=== PATIENT | female | born 1940 | race Caucasian/White ===

== ENCOUNTER → 2016-06-03 | Outpatient (CLI) | payer MEDICARE, OTHER | LOC: MW.CHIM 08:00 | PROVIDERS: ATTEND Internal Medicine | DX: I47.1 Supraventricular tachycardia (principal) | CPT/HCPCS: 99204 ==

== ENCOUNTER 2016-06-10 23:52 | Emergency (ER) | payer MEDICARE, OTHER ==
--- NOTE | 2016-06-11 00:11 | EDM.PDOC ---
ED HPI GENERAL MEDICAL PROBLEM - General Chief Complaint: Back Pain or Injury Stated Complaint: PT FELL AT HOME HURT BACK AND HIP Time Seen by Provider: 06/10/16 23:59 - History of Present Illness INITIAL COMMENTS - FREE TEXT/NARRATIVE: HISTORY AND PHYSICAL: History of present illness: The patient is a 75-year-old female who lives at home alone and spends most of her day in a special recliner that elevates to bring her to a standing position and she presents tonight via EMS after she did elevate the chair and she went to stand up and she slid down the chair landing onto her butt and could not get up. According to the patient she did not hit her head pass out or black out and has no head neck or upper back pain but has some lower back pain. She denies any specific pain to me and has no lower upper extremity complaints. Patient has a long-standing history of generalized weakness and says that that is not new and she's been eating and drinking normally without fever chills chest pain shortness of breath nausea vomiting or abdominal complaints. Review of systems: As per history of present illness and below otherwise all systems reviewed and negative. Past medical history: As per history of present illness and as reviewed below otherwise noncontributory. Surgical history: As per history of present illness and as reviewed below otherwise noncontributory. Social history: No reported history of drug or alcohol abuse. Family history: As per history of present illness and as reviewed below otherwise noncontributory. Physical exam: General: Well-developed well-nourished female who is overweight nontoxic speaking clearly and easily in the ER HEENT: Atraumatic, normocephalic, pupils reactive, negative for conjunctival pallor or scleral icterus, mucous membranes moist, throat clear, neck supple, nontender, trachea midline. Lungs: Clear to auscultation, breath sounds equal bilaterally, chest nontender. Heart: S1S2, regular, negative for clicks, rubs, or JVD. Abdomen: Soft, nondistended, nontender. Negative for masses or hepatosplenomegaly. Negative for costovertebral tenderness. Pelvis: Stable nontender. There is no lateral hip tenderness on palpation Genitourinary: Deferred. Rectal: Deferred. Extremities: Atraumatic, negative for cords or calf pain. Neurovascular unremarkable. There is some soft tissue edema of her feet bilaterally but there is no bony tenderness or ecchymosis appreciated Neuro: Awake, alert, oriented. Cranial nerves II through XII unremarkable.sensory unremarkable throughout. Motor of lower extremities is 4/5 in upper extremity is 5/5 in the bed Exam nonfocal. Back: There are no midline step-offs his defects the thoracic lumbar spine no posterior rib posterior pelvis pain there is some soft tissue tenderness on palpation around the lumbar region without abrasion ecchymosis or deformities Diagnostics: X-ray of pelvis and lumbar spine CBC CMP Therapeutics: Patient refused pain medications Please note the patient states uses a walker at home at all times Impression: Minor fall with lower back pain/contusion stable Definitive disposition and diagnosis as appropriate pending reevaluation and review of above. lower back Pain Score (Numeric/FACES): 3 right hip Pain Score (Numeric/FACES): 3 - Related Data Allergies Allergy/AdvReac Type Severity Reaction Status Date / Time codeine Allergy Dizziness Verified 06/11/16 00:05 Home Meds: Home Meds traZODone 200 mg PO BEDTIME 04/11/15 [History] Aspirin 1 tab PO DAILY 05/06/16 [History] Meclizine HCl [Travel Sickness] 25 mg PO ASDIRECTED 05/06/16 [History] Metoprolol Succinate [Toprol XL] 25 mg PO DAILY #30 tab.er 05/07/16 [Rx] Past Medical History HEENT History: Reports: Hard of hearing Cardiovascular History: Reports: None Respiratory History: Reports: COPD Gastrointestinal History: Reports: Cholelithiasis Genitourinary History: Reports: None 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: Reports: None Musculoskeletal History: Reports: Fibromyalgia Neurological History: Reports: None Psychiatric History: Reports: Anxiety Endocrine/Metabolic History: Reports: None Hematologic History: Reports: None Immunologic History: Reports: None Oncologic (Cancer) History: Reports: None Dermatologic History: Reports: None - Infectious Disease History Infectious Disease History: Reports: Chicken pox, Measles Other Infectious Disease History: childhood - Past Surgical History Head Surgeries/Procedures: Reports: None HEENT Surgical History: Reports: None Respiratory Surgical History: Reports: None GI Surgical History: Reports: Cholecystectomy Other GI Surgeries/Procedures: Stomach staple Social & Family History - Family History Family Medical History: Noncontributory HEENT: Reports: None Cardiac: Reports: [place] Respiratory: Reports: None GI: Reports: None : Reports: None OBGYN: Reports: None Musculoskeletal: Reports: None Neurological: Reports: None Psychiatric: Reports: None Endocrine/Metabolic: Reports: None Hematologic: Reports: None Immunologic: Reports: None Dermatologic: Reports: None Oncologic: Reports: None - Tobacco Use Smoking Status *Q: Never Smoker Second Hand Smoke Exposure: No - Caffeine Use Caffeine Use: Reports: Coffee Other Caffeine Use: 2 cups/day Caffeine Use Comment: 2 drinks/day - Recreational Drug Use Recreational Drug Use: No - Living Situation & Occupation Living situation: Reports: Occupation: retired ED ROS GENERAL - Review of Systems Review Of Systems: ROS reveals no pertinent complaints other than HPI. ED EXAM, GENERAL - Physical Exam Exam: See Below (see dictation) Course - Vital Signs Last Recorded V/S: Last Vital Signs Temp 36.5 C 06/11/16 00:06 Pulse 71 06/11/16 00:06 Resp 16 06/11/16 00:06 BP 137/72 06/11/16 00:06 Pulse Ox 96 06/11/16 00:06 - Orders/Labs/Meds Orders: Active Orders 24 hr Category Date Time Status Lumbar Spine 2 or 3V [CR] Stat Exams 06/11/16 00:08 Taken Pelvis 1V or 2V [CR] Stat Exams 06/11/16 00:08 Taken Labs: Laboratory Tests 06/11/16 06/11/16 Range/Units 00:08 00:55 WBC 6.36 (4.0-11.0) K/uL RBC 4.74 (4.30-5.90) M/uL Hgb 12.8 (12.0-16.0) g/dL Hct 39.6 (36.0-46.0) % MCV 83.5 (80.0-98.0) fL MCH 27.0 (27.0-32.0) pg MCHC 32.3 (31.0-37.0) g/dL RDW Std Deviation 51.4 (28.0-62.0) fl RDW Coeff of Britni 17 H (11.0-15.0) % Plt Count 234 (150-400) K/uL MPV 9.80 (7.40-12.00) fL Neut % (Auto) 73.2 (48.0-80.0) % Lymph % (Auto) 14.2 L (16.0-40.0) % [place] % (Auto) 11.6 (0.0-15.0) % Eos % (Auto) 0.8 (0.0-7.0) % Baso % (Auto) 0.2 (0.0-1.5) % Neut # 4.7 (1.4-5.7) K/uL Lymph # 0.9 (0.6-2.4) K/uL [place] # 0.7 (0.0-0.8) K/uL Eos # 0.1 (0.0-0.7) K/uL Baso # 0.0 (0.0-0.1) K/uL Nucleated RBC % 0.0 /100WBC Nucleated RBCs # 0 K/uL Sodium 139 (136-146) mmol/L Potassium 4.1 (3.5-5.1) mmol/L Chloride 102 (98-110) mmol/L Carbon Dioxide 28 (21-31) mmol/L BUN 15 (6.0-23.0) mg/dL Creatinine 1.0 (0.6-1.5) mg/dL Est Cr Clr Drug Dosing 51.40 mL/min Estimated GFR (MDRD) 54.2 ml/min Glucose 127 H (60-110) mg/dL Calcium 9.3 (8.8-10.8) mg/dL Total Bilirubin 0.8 (0.1-1.5) mg/dL AST 11 (5-40) IU/L ALT 8 (8-54) IU/L Alkaline Phosphatase 132 (40-150) Total Protein 7.3 (6.0-8.0) g/dL Albumin 3.6 (3.4-4.8) g/dL Globulin 3.7 H (2.0-3.5) g/dL Albumin/Globulin Ratio 1.0 L (1.3-2.8) Departure - Departure Time of Disposition: 02:00 Disposition: Home, Self-Care 01 Condition: good Clinical Impression: Fall Qualifiers: Encounter type: initial encounter Qualified Code(s): W19.XXXA - Unspecified fall, initial encounter Contusion, back Qualifiers: Encounter type: initial encounter Laterality: unspecified laterality Qualified Code(s): S20.229A - Contusion of unspecified back wall of thorax, initial encounter Forms: ED Department Discharge Additional Instructions: The following information is given to patients seen in the emergency department who are being discharged to home. This information is to outline your options for follow-up care. We provide all patients seen in our emergency department with a follow-up referral. The need for follow-up, as well as the timing and circumstances, are variable depending upon the specifics of your emergency department visit. If you don't have a primary care physician on staff, we will provide you with a referral. We always advise you to contact your personal physician following an emergency department visit to inform them of the circumstance of the visit and for follow-up with them and/or the need for any referrals to a consulting specialist. The emergency department will also refer you to a specialist when appropriate. This referral assures that you have the opportunity for followup care with a specialist. All of these measure are taken in an effort to provide you with optimal care, which includes your followup. Under all circumstances we always encourage you to contact your private physician who remains a resource for coordinating your care. When calling for followup care, please make the office aware that this follow-up is from your recent emergency room visit. If for any reason you are refused follow-up, please contact the [facility] emergency department at and ask to speak to the emergency department charge nurse. [facility] Primary care- Internal Medicine and Family [address] [address] Please take care to use her walker at all times and to be careful to position changing going very slowly was to avoid falls. Please call and followup with your primary care physician and return to ER as needed and as discussed. - My Orders Last 24 Hours: My Active Orders 06/11/16 00:08 Lumbar Spine 2 or 3V [CR] Stat Pelvis 1V or 2V [CR] Stat - Assessment/Plan Last 24 Hours: My Active Orders 06/11/16 00:08 Lumbar Spine 2 or 3V [CR] Stat Pelvis 1V or 2V [CR] Stat
[2016-06-11 02:22] VITALS: BP 153/78
--- NOTE | 2016-06-13 15:51 | CR ---
EXAM DATE: 06/10/16 PATIENT'S AGE: 75 Patient: KATIE DICKENS Facility: [place], [place] Site . Site : 1940 Study: XRay Spine Lumbar [id number]/18/2017 12:53:47 AM Ordering Physician: Doctor Silveira Final Report: INDICATION: Fall TECHNIQUE: Lumbar spine 3 view. COMPARISON: July 01, 2015 FINDINGS: Bones: Unchanged mild lateral listhesis of L4 on L5. No fractures or significant bone lesions. Joints: Mild multilevel degenerative disc and facet disease. Soft tissues: A round calcification in the pelvis may represent a calcified uterine fibroid. IMPRESSION: No acute fracture or subluxation. Dictated by Yessi Doan MD @ Jun 11 2016 12:55AM (Electronic Signature) Report Signed by Proxy and Original Signed Document filed in the Medical Record. [facility]
--- NOTE | 2016-06-13 16:11 | CR ---
EXAM DATE: 06/10/16 PATIENT'S AGE: 75 Patient: KATIE DICKENS Facility: [place], [place] Site . Site : 1940 Study: XRay Pelvis [id number]/18/2017 12:54:09 AM Ordering Physician: Doctor Silveira Final Report: Indication: Fall Technique: Two views pelvis Comparison: July 01, 2015. Findings: Bones: Alignment is normal. No fractures or bone lesions. Joint spaces: Mild to moderate degenerative changes within the hip joints and lower lumbar spine. Soft tissues: Round calcification overlying the pelvis may represent a uterine fibroid. Impression: No acute fracture or subluxation. Dictated by Yessi Doan MD @ Jun 11 2016 1:00AM (Electronic Signature) Report Signed by Proxy and Original Signed Document filed in the Medical Record. [facility]
== END 2016-06-11 02:21 | disposition home or self-care (01) ==
LOC: MW.ED 23:52
DX: S20.229A Contusion of unspecified back wall of thorax, initial encounter (principal); Z90.49 Acquired absence of other specified parts of digestive tract; Z79.899 Other long term (current) drug therapy; Z88.5 Allergy status to narcotic agent; W19.XXXA Unspecified fall, initial encounter; Y92.009 Unspecified place in unspecified non-institutional (private) residence as the place of occurrence of the external cause
CPT/HCPCS: 36415; 72100; 72100-26; 72170; 72170-26; 80053; 85025; 99282; 99284

== ENCOUNTER → 2016-06-22 | Outpatient (CLI) | payer MEDICARE, OTHER | LOC: MW.CHFP 08:00 | PROVIDERS: ATTEND Student in an Organized Health Care Education/Training Program | DX: Z00.8 Encounter for other general examination (principal) | CPT/HCPCS: 99214 ==

== ENCOUNTER 2016-07-22 19:29 | Emergency (ER) | payer MEDICARE, OTHER ==
[2016-07-22] MEDS ORDERED: Sodium Chloride 0.9% 10 ML Syringe FLUSH PRN (19:37)
[2016-07-22] MEDS ORDERED: Sodium Chloride 0.9% 2.5 ML Syringe FLUSH PRN (19:37)
--- NOTE | 2016-07-22 19:40 | EDM.PDOC ---
ED HPI NEURO - General Chief Complaint: Neurological Problem Stated Complaint: DIZZINESS Time Seen by Provider: 07/22/16 19:33 Source of Information: Reports: Patient, EMS History Limitations: Reports: No limitations - History of Present Illness Timing/Duration: Reports: Hour(s): Location (Neuro Complaint): Reports: generalized Quality (Neuro Complaint): Reports: weakness Severity: mild Improves with: Reports: Rest Worsens with: Reports: Movement Associated Symptoms: Reports: other (left hip pain X 3 days) - Related Data Allergies/ADRs: Allergies Allergy/AdvReac Type Severity Reaction Status Date / Time codeine Allergy Dizziness Verified 06/11/16 00:05 Home Meds: Home Meds traZODone 200 mg PO BEDTIME 04/11/15 [History] Aspirin 325 mg PO DAILY 05/06/16 [History] Meclizine HCl [Travel Sickness] 25 mg PO ASDIRECTED 05/06/16 [History] Metoprolol Succinate [Toprol XL] 25 mg PO DAILY #30 tab.er 05/07/16 [Rx] Past Medical History HEENT History: Reports: Hard of hearing Cardiovascular History: Reports: None Respiratory History: Reports: COPD Gastrointestinal History: Reports: Cholelithiasis Genitourinary History: Reports: None RN SANE History: Reports: None Musculoskeletal History: Reports: Fibromyalgia Neurological History: Reports: None Psychiatric History: Reports: Anxiety Endocrine/Metabolic History: Reports: None Hematologic History: Reports: None Immunologic History: Reports: None Oncologic (Cancer) History: Reports: None Dermatologic History: Reports: None - Infectious Disease History Infectious Disease History: Reports: Chicken pox, Measles Other Infectious Disease History: childhood - Past Surgical History Head Surgeries/Procedures: Reports: None HEENT Surgical History: Reports: None Respiratory Surgical History: Reports: None GI Surgical History: Reports: Cholecystectomy Other GI Surgeries/Procedures: Stomach staple Social & Family History - Family History Family Medical History: Noncontributory HEENT: Reports: None Cardiac: Reports: [place] Respiratory: Reports: None GI: Reports: None : Reports: None OBGYN: Reports: None Musculoskeletal: Reports: None Neurological: Reports: None Psychiatric: Reports: None Endocrine/Metabolic: Reports: None Hematologic: Reports: None Immunologic: Reports: None Dermatologic: Reports: None Oncologic: Reports: None - Tobacco Use Smoking Status *Q: Never Smoker Second Hand Smoke Exposure: No - Caffeine Use Caffeine Use: Reports: Coffee Other Caffeine Use: 2 cups/day Caffeine Use Comment: 2 drinks/day - Recreational Drug Use Recreational Drug Use: No - Living Situation & Occupation Living situation: Reports: Occupation: retired ED ROS GENERAL - Review of Systems Review Of Systems: ROS reveals no pertinent complaints other than HPI. ED EXAM, NEURO - Physical Exam Exam: See Below General Appearance: alert, WD/WN, no apparent distress Eye Exam: bilateral eye: EOMI, normal fundi, normal inspection, PERRL Ears: normal external exam, normal canal, normal TMs Nose: normal inspection, normal mucosa, no blood Throat/Mouth: Normal inspection, Normal lips, Normal teeth, Normal oropharynx, Normal voice Head Exam: atraumatic, normocephalic Neck: normal inspection, supple, non-tender, full range of motion Respiratory/Chest: no respiratory distress, lungs clear, normal breath sounds, no accessory muscle use, chest non-tender Cardiovascular: normal peripheral pulses, regular rate, rhythm, no edema, no gallop, no JVD, no murmur, no rub GI/Abdominal: normal bowel sounds, soft, non tender, no distention, no abnormal bruit Neurological: alert, normal mood/affect, normal dorsiflexion, CN II-XII intact, normal plantar flexion, normal gait, normal reflexes, oriented x 3 Extremities: normal inspection Psychiatric: flat affect Skin Exam: Warm, Dry, Intact, Normal color, No rash Course - Vital Signs Last Recorded V/S: Last Vital Signs Temp 36.6 C 07/22/16 19:36 Pulse 78 07/22/16 19:36 Resp 18 07/22/16 19:36 BP 140/59 L 07/22/16 19:36 Pulse Ox 96 07/22/16 19:36 - Orders/Labs/Meds Orders: Active Orders 24 hr Category Date Time Status Blood Glucose Check, Bedside [RC] ONETIME Care 07/22/16 19:36 Active EKG Documentation Completion [RC] STAT Care 07/22/16 19:36 Active Oxygen Therapy, ED [RC] ASDIRECTED Care 07/22/16 19:36 Active Chest 1V Frontal [CR] Stat Exams 07/22/16 19:37 Taken Head wo Cont [CT] Stat Exams 07/22/16 19:40 Taken Hip Min 2V or 3V w Pelvis Lt [CR] Stat Exams 07/22/16 19:37 Taken Sodium Chloride 0.9% [Saline Flush] Med 07/22/16 19:37 Active 10 ml FLUSH ASDIRECTED PRN Sodium Chloride 0.9% [Saline Flush] Med 07/22/16 19:37 Active 2.5 ml FLUSH ASDIRECTED PRN Saline Lock Insert [OM.PC] Stat Oth 07/22/16 19:36 Ordered Medication Orders Sodium Chloride (Saline Flush) 10 ml FLUSH ASDIRECTED PRN PRN Reason: Keep Vein Open Sodium Chloride (Saline Flush) 2.5 ml FLUSH ASDIRECTED PRN PRN Reason: Keep Vein Open Labs: Laboratory Tests 07/22/16 07/22/16 07/22/16 Range/Units 19:45 19:47 19:47 WBC 6.56 (4.0-11.0) K/uL RBC 4.68 (4.30-5.90) M/uL Hgb 12.8 (12.0-16.0) g/dL Hct 39.1 (36.0-46.0) % MCV 83.5 (80.0-98.0) fL MCH 27.4 (27.0-32.0) pg MCHC 32.7 (31.0-37.0) g/dL RDW Std Deviation 53.3 (28.0-62.0) fl RDW Coeff of Britni 17 H (11.0-15.0) % Plt Count 247 (150-400) K/uL MPV 10.40 (7.40-12.00) fL Add Manual Diff YES Neutrophils % (Manual) 38 L (48.0-80.0) % Band Neutrophils % 4 % Lymphocytes % (Manual) 46 H (16.0-40.0) % Monocytes % (Manual) 12 (0.0-15.0) % Nucleated RBC % 0.0 /100WBC Absolute Seg Neuts 2.5 Band Neutrophils # 0.3 Lymphocytes # (Manual) 3.0 Monocytes # (Manual) 0.8 Nucleated RBCs # 0 K/uL INR (0.86-1.11) Sodium 139 (136-146) mmol/L Potassium 3.6 (3.5-5.1) mmol/L Chloride 107 (98-110) mmol/L Carbon Dioxide 25 (21-31) mmol/L BUN 18 (6.0-23.0) mg/dL Creatinine 0.8 (0.6-1.5) mg/dL Est Cr Clr Drug Dosing 63.27 mL/min Estimated GFR (MDRD) > 60.0 ml/min Glucose 84 (60-110) mg/dL Calcium 8.7 L (8.8-10.8) mg/dL Total Bilirubin 0.4 (0.1-1.5) mg/dL AST 9 (5-40) IU/L ALT 6 L (8-54) IU/L Alkaline Phosphatase 100 (40-150) Troponin I (0.0-0.29) NG/ML Total Protein 6.2 (6.0-8.0) g/dL Albumin 3.1 L (3.4-4.8) g/dL Globulin 3.1 (2.0-3.5) g/dL Albumin/Globulin Ratio 1.0 L (1.3-2.8) Urine Color YELLOW Urine Appearance SLT CLOUDY Urine pH 5.0 (5.0-8.0) Ur Specific [place] 1.025 (1.001-1.035) Urine Protein NEGATIVE (NEGATIVE) mg/dL Urine Glucose (UA) NEGATIVE (NEGATIVE) mg/dL Urine Ketones NEGATIVE (NEGATIVE) mg/dL Urine Occult Blood TRACE-INTACT (NEGATIVE) Urine Nitrite NEGATIVE (NEGATIVE) Urine Bilirubin NEGATIVE (NEGATIVE) Urine Urobilinogen 2.0 H (<2.0) EU/dL Ur Leukocyte Esterase NEGATIVE (NEGATIVE) Urine RBC 1-6 (0-2/HPF) Urine WBC 0-2 (0-5/HPF) Ur Epithelial Cells FEW (NONE-FEW) Urine Bacteria RARE (NEGATIVE) Urine Mucus MODERATE (NONE-MOD) 07/22/16 07/22/16 Range/Units 19:47 20:02 WBC (4.0-11.0) K/uL RBC (4.30-5.90) M/uL Hgb (12.0-16.0) g/dL Hct (36.0-46.0) % MCV (80.0-98.0) fL MCH (27.0-32.0) pg MCHC (31.0-37.0) g/dL RDW Std Deviation (28.0-62.0) fl RDW Coeff of Britni (11.0-15.0) % Plt Count (150-400) K/uL MPV (7.40-12.00) fL Add Manual Diff Neutrophils % (Manual) (48.0-80.0) % Band Neutrophils % % Lymphocytes % (Manual) (16.0-40.0) % Monocytes % (Manual) (0.0-15.0) % Nucleated RBC % /100WBC Absolute Seg Neuts Band Neutrophils # Lymphocytes # (Manual) Monocytes # (Manual) Nucleated RBCs # K/uL INR 1.03 (0.86-1.11) Sodium (136-146) mmol/L Potassium (3.5-5.1) mmol/L Chloride (98-110) mmol/L Carbon Dioxide (21-31) mmol/L BUN (6.0-23.0) mg/dL Creatinine (0.6-1.5) mg/dL Est Cr Clr Drug Dosing mL/min Estimated GFR (MDRD) ml/min Glucose (60-110) mg/dL Calcium (8.8-10.8) mg/dL Total Bilirubin (0.1-1.5) mg/dL AST (5-40) IU/L ALT (8-54) IU/L Alkaline Phosphatase (40-150) Troponin I < 0.10 (0.0-0.29) NG/ML Total Protein (6.0-8.0) g/dL Albumin (3.4-4.8) g/dL Globulin (2.0-3.5) g/dL Albumin/Globulin Ratio (1.3-2.8) Urine Color Urine Appearance Urine pH (5.0-8.0) Ur Specific [place] (1.001-1.035) Urine Protein (NEGATIVE) mg/dL Urine Glucose (UA) (NEGATIVE) mg/dL Urine Ketones (NEGATIVE) mg/dL Urine Occult Blood (NEGATIVE) Urine Nitrite (NEGATIVE) Urine Bilirubin (NEGATIVE) Urine Urobilinogen (<2.0) EU/dL Ur Leukocyte Esterase (NEGATIVE) Urine RBC (0-2/HPF) Urine WBC (0-5/HPF) Ur Epithelial Cells (NONE-FEW) Urine Bacteria (NEGATIVE) Urine Mucus (NONE-MOD) Meds: Medications Generic Name Dose Route Start Last Admin Trade Name Freq PRN Reason Stop Dose Admin Sodium Chloride 10 ml 07/22/16 19:37 Saline Flush FLUSH ASDIRECTED PRN Keep Vein Open Sodium Chloride 2.5 ml 07/22/16 19:37 Saline Flush FLUSH ASDIRECTED PRN Keep Vein Open Departure - Departure Time of Disposition: 21:17 Disposition: Home, Self-Care 01 Condition: good Clinical Impression: Dizziness Forms: ED Department Discharge Additional Instructions: The following information is given to patients seen in the emergency department who are being discharged to home. This information is to outline your options for follow-up care. We provide all patients seen in our emergency department with a follow-up referral. The need for follow-up, as well as the timing and circumstances, are variable depending upon the specifics of your emergency department visit. If you don't have a primary care physician on staff, we will provide you with a referral. We always advise you to contact your personal physician following an emergency department visit to inform them of the circumstance of the visit and for follow-up with them and/or the need for any referrals to a consulting specialist. The emergency department will also refer you to a specialist when appropriate. This referral assures that you have the opportunity for followup care with a specialist. All of these measure are taken in an effort to provide you with optimal care, which includes your followup. Under all circumstances we always encourage you to contact your private physician who remains a resource for coordinating your care. When calling for followup care, please make the office aware that this follow-up is from your recent emergency room visit. If for any reason you are refused follow-up, please contact the [facility] emergency department at and asked to speak to the emergency department charge nurse. No abnormalities were noted on your exam in the emergency room tonight his followup next week by primary care provider - My Orders Last 24 Hours: My Active Orders 07/22/16 19:36 Blood Glucose Check, Bedside [] ONETIME EKG Documentation Completion [RC] STAT Oxygen Therapy, ED [RC] ASDIRECTED Saline Lock Insert [OM.PC] Stat 07/22/16 19:37 Chest 1V Frontal [CR] Stat Hip Min 2V or 3V w Pelvis Lt [CR] Stat Sodium Chloride 0.9% [Saline Flush] 10 ml FLUSH ASDIRECTED PRN Sodium Chloride 0.9% [Saline Flush] 2.5 ml FLUSH ASDIRECTED PRN 07/22/16 19:40 Head wo Cont [CT] Stat - Assessment/Plan Last 24 Hours: My Active Orders 07/22/16 19:36 Blood Glucose Check, Bedside [RC] ONETIME EKG Documentation Completion [RC] STAT Oxygen Therapy, ED [RC] ASDIRECTED Saline Lock Insert [OM.PC] Stat 07/22/16 19:37 Chest 1V Frontal [CR] Stat Hip Min 2V or 3V w Pelvis Lt [CR] Stat Sodium Chloride 0.9% [Saline Flush] 10 ml FLUSH ASDIRECTED PRN Sodium Chloride 0.9% [Saline Flush] 2.5 ml FLUSH ASDIRECTED PRN 07/22/16 19:40 Head wo Cont [CT] Stat
[2016-07-22 20:31] LABS: CHLORIDE,CL 107 mmol/L (98-110); SODIUM,NA 139 mmol/L (136-146)
[2016-07-22] MEDS ORDERED: Ondansetron 4 MG Tab.DIS PO ONE (21:20)
[2016-07-22 21:25] VITALS: BP 175/81
--- NOTE | 2016-07-24 17:46 | CT ---
EXAM DATE: 07/22/16 PATIENT'S AGE: 76 Patient: KATIE DICKENS Facility: [place], [place] Site . Site : 1940 Study: CT Head [id number]/28/2017 8:31:46 PM Ordering Physician: Doctor Silveira Final Report: INDICATION: Dizziness and confusion since this afternoon. Denies fall. CT HEAD WITHOUT CONTRAST TECHNIQUE: Multiple axial CT images were performed through the head without intravenous contrast administration. COMPARISON: 04/24/[address] FINDINGS: No acute intracranial hemorrhage is identified. No extra-axial collections are evident and there is no mass effect or midline shift. There is mild diffuse age-related brain atrophy, similar to the previous exam. 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 Batres-white differentiation is within normal limits. There is unchanged patchy hypodensity in the periventricular white matter, a nonspecific finding which most likely reflects chronic small vessel ischemic change. Mild intracranial atherosclerotic vascular calcifications are noted. Osseous structures are within normal limits and no fractures are seen. There has been interval right- sided cataract surgery. Included portions of the paranasal sinuses and mastoid air cells are normally aerated aside from unchanged very small mucous retention cysts or polyps along the floors of the maxillary sinuses bilaterally. IMPRESSION: 1. No acute intracranial abnormality identified. 2. 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 JONELLE INIGUEZ MD [employer] Dictated by Manuel Iniguez MD @ 07/22/2016 8:42:42 PM Dictated by: Manuel Iniguez MD @ 07/22/2016 20:44:41 (Electronic Signature) Report Signed by Proxy. [facility]ENTER[facility]
--- NOTE | 2016-07-24 17:47 | CR ---
EXAM DATE: 07/22/16 PATIENT'S AGE: 76 Patient: KATIE DIKCENS Facility: [place], [place] Site . Site : 1940 Study: XRay Chest [id number]/28/2017 8:42:14 PM Ordering Physician: Doctor Silveira Final Report: INDICATION: Shortness of breath. COMPARISON: 05/06/2016. FINDINGS/IMPRESSION: No acute infiltrates or other acute intrathoracic abnormalities are demonstrated. Unchanged minimal basilar lung scarring or atelectasis. Normal heart size and pulmonary vasculature. No pleural effusions. Diffuse osseous demineralization, unchanged. Dictated by Manuel Avalos MD @ 07/22/2016 8:51:16 PM Dictated by: Manuel Avalos MD @ 07/22/2016 20:51:53 (Electronic Signature) Report Signed by Proxy. [facility]ITALSt[facility]
--- NOTE | 2016-07-24 17:48 | CR ---
EXAM DATE: 07/22/16 PATIENT'S AGE: 76 Patient: KATIE DICKENS Facility: [place], [place] Site . Site : 1940 Study: XRay Extremity [id number]/28/2017 8:42:40 PM Ordering Physician: Doctor Silveira Final Report: INDICATION: Chronic left hip pain. COMPARISON: 06/11/2016. FINDINGS/IMPRESSION: Unchanged minimal bilateral hip DJD changes. No acute fracture identified. Diffuse osteopenia, as before. Degenerative changes in the lower lumbar spine. Intact sacroiliac joints. Unchanged small calcification in the right pelvis possibly representing a small calcified uterine fibroid. Dictated by Manuel Avalos MD @ 07/22/2016 8:48:04 PM Dictated by: Manuel Avalos MD @ 07/22/2016 20:48:21 (Electronic Signature) Report Signed by Proxy. [facility]ITALSt[facility]
== END 2016-07-22 21:30 | disposition home or self-care (01) ==
LOC: MW.ED 19:29
DX: R42 Dizziness and giddiness (principal); J44.9 Chronic obstructive pulmonary disease, unspecified; Z79.899 Other long term (current) drug therapy; Z88.5 Allergy status to narcotic agent
CPT/HCPCS: 36415; 70450; 71010; 73502; 80053; 81001; 84484; 85025; 85610; 93005; 99284; A9270; 99283

== ENCOUNTER → 2016-08-05 | Outpatient (CLI) | payer MEDICARE, OTHER ==
--- NOTE | 2016-08-09 11:29 | ECHO ---
EXAM DATE: 08/05/16 PATIENT'S AGE: 76 The echocardiogram report can be seen in this patient's EMR (Electronic Medical Record) in the Reports section. ANDREW
== END ==
LOC: MW.US 10:44
PROVIDERS: ATTEND Internal Medicine
DX: I47.1 Supraventricular tachycardia (principal)
CPT/HCPCS: 93306

== ENCOUNTER 2016-10-13 16:20 | Emergency (ER) | payer MEDICARE, OTHER ==
--- NOTE | 2016-10-13 17:29 | EDM.PDOC ---
ED HPI GENERAL MEDICAL PROBLEM - General Chief Complaint: General Stated Complaint: DIZZY Time Seen by Provider: 10/13/16 16:37 Source of Information: Reports: Patient History Limitations: Reports: No Limitations - History of Present Illness INITIAL COMMENTS - FREE TEXT/NARRATIVE: HISTORY AND PHYSICAL: History of present illness: [Patient comes to the emergency room by EMS complaining of feeling lightheaded this afternoon. Symptoms came on gradually over the afternoon but she describes them as mild. She states that she wants to move to the care home and requests that this be initiated through the ER. She complains of a rash under both breasts that started in the past day. She states that she eats 1 meal per day that is brought to her by [employer], but later states that she does eat a pizza and chicken wings every evening that she has delivered to her home. She is able to get around her home and usually uses a wheelchair and has friends come to her home and help her every day with daily tasks and bathing. She denies recent illness and infection, headache, fainting and recent falls. No chest pain shortness of breath and difficulty breathing. Appetite has been normal. No abdominal pain. No nausea vomiting constipation or diarrhea. No burning with urination or blood in her urine. No new muscle or joint aches or pains. No new swelling. Mood has been normal. Brother who is DPOA presents to the emergency room and since the patient. Patient sees Dr. Marcus Menchaca, can't remember when she last saw him.] Review of systems: As per history of present illness and below otherwise all systems reviewed and negative. Past medical history: As per history of present illness and as reviewed below otherwise noncontributory. Surgical history: As per history of present illness and as reviewed below otherwise noncontributory. Social history: No reported history of drug or alcohol abuse. Family history: As per history of present illness and as reviewed below otherwise noncontributory. Physical exam: HEENT: Atraumatic, normocephalic. Oral mucous membranes are pink and moist. Breasts: Normal in appearance. Brightly erythematous confluent red beefy rash underneath both breasts with satellite lesions present. Lungs: Clear to auscultation, breath sounds equal bilaterally. Heart: S1S2, regular rate and rhythm. Abdomen: Obese, Soft, nondistended, nontender. No guarding, masses or rebound. Extremities: Atraumatic in appearance. Mild edema to right lower leg, none on left. Neurovascular unremarkable. Neuro: Awake, alert, oriented. Motor and sensory unremarkable throughout. Exam nonfocal. Psych: Is agitated at times while in the ER, particularly while visiting with her brother. Diagnostics: [CBC, CMP, UA, chest x-ray, EKG] Therapeutics: [250 ML's normal saline bolus] Impression: [Candidiasis, inframammary folds Lightheadedness] Plan: [Patient refused head CT. Upon reexamination she states that she feels improved and wants to go home. Reviewed with her that her labs, chest x-ray and EKG are normal and do not give any reason for her lightheadedness. She states again that she wants to go home as she is feeling better. Reviewed with patient and her brother that she should contact her PCP for care home admission if she so desires. Patient and brother verbalize understanding of this plan and agree to do so. She is given an Rx for nystatin cream 100,000 units #1 large tube sig apply to affected area 3 times daily 0 refills, keep this area clean and dry, may need to put some cloth between her breast and abdomen.] Definitive disposition and diagnosis as appropriate pending reevaluation and review of above. - Related Data Allergies Allergy/AdvReac Type Severity Reaction Status Date / Time codeine Allergy Dizziness Verified 06/11/16 00:05 Home Meds: Home Meds traZODone 200 mg PO BEDTIME 04/11/15 [History] Aspirin 325 mg PO DAILY 05/06/16 [History] Meclizine HCl [Travel Sickness] 25 mg PO ASDIRECTED 05/06/16 [History] Metoprolol Succinate [Toprol XL] 25 mg PO DAILY #30 tab.er 05/07/16 [Rx] Past Medical History HEENT History: Reports: Hard of Hearing Cardiovascular History: Reports: None, Hypertension, SOB on Exertion Respiratory History: Reports: COPD Gastrointestinal History: Reports: Cholelithiasis Genitourinary History: Reports: None [employer] History: Reports: None Musculoskeletal History: Reports: Fibromyalgia Neurological History: Reports: None Psychiatric History: Reports: Anxiety Endocrine/Metabolic History: Reports: None Hematologic History: Reports: None Immunologic History: Reports: None Oncologic (Cancer) History: Reports: None Dermatologic History: Reports: None - Infectious Disease History Infectious Disease History: Reports: Chicken Pox, Measles Other Infectious Disease History: childhood - Past Surgical History Head Surgeries/Procedures: Reports: None Respiratory Surgical History: Reports: None GI Surgical History: Reports: Cholecystectomy Other GI Surgeries/Procedures: Stomach staple Social & Family History - Family History Family Medical History: Noncontributory HEENT: Reports: None Cardiac: Reports: [place] Respiratory: Reports: None GI: Reports: None : Reports: None OBGYN: Reports: None Musculoskeletal: Reports: None Neurological: Reports: None Psychiatric: Reports: None Endocrine/Metabolic: Reports: None Hematologic: Reports: None Immunologic: Reports: None Dermatologic: Reports: None Oncologic: Reports: None - Tobacco Use Smoking Status *Q: Never Smoker Second Hand Smoke Exposure: No - Caffeine Use Caffeine Use: Reports: Coffee, Soda Other Caffeine Use: 2 cups/day Caffeine Use Comment: 2 drinks/day - Recreational Drug Use Recreational Drug Use: No - Living Situation & Occupation Living situation: Reports: Occupation: Retired ED ROS GENERAL - Review of Systems Review Of Systems: ROS reveals no pertinent complaints other than HPI. ED EXAM, GENERAL - Physical Exam Exam: See Below Course - Vital Signs Last Recorded V/S: Last Vital Signs Temp 97.3 F 10/13/16 16:25 Pulse 67 10/13/16 17:45 Resp 18 10/13/16 17:45 BP 146/76 H 10/13/16 17:45 Pulse Ox 97 10/13/16 17:45 - Orders/Labs/Meds Orders: Active Orders 24 hr Category Date Time Status EKG Documentation Completion [RC] STAT Care 10/13/16 16:38 Active Chest 2V [CR] Stat Exams 10/13/16 16:38 Taken Labs: Laboratory Tests 10/13/16 10/13/16 10/13/16 Range/Units 16:50 16:50 17:30 WBC 6.40 (4.0-11.0) K/uL RBC 4.48 (4.30-5.90) M/uL Hgb 12.7 (12.0-16.0) g/dL Hct 37.8 (36.0-46.0) % MCV 84.4 (80.0-98.0) fL MCH 28.3 (27.0-32.0) pg MCHC 33.6 (31.0-37.0) g/dL RDW Std Deviation 53.5 (28.0-62.0) fl RDW Coeff of Britni 17 H (11.0-15.0) % Plt Count 246 (150-400) K/uL MPV 9.80 (7.40-12.00) fL Neut % (Auto) 48.5 (48.0-80.0) % Lymph % (Auto) 34.1 (16.0-40.0) % [place] % (Auto) 15.5 H (0.0-15.0) % Eos % (Auto) 1.7 (0.0-7.0) % Baso % (Auto) 0.2 (0.0-1.5) % Neut # (Auto) 3.1 (1.4-5.7) K/uL Lymph # (Auto) 2.2 (0.6-2.4) K/uL [place] # (Auto) 1.0 H (0.0-0.8) K/uL Eos # (Auto) 0.1 (0.0-0.7) K/uL Baso # (Auto) 0.0 (0.0-0.1) K/uL Nucleated RBC % 0.0 /100WBC Nucleated RBCs # 0 K/uL Sodium 140 (136-146) mmol/L Potassium 3.9 (3.5-5.1) mmol/L Chloride 108 (98-110) mmol/L Carbon Dioxide 26 (21-31) mmol/L BUN 25 H (6.0-23.0) mg/dL Creatinine 0.9 (0.6-1.5) mg/dL Est Cr Clr Drug Dosing 56.24 mL/min Estimated GFR (MDRD) > 60.0 ml/min Glucose 105 (60-110) mg/dL Calcium 8.6 L (8.8-10.8) mg/dL Total Bilirubin 0.5 (0.1-1.5) mg/dL AST 12 (5-40) IU/L ALT 9 (8-54) IU/L Alkaline Phosphatase 123 (40-150) Total Protein 6.6 (6.0-8.0) g/dL Albumin 3.2 L (3.4-4.8) g/dL Globulin 3.4 (2.0-3.5) g/dL Albumin/Globulin Ratio 0.9 L (1.3-2.8) Urine Color YELLOW Urine Appearance CLEAR Urine pH 6.0 (5.0-8.0) Ur Specific [place] >= 1.030 (1.001-1.035) Urine Protein NEGATIVE (NEGATIVE) mg/dL Urine Glucose (UA) NEGATIVE (NEGATIVE) mg/dL Urine Ketones NEGATIVE (NEGATIVE) mg/dL Urine Occult Blood NEGATIVE (NEGATIVE) Urine Nitrite NEGATIVE (NEGATIVE) Urine Bilirubin NEGATIVE (NEGATIVE) Urine Urobilinogen 1.0 (<2.0) EU/dL Ur Leukocyte Esterase TRACE (NEGATIVE) Urine RBC 2-4 (0-2/HPF) Urine WBC 20-25 (0-5/HPF) Ur Epithelial Cells FEW (NONE-FEW) Urine Bacteria FEW (NEGATIVE) Meds: Medications Discontinued Medications Generic Name Dose Route Start Last Admin Trade Name Freq PRN Reason Stop Dose Admin Sodium Chloride 1,000 mls @ 999 mls/hr 10/13/16 17:40 10/13/16 17:40 Normal Saline IV 10/13/16 18:40 999 mls/hr NOW STA Administration Departure - Departure Time of Disposition: 18:15 Disposition: Home, Self-Care 01 Clinical Impression: Candidiasis of breast - Discharge Information Instructions: Skin Yeast Infection Referrals: PCP,None [Primary Care Provider] - Forms: ED Department Discharge Additional Instructions: The following information is given to patients seen in the emergency department who are being discharged to home. This information is to outline your options for follow-up care. We provide all patients seen in our emergency department with a follow-up referral. The need for follow-up, as well as the timing and circumstances, are variable depending upon the specifics of your emergency department visit. If you don't have a primary care physician on staff, we will provide you with a referral. We always advise you to contact your personal physician following an emergency department visit to inform them of the circumstance of the visit and for follow-up with them and/or the need for any referrals to a consulting specialist. The emergency department will also refer you to a specialist when appropriate. This referral assures that you have the opportunity for follow-up care with a specialist. All of these measure are taken in an effort to provide you with optimal care, which includes your follow-up. Under all circumstances we always encourage you to contact your private physician who remains a resource for coordinating your care. When calling for follow-up care, please make the office aware that this follow-up is from your recent emergency room visit. If for any reason you are refused follow-up, please contact the [facility] emergency department at and asked to speak to the emergency department charge nurse. [facility] [address] [place] [id number] Follow-up with your primary care provider in 48-72 hours. Return to ER as needed as discussed. - My Orders Last 24 Hours: My Active Orders 10/13/16 16:38 EKG Documentation Completion [RC] STAT Chest 2V [CR] Stat - Assessment/Plan Last 24 Hours: My Active Orders 10/13/16 16:38 EKG Documentation Completion [RC] STAT Chest 2V [CR] Stat
[2016-10-13] MEDS ORDERED: Sodium Chloride 0.9% 1,000 ML IV STA (17:40)
[2016-10-13 17:45] VITALS: BP 146/76
[2016-10-13 17:49] LABS: CHLORIDE,CL 108 mmol/L (98-110); SODIUM,NA 140 mmol/L (136-146)
--- NOTE | 2016-10-14 09:15 | CR ---
EXAM DATE: 10/13/16 PATIENT'S AGE: 76 Patient: KATIE DICKENS Facility: [place], [place] Site . Site : 1940 Study: XRay Chest [id number]/20/2017 5:18:47 PM Ordering Physician: Doctor Silveira Final Report: HISTORY: Dizziness. FINDINGS: PA and lateral chest radiographs are compared to 22 July 2016. The cardiac silhouette is normal. Pulmonary vasculature is free of cephalization. There is linear density seen at the lung bases. No consolidations or pleural effusions identified. The spine is osteopenic mild anterior wedging in the region of T9 and T10. IMPRESSION: 1. Bibasilar scarring. 2. No acute cardiopulmonary disease. Dictated by Sintia Morin MD @ 10/13/2016 5:34:59 PM Dictated by: Sintia Morin MD @ 10/13/2016 17:35:11 (Electronic Signature) Report Signed by Proxy. [facility]
== END 2016-10-13 18:21 | disposition home or self-care (01) ==
LOC: MW.ED 16:20
DX: B37.9 Candidiasis, unspecified (principal); R42 Dizziness and giddiness; I10 Essential (primary) hypertension; J44.9 Chronic obstructive pulmonary disease, unspecified; F41.9 Anxiety disorder, unspecified; Z90.49 Acquired absence of other specified parts of digestive tract; Z79.82 Long term (current) use of aspirin; Z79.899 Other long term (current) drug therapy
CPT/HCPCS: 71020; 80053; 81001; 85025; 93005; 99284; J7040; 99283

== ENCOUNTER 2016-11-19 18:19 | Emergency (ER) | payer MEDICARE, OTHER ==
[2016-11-19] MEDS ORDERED: Sodium Chloride 0.9% 10 ML Syringe FLUSH PRN (18:23)
[2016-11-19] MEDS ORDERED: Sodium Chloride 0.9% 2.5 ML Syringe FLUSH PRN (18:23)
--- NOTE | 2016-11-19 18:26 | EDM.PDOC ---
ED HPI GENERAL MEDICAL PROBLEM - General Chief Complaint: General Stated Complaint: WEAKNESS Time Seen by Provider: 11/19/16 18:21 - History of Present Illness INITIAL COMMENTS - FREE TEXT/NARRATIVE: HISTORY AND PHYSICAL: History of present illness: Patient 76-year-old female presents with shortness of breath this seems of improved dramatically since arrival she denies chest pain palpitations diaphoresis nausea vomiting. She denies chronic lung disease she denies coronary artery disease. Review of systems: As per history of present illness and below otherwise all systems reviewed and negative. Past medical history: As per history of present illness and as reviewed below otherwise noncontributory. Surgical history: As per history of present illness and as reviewed below otherwise noncontributory. Social history: No reported history of drug or alcohol abuse. Family history: As per history of present illness and as reviewed below otherwise noncontributory. Physical exam: HEENT: Atraumatic, normocephalic, pupils reactive, negative for conjunctival pallor or scleral icterus, mucous membranes moist, throat clear, neck supple, nontender, trachea midline. Lungs: Clear to auscultation, breath sounds equal bilaterally, chest nontender. Heart: S1S2, regular, negative for clicks, rubs, or JVD. Abdomen: Soft, nondistended, nontender. Negative for masses or hepatosplenomegaly. Negative for costovertebral tenderness. Pelvis: Stable nontender. Genitourinary: Deferred. Rectal: Deferred. Extremities: Atraumatic, negative for cords or calf pain. Neurovascular unremarkable. Neuro: Awake, alert, oriented. Cranial nerves II through XII unremarkable. Cerebellum unremarkable. Motor and sensory unremarkable throughout. Exam nonfocal. Diagnostics: CBC CMP PT/INR troponin and BNP chest x-ray EKG Therapeutics: IV O2 monitor Impression: #1 dyspnea resolved Definitive disposition and diagnosis as appropriate pending reevaluation and review of above. - Related Data Allergies Allergy/AdvReac Type Severity Reaction Status Date / Time codeine Allergy Dizziness Verified 06/11/16 00:05 Home Meds: Home Meds traZODone 200 mg PO BEDTIME 04/11/15 [History] Aspirin 325 mg PO DAILY 05/06/16 [History] Meclizine HCl [Travel Sickness] 25 mg PO ASDIRECTED 05/06/16 [History] Metoprolol Succinate [Toprol XL] 25 mg PO DAILY #30 tab.er 05/07/16 [Rx] Past Medical History HEENT History: Reports: Hard of Hearing Cardiovascular History: Reports: None, Hypertension, SOB on Exertion Respiratory History: Reports: COPD Gastrointestinal History: Reports: Cholelithiasis Genitourinary History: Reports: None PROCESS ASSISTANT History: Reports: None Musculoskeletal History: Reports: Fibromyalgia Neurological History: Reports: None Psychiatric History: Reports: Anxiety Endocrine/Metabolic History: Reports: None Hematologic History: Reports: None Immunologic History: Reports: None Oncologic (Cancer) History: Reports: None Dermatologic History: Reports: None - Infectious Disease History Infectious Disease History: Reports: Chicken Pox, Measles Other Infectious Disease History: childhood - Past Surgical History Head Surgeries/Procedures: Reports: None Respiratory Surgical History: Reports: None GI Surgical History: Reports: Cholecystectomy Other GI Surgeries/Procedures: Stomach staple Social & Family History - Family History Family Medical History: Noncontributory HEENT: Reports: None Cardiac: Reports: [place] Respiratory: Reports: None GI: Reports: None : Reports: None OBGYN: Reports: None Musculoskeletal: Reports: None Neurological: Reports: None Psychiatric: Reports: None Endocrine/Metabolic: Reports: None Hematologic: Reports: None Immunologic: Reports: None Dermatologic: Reports: None Oncologic: Reports: None - Tobacco Use Smoking Status *Q: Never Smoker Second Hand Smoke Exposure: No - Caffeine Use Caffeine Use: Reports: Coffee, Soda Other Caffeine Use: 2 cups/day Caffeine Use Comment: 2 drinks/day - Recreational Drug Use Recreational Drug Use: No - Living Situation & Occupation Living situation: Reports: Occupation: Retired ED ROS GENERAL - Review of Systems Review Of Systems: ROS reveals no pertinent complaints other than HPI. ED EXAM, GENERAL - Physical Exam Exam: See Below (See dictation) Course - Vital Signs Text/Narrative:: Patient with marked improvement denies dyspnea eager for discharge discussed admission for observation patient declines Last Recorded V/S: Last Vital Signs Temp 36.3 C 11/19/16 18:20 Pulse 76 11/19/16 18:20 Resp 20 11/19/16 18:20 BP 147/73 H 11/19/16 18:20 Pulse Ox 95 11/19/16 18:20 - Orders/Labs/Meds Orders: Active Orders 24 hr Category Date Time Status Cardiac Monitoring [RC] . DIRECTED Care 11/19/16 18:23 Active EKG Documentation Completion [RC] STAT Care 11/19/16 18:23 Active Oxygen Therapy, ED [RC] ASDIRECTED Care 11/19/16 18:23 Active Chest 1V Frontal [CR] Stat Exams 11/19/16 18:24 Taken Sodium Chloride 0.9% [Saline Flush] Med 11/19/16 18:23 Active 10 ml FLUSH ASDIRECTED PRN Sodium Chloride 0.9% [Saline Flush] Med 11/19/16 18:23 Active 2.5 ml FLUSH ASDIRECTED PRN Saline Lock Insert [OM.PC] Stat Oth 11/19/16 18:23 Ordered Medication Orders Sodium Chloride (Saline Flush) 10 ml FLUSH ASDIRECTED PRN PRN Reason: Keep Vein Open Sodium Chloride (Saline Flush) 2.5 ml FLUSH ASDIRECTED PRN PRN Reason: Keep Vein Open Labs: Laboratory Tests 11/19/16 11/19/16 11/19/16 Range/Units 18:32 18:32 18:32 WBC 6.04 (4.0-11.0) K/uL RBC 4.55 (4.30-5.90) M/uL Hgb 12.9 (12.0-16.0) g/dL Hct 39.1 (36.0-46.0) % MCV 85.9 (80.0-98.0) fL MCH 28.4 (27.0-32.0) pg MCHC 33.0 (31.0-37.0) g/dL RDW Std Deviation 54.1 (28.0-62.0) fl RDW Coeff of Britni 17 H (11.0-15.0) % Plt Count 258 (150-400) K/uL MPV 9.80 (7.40-12.00) fL Neut % (Auto) 52.8 (48.0-80.0) % Lymph % (Auto) 30.6 (16.0-40.0) % [place] % (Auto) 14.4 (0.0-15.0) % Eos % (Auto) 2.0 (0.0-7.0) % Baso % (Auto) 0.2 (0.0-1.5) % Neut # (Auto) 3.2 (1.4-5.7) K/uL Lymph # (Auto) 1.9 (0.6-2.4) K/uL [place] # (Auto) 0.9 H (0.0-0.8) K/uL Eos # (Auto) 0.1 (0.0-0.7) K/uL Baso # (Auto) 0.0 (0.0-0.1) K/uL Nucleated RBC % 0.0 /100WBC Nucleated RBCs # 0 K/uL INR 1.02 (0.86-1.11) Sodium 141 (136-146) mmol/L Potassium 4.0 (3.5-5.1) mmol/L Chloride 108 (98-110) mmol/L Carbon Dioxide 27 (21-31) mmol/L BUN 22 (6.0-23.0) mg/dL Creatinine 1.1 (0.6-1.5) mg/dL Est Cr Clr Drug Dosing 44.58 mL/min Estimated GFR (MDRD) 48.4 ml/min Glucose 105 (60-110) mg/dL Calcium 9.1 (8.8-10.8) mg/dL Total Bilirubin 0.6 (0.1-1.5) mg/dL AST 11 (5-40) IU/L ALT 10 (8-54) IU/L Alkaline Phosphatase 135 (40-150) Troponin I (0.0-0.29) NG/ML B-Natriuretic Peptide (<100) PG/ML Total Protein 6.7 (6.0-8.0) g/dL Albumin 3.4 (3.4-4.8) g/dL Globulin 3.3 (2.0-3.5) g/dL Albumin/Globulin Ratio 1.0 L (1.3-2.8) 11/19/16 11/19/16 Range/Units 18:32 18:32 WBC (4.0-11.0) K/uL RBC (4.30-5.90) M/uL Hgb (12.0-16.0) g/dL Hct (36.0-46.0) % MCV (80.0-98.0) fL MCH (27.0-32.0) pg MCHC (31.0-37.0) g/dL RDW Std Deviation (28.0-62.0) fl RDW Coeff of Britni (11.0-15.0) % Plt Count (150-400) K/uL MPV (7.40-12.00) fL Neut % (Auto) (48.0-80.0) % Lymph % (Auto) (16.0-40.0) % [place] % (Auto) (0.0-15.0) % Eos % (Auto) (0.0-7.0) % Baso % (Auto) (0.0-1.5) % Neut # (Auto) (1.4-5.7) K/uL Lymph # (Auto) (0.6-2.4) K/uL [place] # (Auto) (0.0-0.8) K/uL Eos # (Auto) (0.0-0.7) K/uL Baso # (Auto) (0.0-0.1) K/uL Nucleated RBC % /100WBC Nucleated RBCs # K/uL INR (0.86-1.11) Sodium (136-146) mmol/L Potassium (3.5-5.1) mmol/L Chloride (98-110) mmol/L Carbon Dioxide (21-31) mmol/L BUN (6.0-23.0) mg/dL Creatinine (0.6-1.5) mg/dL Est Cr Clr Drug Dosing mL/min Estimated GFR (MDRD) ml/min Glucose (60-110) mg/dL Calcium (8.8-10.8) mg/dL Total Bilirubin (0.1-1.5) mg/dL AST (5-40) IU/L ALT (8-54) IU/L Alkaline Phosphatase (40-150) Troponin I < 0.10 (0.0-0.29) NG/ML B-Natriuretic Peptide 61 (<100) PG/ML Total Protein (6.0-8.0) g/dL Albumin (3.4-4.8) g/dL Globulin (2.0-3.5) g/dL Albumin/Globulin Ratio (1.3-2.8) Meds: Medications Generic Name Dose Route Start Last Admin Trade Name Freq PRN Reason Stop Dose Admin Sodium Chloride 10 ml 11/19/16 18:23 Saline Flush FLUSH ASDIRECTED PRN Keep Vein Open Sodium Chloride 2.5 ml 11/19/16 18:23 Saline Flush FLUSH ASDIRECTED PRN Keep Vein Open Departure - Departure Time of Disposition: 19:28 Disposition: Home, Self-Care 01 Condition: Good Clinical Impression: Dyspnea - Discharge Information Forms: ED Department Discharge Additional Instructions: The following information is given to patients seen in the emergency department who are being discharged to home. This information is to outline your options for follow-up care. We provide all patients seen in our emergency department with a follow-up referral. The need for follow-up, as well as the timing and circumstances, are variable depending upon the specifics of your emergency department visit. If you don't have a primary care physician on staff, we will provide you with a referral. We always advise you to contact your personal physician following an emergency department visit to inform them of the circumstance of the visit and for follow-up with them and/or the need for any referrals to a consulting specialist. The emergency department will also refer you to a specialist when appropriate. This referral assures that you have the opportunity for followup care with a specialist. All of these measure are taken in an effort to provide you with optimal care, which includes your followup. Under all circumstances we always encourage you to contact your private physician who remains a resource for coordinating your care. When calling for followup care, please make the office aware that this follow-up is from your recent emergency room visit. If for any reason you are refused follow-up, please contact the [facility] emergency department at and asked to speak to the emergency department charge nurse. Follow-up primary medical doctor 1-2 days return as needed as discussed - My Orders Last 24 Hours: My Active Orders 11/19/16 18:23 Cardiac Monitoring [RC] . DIRECTED EKG Documentation Completion [RC] STAT Oxygen Therapy, ED [RC] ASDIRECTED Sodium Chloride 0.9% [Saline Flush] 10 ml FLUSH ASDIRECTED PRN Sodium Chloride 0.9% [Saline Flush] 2.5 ml FLUSH ASDIRECTED PRN Saline Lock Insert [OM.PC] Stat 11/19/16 18:24 Chest 1V Frontal [CR] Stat - Assessment/Plan Last 24 Hours: My Active Orders 11/19/16 18:23 Cardiac Monitoring [RC] . DIRECTED EKG Documentation Completion [RC] STAT Oxygen Therapy, ED [RC] ASDIRECTED Sodium Chloride 0.9% [Saline Flush] 10 ml FLUSH ASDIRECTED PRN Sodium Chloride 0.9% [Saline Flush] 2.5 ml FLUSH ASDIRECTED PRN Saline Lock Insert [OM.PC] Stat 11/19/16 18:24 Chest 1V Frontal [CR] Stat
[2016-11-19 19:55] VITALS: BP 167/62
--- NOTE | 2016-11-21 12:19 | CR ---
EXAM DATE: 11/19/16 PATIENT'S AGE: 76 Patient: KATIE DICKENS Facility: [place], [place] Site . Site : 1940 Study: XRay Chest [id number]/26/2017 7:10:51 PM Ordering Physician: Stefany Meeks Final Report: Indication: Pain, shortness of breath Technique: Chest 1 view Comparison: October 13, 2016. Findings/Impression: Cardiovascular and mediastinum: Heart size and vasculature are normal in caliber and appearance. Mediastinum is within normal limits. Lungs and pleural space: Minimal linear atelectasis or scarring at the left lung base. The lungs are otherwise clear. No sign of pleural effusion. No pneumothorax. Bones and soft tissues: No significant findings. Impression: : No acute abnormality. Dictated by Yessi Doan MD @ Nov 19 2016 7:13PM (Electronic Signature) Report Signed by Proxy. ANDREW
== END 2016-11-19 19:38 | disposition home or self-care (01) ==
LOC: MW.ED 18:19
DX: R06.00 Dyspnea, unspecified (principal); J44.9 Chronic obstructive pulmonary disease, unspecified; Z88.5 Allergy status to narcotic agent; Z79.82 Long term (current) use of aspirin; Z79.899 Other long term (current) drug therapy; Z90.49 Acquired absence of other specified parts of digestive tract
CPT/HCPCS: 36415; 71010; 71010-26; 80053; 83880; 84484; 85025; 85610; 93005; 99283; 99285-25

== ENCOUNTER 2016-11-30 00:45 | Emergency (ER) | payer MEDICARE, OTHER ==
--- NOTE | 2016-11-30 00:58 | EDM.PDOC ---
ED HPI GENERAL MEDICAL PROBLEM - General Chief Complaint: General Stated Complaint: WEAKNESS Time Seen by Provider: 11/30/16 00:52 - History of Present Illness INITIAL COMMENTS - FREE TEXT/NARRATIVE: HISTORY AND PHYSICAL: History of present illness: Patient 76-year-old white female sensory concern of weakness she is well-known to our emergency department is been here multiple times for right of conditions she denies chest pain source of breath nausea vomiting palpitations fever chills or other concern. Review of systems: As per history of present illness and below otherwise all systems reviewed and negative. Past medical history: As per history of present illness and as reviewed below otherwise noncontributory. Surgical history: As per history of present illness and as reviewed below otherwise noncontributory. Social history: No reported history of drug or alcohol abuse. Family history: As per history of present illness and as reviewed below otherwise noncontributory. Physical exam: HEENT: Atraumatic, normocephalic, pupils reactive, negative for conjunctival pallor or scleral icterus, mucous membranes moist, throat clear, neck supple, nontender, trachea midline. Lungs: Clear to auscultation, breath sounds equal bilaterally, chest nontender. Heart: S1S2, regular, negative for clicks, rubs, or JVD. Abdomen: Soft, nondistended, nontender. Negative for masses or hepatosplenomegaly. Negative for costovertebral tenderness. Pelvis: Stable nontender. Genitourinary: Deferred. Rectal: Deferred. Extremities: Atraumatic, negative for cords or calf pain. Neurovascular unremarkable. Neuro: Awake, alert, oriented. Cranial nerves II through XII unremarkable. Cerebellum unremarkable. Motor and sensory unremarkable throughout. Exam nonfocal. Diagnostics: CBC CMP PT/INR chest x-ray EKG troponin UA Therapeutics: None Impression: #1 medical screening exam Definitive disposition and diagnosis as appropriate pending reevaluation and review of above. - Related Data Allergies Allergy/AdvReac Type Severity Reaction Status Date / Time codeine Allergy Dizziness Verified 11/30/16 00:57 Home Meds: Home Meds traZODone 200 mg PO BEDTIME 04/11/15 [History] Aspirin 325 mg PO DAILY 05/06/16 [History] Meclizine HCl [Travel Sickness] 25 mg PO ASDIRECTED 05/06/16 [History] Metoprolol Succinate [Toprol XL] 25 mg PO DAILY #30 tab.er 05/07/16 [Rx] Past Medical History HEENT History: Reports: Hard of Hearing Cardiovascular History: Reports: None, Hypertension, SOB on Exertion Respiratory History: Reports: COPD Gastrointestinal History: Reports: Cholelithiasis Genitourinary History: Reports: None [employer] History: Reports: None Musculoskeletal History: Reports: Fibromyalgia Neurological History: Reports: None Psychiatric History: Reports: Anxiety Endocrine/Metabolic History: Reports: None Hematologic History: Reports: None Immunologic History: Reports: None Oncologic (Cancer) History: Reports: None Dermatologic History: Reports: None - Infectious Disease History Infectious Disease History: Reports: Chicken Pox, Measles Other Infectious Disease History: childhood - Past Surgical History Head Surgeries/Procedures: Reports: None Respiratory Surgical History: Reports: None GI Surgical History: Reports: Cholecystectomy Other GI Surgeries/Procedures: Stomach staple Social & Family History - Family History Family Medical History: Noncontributory HEENT: Reports: None Cardiac: Reports: [place] Respiratory: Reports: None GI: Reports: None : Reports: None OBGYN: Reports: None Musculoskeletal: Reports: None Neurological: Reports: None Psychiatric: Reports: None Endocrine/Metabolic: Reports: None Hematologic: Reports: None Immunologic: Reports: None Dermatologic: Reports: None Oncologic: Reports: None - Tobacco Use Smoking Status *Q: Never Smoker Second Hand Smoke Exposure: No - Caffeine Use Caffeine Use: Reports: Coffee, Soda Other Caffeine Use: 2 cups/day Caffeine Use Comment: 2 drinks/day - Recreational Drug Use Recreational Drug Use: No - Living Situation & Occupation Living situation: Reports: Occupation: Retired ED ROS GENERAL - Review of Systems Review Of Systems: ROS reveals no pertinent complaints other than HPI. ED EXAM, GENERAL - Physical Exam Exam: See Below (See dictation) Departure - Departure Time of Disposition: 00:58 Disposition: Home, Self-Care 01 Condition: Good Clinical Impression: Encounter for medical screening examination - Discharge Information Additional Instructions: The following information is given to patients seen in the emergency department who are being discharged to home. This information is to outline your options for follow-up care. We provide all patients seen in our emergency department with a follow-up referral. The need for follow-up, as well as the timing and circumstances, are variable depending upon the specifics of your emergency department visit. If you don't have a primary care physician on staff, we will provide you with a referral. We always advise you to contact your personal physician following an emergency department visit to inform them of the circumstance of the visit and for follow-up with them and/or the need for any referrals to a consulting specialist. The emergency department will also refer you to a specialist when appropriate. This referral assures that you have the opportunity for followup care with a specialist. All of these measure are taken in an effort to provide you with optimal care, which includes your followup. Under all circumstances we always encourage you to contact your private physician who remains a resource for coordinating your care. When calling for followup care, please make the office aware that this follow-up is from your recent emergency room visit. If for any reason you are refused follow-up, please contact the [facility] emergency department at and asked to speak to the emergency department charge nurse. Follow-up primary medical doctor 1-2 days return as needed as discussed
[2016-11-30 01:29] LABS: CHLORIDE,CL 109 mmol/L (98-110); SODIUM,NA 142 mmol/L (136-146)
[2016-11-30 01:43] VITALS: BP 152/60
--- NOTE | 2016-11-30 16:08 | CR ---
EXAM DATE: 11/30/16 PATIENT'S AGE: 76 Patient: KATIE DICKENS Facility: [place], [place] Site . Site : 1940 Study: XRay Chest [id number]/6/2017 1:37:51 AM Ordering Physician: Stefany Meeks Final Report: INDICATION: CARDIAC WORKUP TECHNIQUE: Chest 1 view. Evaluation degraded by motion artifact COMPARISON: November 19, 2016 FINDINGS: Cardiovascular and mediastinum: Heart size and vasculature are normal in caliber and appearance. Mediastinum is within normal limits. Lungs and pleural space: No gross evidence for focal consolidation. No sign of pleural effusion. No pneumothorax. Bones and soft tissues: No significant findings. IMPRESSION: No gross evidence for acute cardiopulmonary disease. Dictated by Brando Virk MD @ 11/30/2016 1:47:00 AM Dictated by: Brando Virk MD @ 11/30/2016 01:47:13 (Electronic Signature) Report Signed by Proxy. ST[facility] UNIVERSITY HOSPITALStalin
== END 2016-11-30 01:57 | disposition home or self-care (01) ==
LOC: MW.ED 00:45
DX: Z00.00 Encounter for general adult medical examination without abnormal findings (principal); I10 Essential (primary) hypertension; J44.9 Chronic obstructive pulmonary disease, unspecified; F41.9 Anxiety disorder, unspecified; Z90.49 Acquired absence of other specified parts of digestive tract; Z79.82 Long term (current) use of aspirin; Z79.899 Other long term (current) drug therapy; Z88.5 Allergy status to narcotic agent
CPT/HCPCS: 36415; 71010; 71010-26; 80053; 84484; 85025; 85610; 93005; 99282; 99285-25

== ENCOUNTER 2017-01-08 10:38 | Emergency (ER) | payer MEDICARE, OTHER ==
[2017-01-08] MEDS ORDERED: Ondansetron 4 MG/2 ML SDV IVPUSH ONE (10:45)
[2017-01-08] MEDS ORDERED: Sodium Chloride 0.9% 1,000 ML IV ONE (10:45)
--- NOTE | 2017-01-08 10:50 | EDM.PDOC ---
ED HPI GENERAL MEDICAL PROBLEM - General Stated Complaint: AMBULANCE Time Seen by Provider: 01/08/17 10:41 Source of Information: Reports: Patient History Limitations: Reports: No Limitations - History of Present Illness INITIAL COMMENTS - FREE TEXT/NARRATIVE: HISTORY AND PHYSICAL: History of present illness: Patient is a 76-year-old female who presents to the emergency room via EMS with complaints of a potential overdose. There is concerned that she over took her usual dose of trazodone. Usually she'll take 200 mg of trazodone every night. Her brother believes that she may have taken 600 mg last night, by counting the number of tablets left in her bottle. Patient reports that she went to bed around 9 PM and took her usual dose of 200 mg of trazodone, denying that she over took any of her pills. This morning her brother came to the house and found her still in bed and states she was difficult to arouse. He had to assist her to the recliner. He then proceeded to call EMS. Upon arrival patient is alert and oriented but drowsy. Patient's only complaint at this time is that she is slightly nauseated. She denies any abdominal pain, vomiting, diarrhea. Patient denies using any drugs, alcohol, or taking any other prescription medications this morning. Patient denies any chest pain, shortness of breath, visual changes, fever or chills. Denies any recent injury, falls or trauma. Patient is able to follow commands. Review of systems: As per history of present illness and below otherwise all systems reviewed and negative. Past medical history: As per history of present illness and as reviewed below otherwise noncontributory. Surgical history: As per history of present illness and as reviewed below otherwise noncontributory. Social history: No reported history of drug or alcohol abuse. Family history: As per history of present illness and as reviewed below otherwise noncontributory. Physical exam: Gen.: Well-developed and well-nourished 76-year-old female. Able to speak in full sentences without shortness of breath. Alert and oriented. HEENT: Atraumatic, normocephalic, pupils reactive, negative for conjunctival pallor or scleral icterus, mucous membranes moist, throat clear, neck supple, nontender, trachea midline. Lungs: Clear to auscultation, breath sounds equal bilaterally, chest nontender. Heart: S1S2, regular rate and rhythm without any overt murmurs Abdomen: Soft, obese, nondistended, nontender. Negative for masses or hepatosplenomegaly. Negative for costovertebral tenderness. Pelvis: Stable nontender. Genitourinary: Deferred. Rectal: Deferred. Extremities: Atraumatic, moves all per self, negative for cords or calf pain. Neurovascular unremarkable. Neuro: Awake, alert, oriented. Cranial nerves II through XII unremarkable. Cerebellum unremarkable. Motor and sensory unremarkable throughout. Exam nonfocal. Poison control was contacted. They state that the pain things to watch out for his hypotension and bradycardia but believe that since this medication was taken around 9 PM last night that she is past the peak of efficacy. Vital signs continued to be stable. Patient is alert and oriented and states she is ready to go home. Still waiting on the head CT and urinalysis results. Head CT shows no intracranial bleed, masses or acute findings. Chest x-ray does not demonstrate any form of pneumonia. These results along with labs were discussed with the patient and her brother. Patient still reports that she did not take any additional trazodone. Brother voices concern that he will not be able to get her up to walk at home. Nursing staff was able to get patient up out of bed with minimal assistance. She was ambulatory to the restroom. Brother also states that he is looking into getting her placed in a jail. Dr. Menchaca and family are arranging this. Diagnostics: CBC, CMP, troponin, EKG, urinalysis, drug screen, salicylate, acetaminophen, head CT Therapeutics: IV fluid and Zofran Impression: Suspected unintentional overdose Plan: 1. Please take your medications as they are prescribed. Do not take any additional medication or double up on your medications. If you need any adjustments to your medications please follow-up with your primary care provider Dr. Menchaca 2. Follow-up with your primary care provider in the next 1-2 days. Return to the ED as needed as discussed. Definitive disposition and diagnosis as appropriate pending reevaluation and review of above. Onset: Today - Related Data Allergies Allergy/AdvReac Type Severity Reaction Status Date / Time codeine Allergy Dizziness Verified 01/08/17 10:47 Home Meds: Home Meds traZODone 200 mg PO BEDTIME 04/11/15 [History] Metoprolol Succinate [Toprol XL] 25 mg PO DAILY #30 tab.er 05/07/16 [Rx] Past Medical History HEENT History: Reports: Hard of Hearing Cardiovascular History: Reports: None, Hypertension, SOB on Exertion Respiratory History: Reports: COPD Gastrointestinal History: Reports: Cholelithiasis Genitourinary History: Reports: None GRAVE CLEANER History: Reports: None Musculoskeletal History: Reports: Fibromyalgia Neurological History: Reports: None Psychiatric History: Reports: Anxiety Endocrine/Metabolic History: Reports: None Hematologic History: Reports: None Immunologic History: Reports: None Oncologic (Cancer) History: Reports: None Dermatologic History: Reports: None - Infectious Disease History Infectious Disease History: Reports: Chicken Pox, Measles Other Infectious Disease History: childhood - Past Surgical History Head Surgeries/Procedures: Reports: None Respiratory Surgical History: Reports: None GI Surgical History: Reports: Cholecystectomy Other GI Surgeries/Procedures: Stomach staple Social & Family History - Family History Family Medical History: Noncontributory HEENT: Reports: None Cardiac: Reports: [place] Respiratory: Reports: None GI: Reports: None : Reports: None OBGYN: Reports: None Musculoskeletal: Reports: None Neurological: Reports: None Psychiatric: Reports: None Endocrine/Metabolic: Reports: None Hematologic: Reports: None Immunologic: Reports: None Dermatologic: Reports: None Oncologic: Reports: None - Tobacco Use Smoking Status *Q: Never Smoker Second Hand Smoke Exposure: No - Caffeine Use Caffeine Use: Reports: Coffee, Soda Other Caffeine Use: 2 cups/day Caffeine Use Comment: 2 drinks/day - Recreational Drug Use Recreational Drug Use: No - Living Situation & Occupation Living situation: Reports: Occupation: Retired ED ROS GENERAL - Review of Systems Review Of Systems: ROS reveals no pertinent complaints other than HPI. ED EXAM, GENERAL - Physical Exam Exam: See Below (See dictation) EKG INTERPRETATION EKG Date: 01/08/17 Time: 10:47 Rhythm: NSR EKG Interpretation Comments: Was reviewed by me and Dr. Conn Course - Vital Signs Last Recorded V/S: Last Vital Signs Temp 36.4 C 01/08/17 10:41 Pulse 81 01/08/17 11:15 Resp 16 01/08/17 10:41 BP 146/80 H 01/08/17 11:15 Pulse Ox 93 L 01/08/17 10:41 - Orders/Labs/Meds Orders: Active Orders 24 hr Category Date Time Status EKG Documentation Completion [RC] STAT Care 01/08/17 10:44 Active Chest 2V [CR] Stat Exams 01/08/17 11:41 Taken Head wo Cont [CT] Stat Exams 01/08/17 10:44 Taken Labs: Laboratory Tests 01/08/17 01/08/17 01/08/17 Range/Units 10:56 10:56 10:56 WBC 13.29 H (4.0-11.0) K/uL RBC 4.57 (4.30-5.90) M/uL Hgb 13.0 (12.0-16.0) g/dL Hct 38.9 (36.0-46.0) % MCV 85.1 (80.0-98.0) fL MCH 28.4 (27.0-32.0) pg MCHC 33.4 (31.0-37.0) g/dL RDW Std Deviation 52.3 (28.0-62.0) fl RDW Coeff of Britni 17 H (11.0-15.0) % Plt Count 226 (150-400) K/uL MPV 10.10 (7.40-12.00) fL Neut % (Auto) 85.1 H (48.0-80.0) % Lymph % (Auto) 4.3 L (16.0-40.0) % [place] % (Auto) 10.6 (0.0-15.0) % Eos % (Auto) 0.0 (0.0-7.0) % Baso % (Auto) 0.0 (0.0-1.5) % Neut # (Auto) 11.3 H (1.4-5.7) K/uL Lymph # (Auto) 0.6 (0.6-2.4) K/uL [place] # (Auto) 1.4 H (0.0-0.8) K/uL Eos # (Auto) 0.0 (0.0-0.7) K/uL Baso # (Auto) 0.0 (0.0-0.1) K/uL Nucleated RBC % 0.0 /100WBC Nucleated RBCs # 0 K/uL Sodium 140 (136-146) mmol/L Potassium 3.8 (3.5-5.1) mmol/L Chloride 108 (98-110) mmol/L Carbon Dioxide 21 (21-31) mmol/L BUN 28 H (6.0-23.0) mg/dL Creatinine 0.9 (0.6-1.5) mg/dL Est Cr Clr Drug Dosing 54.48 mL/min Estimated GFR (MDRD) > 60.0 ml/min Glucose 116 H (60-110) mg/dL Calcium 9.0 (8.8-10.8) mg/dL Total Bilirubin 1.3 (0.1-1.5) mg/dL AST 12 (5-40) IU/L ALT 10 (8-54) IU/L Alkaline Phosphatase 135 (40-150) Troponin I < 0.10 (0.0-0.29) NG/ML Total Protein 6.9 (6.0-8.0) g/dL Albumin 3.4 (3.4-4.8) g/dL Globulin 3.5 (2.0-3.5) g/dL Albumin/Globulin Ratio 1.0 L (1.3-2.8) Urine Color Urine Appearance Urine pH (5.0-8.0) Ur Specific [place] (1.001-1.035) Urine Protein (NEGATIVE) mg/dL Urine Glucose (UA) (NEGATIVE) mg/dL Urine Ketones (NEGATIVE) mg/dL Urine Occult Blood (NEGATIVE) Urine Nitrite (NEGATIVE) Urine Bilirubin (NEGATIVE) Urine Urobilinogen (<2.0) EU/dL Ur Leukocyte Esterase (NEGATIVE) Urine RBC (0-2/HPF) Urine WBC (0-5/HPF) Ur Epithelial Cells (NONE-FEW) Amorphous Sediment (NEGATIVE) Urine Bacteria (NEGATIVE) Urine Mucus (NONE-MOD) Salicylates < 5.0 (0-20) mg/dL Urine Opiates Screen (NEGATIVE) Ur Oxycodone Screen (NEGATIVE) Urine Methadone Screen (NEGATIVE) Acetaminophen < 3.0 ug/mL Ur Barbiturates Screen (NEGATIVE) Ur Phencyclidine Scrn (NEGATIVE) Ur Amphetamine Screen (NEGATIVE) U Methamphetamines Scrn (NEGATIVE) U Benzodiazepines Scrn (NEGATIVE) U Cocaine Metab Screen (NEGATIVE) U Marijuana (THC) Screen (NEGATIVE) Ethyl Alcohol < 10.0 mg/dL 01/08/17 01/08/17 Range/Units 12:35 12:35 WBC (4.0-11.0) K/uL RBC (4.30-5.90) M/uL Hgb (12.0-16.0) g/dL Hct (36.0-46.0) % MCV (80.0-98.0) fL MCH (27.0-32.0) pg MCHC (31.0-37.0) g/dL RDW Std Deviation (28.0-62.0) fl RDW Coeff of Britni (11.0-15.0) % Plt Count (150-400) K/uL MPV (7.40-12.00) fL Neut % (Auto) (48.0-80.0) % Lymph % (Auto) (16.0-40.0) % [place] % (Auto) (0.0-15.0) % Eos % (Auto) (0.0-7.0) % Baso % (Auto) (0.0-1.5) % Neut # (Auto) (1.4-5.7) K/uL Lymph # (Auto) (0.6-2.4) K/uL [place] # (Auto) (0.0-0.8) K/uL Eos # (Auto) (0.0-0.7) K/uL Baso # (Auto) (0.0-0.1) K/uL Nucleated RBC % /100WBC Nucleated RBCs # K/uL Sodium (136-146) mmol/L Potassium (3.5-5.1) mmol/L Chloride (98-110) mmol/L Carbon Dioxide (21-31) mmol/L BUN (6.0-23.0) mg/dL Creatinine (0.6-1.5) mg/dL Est Cr Clr Drug Dosing mL/min Estimated GFR (MDRD) ml/min Glucose (60-110) mg/dL Calcium (8.8-10.8) mg/dL Total Bilirubin (0.1-1.5) mg/dL AST (5-40) IU/L ALT (8-54) IU/L Alkaline Phosphatase (40-150) Troponin I (0.0-0.29) NG/ML Total Protein (6.0-8.0) g/dL Albumin (3.4-4.8) g/dL Globulin (2.0-3.5) g/dL Albumin/Globulin Ratio (1.3-2.8) Urine Color YELLOW Urine Appearance CLEAR Urine pH 6.0 (5.0-8.0) Ur Specific [place] 1.025 (1.001-1.035) Urine Protein TRACE (NEGATIVE) mg/dL Urine Glucose (UA) NEGATIVE (NEGATIVE) mg/dL Urine Ketones 15 H (NEGATIVE) mg/dL Urine Occult Blood MODERATE (NEGATIVE) Urine Nitrite NEGATIVE (NEGATIVE) Urine Bilirubin NEGATIVE (NEGATIVE) Urine Urobilinogen 4.0 H (<2.0) EU/dL Ur Leukocyte Esterase NEGATIVE (NEGATIVE) Urine RBC 5-10 (0-2/HPF) Urine WBC 2-4 (0-5/HPF) Ur Epithelial Cells FEW (NONE-FEW) Amorphous Sediment LIGHT (NEGATIVE) Urine Bacteria NOT SEEN (NEGATIVE) Urine Mucus HEAVY (NONE-MOD) Salicylates (0-20) mg/dL Urine Opiates Screen NEGATIVE (NEGATIVE) Ur Oxycodone Screen NEGATIVE (NEGATIVE) Urine Methadone Screen NEGATIVE (NEGATIVE) Acetaminophen ug/mL Ur Barbiturates Screen NEGATIVE (NEGATIVE) Ur Phencyclidine Scrn NEGATIVE (NEGATIVE) Ur Amphetamine Screen NEGATIVE (NEGATIVE) U Methamphetamines Scrn NEGATIVE (NEGATIVE) U Benzodiazepines Scrn NEGATIVE (NEGATIVE) U Cocaine Metab Screen NEGATIVE (NEGATIVE) U Marijuana (THC) Screen NEGATIVE (NEGATIVE) Ethyl Alcohol mg/dL Meds: Medications Discontinued Medications Generic Name Dose Route Start Last Admin Trade Name Freq PRN Reason Stop Dose Admin Sodium Chloride 1,000 mls @ 999 mls/hr 01/08/17 10:45 01/08/17 11:28 Normal Saline IV 01/08/17 11:45 999 mls/hr STAT ONE Administration Ondansetron HCl 4 mg 01/08/17 10:45 01/08/17 11:28 Zofran IVPUSH 01/08/17 10:46 4 mg ONETIME ONE Administration Departure - Departure Time of Disposition: 13:31 Disposition: Home, Self-Care 01 Clinical Impression: Worried well - Discharge Information Instructions: Medical Screening Exam Referrals: PCP,None [Primary Care Provider] - Forms: ED Department Discharge Additional Instructions: My general discharge The following information is given to patients seen in the emergency department who are being discharged to home. This information is to outline your options for follow-up care. We provide all patients seen in our emergency department with a follow-up referral. The need for follow-up, as well as the timing and circumstances, are variable depending upon the specifics of your emergency department visit. If you don't have a primary care physician on staff, we will provide you with a referral. We always advise you to contact your personal physician following an emergency department visit to inform them of the circumstance of the visit and for follow-up with them and/or the need for any referrals to a consulting specialist. The emergency department will also refer you to a specialist when appropriate. This referral assures that you have the opportunity for follow-up care with a specialist. All of these measure are taken in an effort to provide you with optimal care, which includes your follow-up. Under all circumstances we always encourage you to contact your private physician who remains a resource for coordinating your care. When calling for follow-up care, please make the office aware that this follow-up is from your recent emergency room visit. If for any reason you are refused follow-up, please contact the [facility] Emergency Department at and asked to speak to the emergency department charge nurse. [facility] Primary [facility] [address] [place] [address] 1. Please take your medications as they are prescribed. Do not take any additional medication or double up on your medications. If you need any adjustments to your medications please follow-up with your primary care provider Dr. Menchaca 2. Follow-up with your primary care provider in the next 1-2 days. Return to the ED as needed as discussed. - My Orders Last 24 Hours: My Active Orders 01/08/17 10:44 EKG Documentation Completion [RC] STAT Head wo Cont [CT] Stat 01/08/17 11:41 Chest 2V [CR] Stat - Assessment/Plan Last 24 Hours: My Active Orders 01/08/17 10:44 EKG Documentation Completion [RC] STAT Head wo Cont [CT] Stat 01/08/17 11:41 Chest 2V [CR] Stat
[2017-01-08 11:32] LABS: ACETAMINOPHEN < 3.0 ug/mL; CHLORIDE,CL 108 mmol/L (98-110); SODIUM,NA 140 mmol/L (136-146)
[2017-01-08 15:19] VITALS: BP 137/58
--- NOTE | 2017-01-09 13:32 | CT ---
EXAM DATE: 01/08/17 PATIENT'S AGE: 76 Patient: KATIE DICKENS Facility: [place], [place] Site . Site : 1940 Study: CT Head [id number]/15/2017 12:04:24 PM Ordering Physician: Doctor Silveira Final Report: INDICATION: Altered mental status. Drug overdose. Technique: CT head without IV contrast. Comparison: CT head 07/22/2016. Findings: Small polyp or retention cyst right maxillary sinus. Polyp or retention cyst with mucosal nodularity left maxillary sinus. Left maxillary sinus is somewhat small in size. Focal CSF density abnormality adjacent to the left frontal lobe with tiny calcifications associated with it is unchanged as described previously. Mild cerebral and cerebellar atrophy. Patchy small vessel ischemic disease stable. No intracranial hemorrhage, edema, or mass effect. Postsurgical changes right eye. Remainder negative. Impression: Stable head CT without acute intracranial disease. Findings as above. Mild inflammatory changes in the paranasal sinuses stable. Please note that all CT scans at this facility use dose modulation, iterative reconstruction, and/or weight-based dosing when appropriate to reduce radiation dose to as low as reasonably achievable. Dictated by Pasquale Pepper MD @ Jan 08 2017 12:45PM (Electronic Signature) Report Signed by Proxy. ANDREW
--- NOTE | 2017-01-09 13:33 | CR ---
EXAM DATE: 01/08/17 PATIENT'S AGE: 76 Patient: KATIE DICKENS Facility: [place], [place] Site . Site : 1940 Study: XRay Chest [id number]/15/2017 12:13:37 PM Ordering Physician: Doctor Silveira Final Report: INDICATION: Pain. Shortness of breath. Technique: PA and lateral chest x-ray. Comparison: Chest x-ray 11/30/2016. Findings: Age-indeterminate left-sided rib fractures stable. Heart size within normal limits. Minimal platelike atelectasis or scarring in the left lung base. Moderate anterior wedging or compression of a lower thoracic vertebral body. Osteopenia. Mild pulmonary venous congestion, slightly more prominent. Chest otherwise unremarkable. Dictated by Pasquale Pepper MD @ Jan 08 2017 1:10PM (Electronic Signature) Report Signed by Proxy. ANDREW
== END 2017-01-08 13:40 | disposition home or self-care (01) ==
LOC: MW.ED 10:38
DX: Z71.1 Person with feared health complaint in whom no diagnosis is made (principal); I10 Essential (primary) hypertension; J44.9 Chronic obstructive pulmonary disease, unspecified; F41.9 Anxiety disorder, unspecified; Z90.49 Acquired absence of other specified parts of digestive tract; Z79.899 Other long term (current) drug therapy; Z88.5 Allergy status to narcotic agent
CPT/HCPCS: 36415; 70450; 71020; 80053; 80305; 81001; 84484; 85025; 93005; 96361; 96374; 99285; G0480; J2405; J7040

== ENCOUNTER 2017-01-08 20:11 | Inpatient (IN) | payer MEDICARE, OTHER ==
--- NOTE | 2017-01-08 20:29 | EDM.PDOC ---
ED HPI GENERAL MEDICAL PROBLEM - General Chief Complaint: General Stated Complaint: UNK Time Seen by Provider: 01/08/17 20:16 Source of Information: Reports: Patient History Limitations: Reports: No Limitations - History of Present Illness INITIAL COMMENTS - FREE TEXT/NARRATIVE: HISTORY AND PHYSICAL: History of present illness: Patient is a 76-year-old female who presents to the emergency room with her brother with complaints of weakness. Patient was here earlier this morning with complaints of possible overdose on her trazodone. The brothers was concerned she may had taken 600 mg of trazodone last night and proceeded to bring her to the emergency room this morning, the brother states that he did not really feel that she overtook her trazodone but was hoping that we would keep her due to her weakness. A workup was done and there was no reason for admission at that time. The patient herself stated she wanted to go home and was ambulatory in the room with staff at bedside. She was discharged to home with her brother. The brother states he was able to get her in the house. States he has found her twice on the floor. "I just want to get her to [place]... I can't take care of her at home." The patient is unable to state whether or not she was on the floor or if she had any falls. Patient states she has some pain in the left upper trapezius muscle. Denies hitting her head or any loss of consciousness. I am not fully convinced on her accuracy with events of today. Review of systems: As per history of present illness and below otherwise all systems reviewed and negative. Past medical history: As per history of present illness and as reviewed below otherwise noncontributory. Surgical history: As per history of present illness and as reviewed below otherwise noncontributory. Social history: No reported history of drug or alcohol abuse. Family history: As per history of present illness and as reviewed below otherwise noncontributory. Physical exam: General: Well developed and well nourished 76 year old female. Breathes easy. Talks in full sentences without shortness of breath. Alert and orientated HEENT: Atraumatic, normocephalic, pupils reactive, negative for conjunctival pallor or scleral icterus, mucous membranes moist, throat clear, neck supple, nontender, trachea midline. Lungs: Clear to auscultation, breath sounds equal bilaterally, chest nontender. Heart: S1S2, regular rate and rhythm Abdomen: Soft, obese,nondistended, nontender. Negative for masses. Negative for costovertebral tenderness. Pelvis: Stable nontender. Genitourinary: Deferred. Rectal: Deferred. C-Spine/Back: Palpated without tenderness, crepitus, obvious deformity or step- offs. Denies any numbness or tingling to the lower or upper extremities. Extremities: Atraumatic, negative for cords or calf pain. Neurovascular unremarkable. Neuro: Awake, alert, oriented. Cranial nerves II through XII unremarkable. Cerebellum unremarkable. Motor and sensory unremarkable throughout. Exam nonfocal. No changes in labs or CT results. The results were discussed with the patient and brother. Dr. queen was consulted on this case and is agreeable to admit as observation. During her stay the perinatal social worker can discuss with family the next steps to take for jail placement. Patient voices understanding, agreeable to plan of care, and denies any further questions. Diagnostics: CBC, CMP, CT head and cervical spine Therapeutics: [] Impression: Self care deficit Weakness Plan: Admit to observation status on [facility] Definitive disposition and diagnosis as appropriate pending reevaluation and review of above. Headache Pain Score (Numeric/FACES): 3 - Related Data Allergies Allergy/AdvReac Type Severity Reaction Status Date / Time codeine Allergy Dizziness Verified 01/08/17 20:20 Home Meds: Home Meds traZODone 200 mg PO BEDTIME 04/11/15 [History] Metoprolol Succinate [Toprol XL] 25 mg PO DAILY #30 tab.er 05/07/16 [Rx] Past Medical History HEENT History: Reports: Hard of Hearing Cardiovascular History: Reports: None, Hypertension, SOB on Exertion Respiratory History: Reports: COPD Gastrointestinal History: Reports: Cholelithiasis Genitourinary History: Reports: None HOSPITAL ACCOUNT LIAISON History: Reports: None Musculoskeletal History: Reports: Fibromyalgia Neurological History: Reports: None Psychiatric History: Reports: Anxiety Endocrine/Metabolic History: Reports: None Hematologic History: Reports: None Immunologic History: Reports: None Oncologic (Cancer) History: Reports: None Dermatologic History: Reports: None - Infectious Disease History Infectious Disease History: Reports: Chicken Pox, Measles Other Infectious Disease History: childhood - Past Surgical History Head Surgeries/Procedures: Reports: None Respiratory Surgical History: Reports: None GI Surgical History: Reports: Cholecystectomy Other GI Surgeries/Procedures: Stomach staple Social & Family History - Family History Family Medical History: Noncontributory HEENT: Reports: None Cardiac: Reports: [place] Respiratory: Reports: None GI: Reports: None : Reports: None OBGYN: Reports: None Musculoskeletal: Reports: None Neurological: Reports: None Psychiatric: Reports: None Endocrine/Metabolic: Reports: None Hematologic: Reports: None Immunologic: Reports: None Dermatologic: Reports: None Oncologic: Reports: None - Tobacco Use Smoking Status *Q: Never Smoker Second Hand Smoke Exposure: No - Caffeine Use Caffeine Use: Reports: Coffee, Soda Other Caffeine Use: 2 cups/day Caffeine Use Comment: 2 drinks/day - Recreational Drug Use Recreational Drug Use: No - Living Situation & Occupation Living situation: Reports: Occupation: Retired ED ROS GENERAL - Review of Systems Review Of Systems: ROS reveals no pertinent complaints other than HPI. ED EXAM, GENERAL - Physical Exam Exam: See Below (See dictation) Course - Vital Signs Last Recorded V/S: Last Vital Signs Temp 36.4 C 01/08/17 20:18 Pulse 75 01/08/17 21:54 Resp 16 01/08/17 21:54 BP 172/52 H 01/08/17 21:54 Pulse Ox 96 01/08/17 21:54 - Orders/Labs/Meds Orders: Active Orders 24 hr Category Date Time Status Cervical Spine wo Cont [CT] Stat Exams 01/08/17 20:19 Taken Head wo Cont [CT] Stat Exams 01/08/17 20:19 Taken Labs: Laboratory Tests 01/08/17 01/08/17 Range/Units 20:58 20:58 WBC 18.01 H (4.0-11.0) K/uL RBC 4.33 (4.30-5.90) M/uL Hgb 12.3 (12.0-16.0) g/dL Hct 37.1 (36.0-46.0) % MCV 85.7 (80.0-98.0) fL MCH 28.4 (27.0-32.0) pg MCHC 33.2 (31.0-37.0) g/dL RDW Std Deviation 53.1 (28.0-62.0) fl RDW Coeff of Britni 17 H (11.0-15.0) % Plt Count 229 (150-400) K/uL MPV 10.10 (7.40-12.00) fL Neut % (Auto) 84.4 H (48.0-80.0) % Lymph % (Auto) 6.3 L (16.0-40.0) % [place] % (Auto) 9.1 (0.0-15.0) % Eos % (Auto) 0.1 (0.0-7.0) % Baso % (Auto) 0.1 (0.0-1.5) % Neut # (Auto) 15.2 H (1.4-5.7) K/uL Lymph # (Auto) 1.1 (0.6-2.4) K/uL [place] # (Auto) 1.6 H (0.0-0.8) K/uL Eos # (Auto) 0.0 (0.0-0.7) K/uL Baso # (Auto) 0.0 (0.0-0.1) K/uL Nucleated RBC % 0.0 /100WBC Nucleated RBCs # 0 K/uL Sodium 138 (136-146) mmol/L Potassium 4.0 (3.5-5.1) mmol/L Chloride 108 (98-110) mmol/L Carbon Dioxide 21 (21-31) mmol/L BUN 28 H (6.0-23.0) mg/dL Creatinine 0.9 (0.6-1.5) mg/dL Est Cr Clr Drug Dosing TNP Estimated GFR (MDRD) > 60.0 ml/min Glucose 121 H (60-110) mg/dL Calcium 8.8 (8.8-10.8) mg/dL Total Bilirubin 1.9 H (0.1-1.5) mg/dL AST 12 (5-40) IU/L ALT 10 (8-54) IU/L Alkaline Phosphatase 123 (40-150) Total Protein 6.8 (6.0-8.0) g/dL Albumin 3.3 L (3.4-4.8) g/dL Globulin 3.5 (2.0-3.5) g/dL Albumin/Globulin Ratio 0.9 L (1.3-2.8) Departure - Departure Time of Disposition: 22:03 Disposition: Refer to Observation Clinical Impression: Weakness - Discharge Information - My Orders Last 24 Hours: My Active Orders 01/08/17 20:19 Cervical Spine wo Cont [CT] Stat Head wo Cont [CT] Stat - Assessment/Plan Last 24 Hours: My Active Orders 01/08/17 20:19 Cervical Spine wo Cont [CT] Stat Head wo Cont [CT] Stat
[2017-01-08 21:38] LABS: CHLORIDE,CL 108 mmol/L (98-110); SODIUM,NA 138 mmol/L (136-146)
[2017-01-08] MEDS ORDERED: Sodium Chloride 0.9% 10 ML Syringe FLUSH PRN (22:34)
[2017-01-08] MEDS ORDERED: Sodium Chloride 0.9% 2.5 ML Syringe FLUSH PRN (22:34)
[2017-01-08] MEDS ORDERED: cefTRIAXone 1,000 MG in Sodium Chloride 0.9% 50 ML IV SCH (22:45)
--- NOTE | 2017-01-08 22:58 | PCM.HP ---
H&P History of Present Illness - General Date of Service: 01/08/17 Admit Problem/Dx: Admission Diagnosis/Problem Admission Diagnosis/Problem Pneumonia Source of Information: Patient, Old Records, Provider History Limitations: Reports: Other (failing memory) - History of Present Illness Initial Comments - Free Text/Narative: This 76-year-old female was brought to the emergency room this morning by her brother because of her having fallen on the floor. She was evaluated for weakness and no specific cause was found. The patient did not have a history of fever or cough or chest pain or abdominal pain or pain with urination. The brother was told that no specific medical condition was found and he took her home. Later this evening, the brother brought the patient back to the emergency room having stated that she is too weak to take care of herself at home and he refused to take her home. The patient was given another round of blood testing. He was not initially communicated to me she had an elevated white blood cell count this time and it was thought that the admission should just be an observation admission for weakness. However with the elevation of her white blood cell count and review of her chest x-ray, possible right lung pneumonia is appreciated. She is admitted for treatment of her right lung pneumonia, and for further evaluation of the weakness that she has. The patient is not dyspneic nor is she hypoxic. She does not complain of leg pain pelvis pain, pain chest pain shortness of breath wheezing or coughing. Onset of Symptoms: Reports: Today Location: Reports: Generalized Improves with: Reports: None Context: Denies: Sick Contact Associated Symptoms: Reports: Confusion, Loss of Appetite, Weakness. Denies: Cough, Diaphoresis, Fever/Chills, Nausea/Vomiting, Shortness of Breath, Syncope Headache Pain Score (Numeric/FACES): 3 - Related Data Allergies/Adverse Reactions: Allergies Allergy/AdvReac Type Severity Reaction Status Date / Time codeine Allergy Dizziness Verified 01/08/17 20:20 Home Medications: Home Meds traZODone 200 mg PO BEDTIME 04/11/15 [History] Metoprolol Succinate [Toprol XL] 25 mg PO DAILY #30 tab.er 05/07/16 [Rx] Past Medical History HEENT History: Reports: Hard of Hearing Cardiovascular History: Reports: None, Hypertension, SOB on Exertion Respiratory History: Reports: COPD Gastrointestinal History: Reports: Cholelithiasis Genitourinary History: Reports: None [place] History: Reports: None Musculoskeletal History: Reports: Fibromyalgia Neurological History: Reports: None Psychiatric History: Reports: Anxiety Endocrine/Metabolic History: Reports: None Hematologic History: Reports: None Immunologic History: Reports: None Oncologic (Cancer) History: Reports: None Dermatologic History: Reports: None - Infectious Disease History Infectious Disease History: Reports: Chicken Pox, Measles Other Infectious Disease History: childhood - Past Surgical History Head Surgeries/Procedures: Reports: None Respiratory Surgical History: Reports: None GI Surgical History: Reports: Cholecystectomy Other GI Surgeries/Procedures: Stomach staple Social & Family History - Family History Family Medical History: Noncontributory HEENT: Reports: None Cardiac: Reports: [place] Respiratory: Reports: None GI: Reports: None : Reports: None OBGYN: Reports: None Musculoskeletal: Reports: None Neurological: Reports: None Psychiatric: Reports: None Endocrine/Metabolic: Reports: None Hematologic: Reports: None Immunologic: Reports: None Dermatologic: Reports: None Oncologic: Reports: None - Tobacco Use Smoking Status *Q: Never Smoker Second Hand Smoke Exposure: No - Caffeine Use Caffeine Use: Reports: Coffee, Soda Other Caffeine Use: 2 cups/day Caffeine Use Comment: 2 drinks/day - Recreational Drug Use Recreational Drug Use: No - Living Situation & Occupation Living situation: Reports: Occupation: Retired H&P Review of Systems - Review of Systems: Review Of Systems: See Below General: Reports: No Symptoms HEENT: Reports: No Symptoms Pulmonary: Denies: Shortness of Breath, Wheezing, Pleuritic Chest Pain, Cough Cardiovascular: Reports: No Symptoms Gastrointestinal: Reports: Decreased Appetite. Denies: Abdominal Pain, Constipation, Diarrhea, Nausea, Vomiting Genitourinary: Reports: Other (Rash in groin folds). Denies: Dysuria, Frequency Musculoskeletal: Reports: Back Pain Skin: Reports: Rash Psychiatric: Reports: Confusion Neurological: Reports: Confusion, Difficulty Walking, Weakness. Denies: Numbness, Paresthesia, Tremors, Trouble Speaking Hematologic/Lymphatic: Denies: Anemia, Easy Bleeding, Easy Bruising Exam - Exam Exam: See Below - Vital Signs Vital Signs: Last Vital Signs Temp 36.4 C 01/08/17 20:18 Pulse 75 01/08/17 21:54 Resp 16 01/08/17 21:54 BP 172/52 H 01/08/17 21:54 Pulse Ox 96 01/08/17 21:54 - Exam General: Alert. No: Oriented HEENT: Conjunctiva Clear, EACs Clear, EOMI, Hearing Intact, Mucosa Moist & [place] , Normal Nasal Septum, Posterior Pharynx Clear, Pupils Equal, Pupils Reactive Neck: Supple, Trachea Midline Lungs: Clear to Auscultation, Normal Respiratory Effort Cardiovascular: Regular Rate, Regular Rhythm. No: Systolic Murmur GI/Abdominal Exam: Soft, Non-Tender, No Organomegaly, No Distention, No Mass (Female) Exam: Other (External genitals are red along with groin skin folds) Back Exam: Normal Inspection. No: CVA Tenderness (L), CVA Tenderness (R) Extremities: Normal Inspection, Normal Range of Motion, Non-Tender, Normal Capillary Refill. No: No Pedal Edema, Leg Pain Peripheral Pulses: 2+: Posterior Tibial (L), Posterior Tibial (R) Skin: Warm, Rash (Red skin-intertrigo of groin and external genitals) Neurological: Cranial Nerves Intact, Reflexes Equal Bilateral, Normal Speech, Sensation Intact Neuro Extensive - Mental Status: Alert, Normal Mood/Affect. No: Normal Cognition, Memory Intact Neuro Extensive - Motor, Sensory, Reflexes: CN II-XII Intact, Normal Gait Psychiatric: Alert, Normal Affect, Normal Mood - Patient Data Result Diagrams: 01/08/17 20:58 01/08/17 20:58 *Q Meaningful Use (ADM) - VTE *Q VTE Criteria *Q: - Stroke *Q Stroke Criteria *Q: - AMI *Q AMI Criteria *Q: - Problem List (1) Community acquired pneumonia SNOMED Code(s): 271865752 ICD Code: J18.9 - PNEUMONIA, UNSPECIFIED ORGANISM Status: Acute Current Visit: Yes (2) Fall SNOMED Code(s): 0611607 ICD Code: W19.XXXA - UNSPECIFIED FALL, INITIAL ENCOUNTER Status: Acute Current Visit: No Qualifiers: Encounter type: initial encounter Qualified Code(s): W19.XXXA - Unspecified fall, initial encounter (3) Weakness SNOMED Code(s): 09404291 ICD Code: R53.1 - WEAKNESS Status: Acute Current Visit: Yes (4) Candidiasis, intertrigo SNOMED Code(s): 618580346 ICD Code: B37.2 - CANDIDIASIS OF SKIN AND NAIL Status: Acute Current Visit: Yes Problem List Initiated/Reviewed/Updated: Yes Orders Last 24hrs: Active Orders 24 hr Category Date Time Status Patient Status [ADT] Routine ADT 01/08/17 22:45 Ordered Bedrest Bedside Commode [RC] ASDIRECTED Care 01/08/17 22:42 Ordered Vital Signs [RC] Q4H Care 01/08/17 21:50 Active Consult to Physical Therapy [PT Evaluation and Cons 01/08/17 22:44 Ordered Treatment] [CONS] Routine 2 Gram Sodium Diet [DIET] Diet 01/09/17 Breakfast Ordered BASIC METABOLIC PANEL,BMP [CHEM] Routine Lab 01/08/17 22:33 Ordered CBC WITH AUTO DIFF [HEME] AM Lab 01/09/17 05:11 Ordered TSH [CHEM] Routine Lab 01/09/17 05:10 Ordered VITAMIN B12 [CHEM] Routine Lab 01/09/17 05:10 Ordered Azithromycin [Zithromax] 500 mg Med 01/08/17 22:45 Ordered Sodium Chloride 0.9% [Normal Saline] 250 ml IV Q24H Nystatin [Nystatin Crm] Med 01/09/17 09:00 Ordered 4 gm TOP BID Sodium Chloride 0.9% [Saline Flush] Med 01/08/17 22:34 Ordered 10 ml FLUSH ASDIRECTED PRN Sodium Chloride 0.9% [Saline Flush] Med 01/08/17 22:34 Ordered 2.5 ml FLUSH ASDIRECTED PRN cefTRIAXone [Rocephin] 1,000 mg Med 01/08/17 22:45 Ordered Sodium Chloride 0.9% [Normal Saline] 50 ml IV Q24H Saline Lock Insert [OM.PC] Routine Oth 01/08/17 22:34 Ordered Code Status [Resuscitation Status] Routine Resus Stat 01/08/17 22:41 Ordered Medication Orders Azithromycin 500 mg/ Sodium (Chloride) 250 mls @ 250 mls/hr IV Q24H LISA Stop: 01/10/17 23:59 Ceftriaxone Sodium 1,000 mg/ (Sodium Chloride) 50 mls @ 200 mls/hr IV Q24H LISA Sodium Chloride (Saline Flush) 10 ml FLUSH ASDIRECTED PRN PRN Reason: Keep Vein Open Sodium Chloride (Saline Flush) 2.5 ml FLUSH ASDIRECTED PRN PRN Reason: Keep Vein Open Assessment/Plan Comment:: Blood cultures IV antibiotics Nystatin to skin folds Blood for B12 and thyroid Physical therapy
[2017-01-08] MEDS ORDERED: Azithromycin 500 MG in Sodium Chloride 0.9% 250 ML IV SCH (23:00)
[2017-01-08] MEDS: cefTRIAXone 1 GM in Premix Bag 1 BAG IV SCH (23:34)
[2017-01-08] MEDS: traMADol 50 MG Tab PO PRN (23:59)
[2017-01-09] MEDS ORDERED: FLU Vacc QS 2017-18 (36mos UP)/PF 60 MCG/0.5 ML Syringe IM ONE (00:15)
[2017-01-09] MEDS: Azithromycin 500 MG in Sodium Chloride 0.9% 250 ML IV SCH (00:18)
[2017-01-09 06:16] LABS: CHLORIDE,CL 108 mmol/L (98-110); SODIUM,NA 141 mmol/L (136-146)
[2017-01-09] MEDS: Acetaminophen 325 MG Tab PO PRN (09:23)
[2017-01-09] MEDS: Nystatin Crm 30 GM Tube TOP SCH ×2 (09:24→21:57)
--- NOTE | 2017-01-09 11:20 | PCM.PN ---
<Laura Amato M - Last Filed: 01/09/17 12:04> - General Info Date of Service: 01/09/17 Admission Dx/Problem (Free Text): Admission Diagnosis/Problem Admission Diagnosis/Problem Pneumonia Subjective Update: Sitting up in chair eating breakfast. Reports she still feels generally weak. Denies pain or SOB. Has congestion cough intermittently. Not completely oriented at times. Functional Status: Reports: Pain Controlled, Tolerating Diet, Ambulating, Urinating - Review of Systems General: Reports: No Symptoms. Denies: Fever Pulmonary: Reports: Cough. Denies: Shortness of Breath, Sputum Cardiovascular: Reports: Edema. Denies: Chest Pain, Palpitations Gastrointestinal: Reports: No Symptoms. Denies: Abdominal Pain, Nausea, Vomiting Genitourinary: Reports: No Symptoms. Denies: Dysuria, Frequency, Burning Neurological: Reports: No Symptoms Psychiatric: Reports: No Symptoms - Patient Data Vitals - Most Recent: Last Vital Signs Temp 98.1 F 01/09/17 08:00 Pulse 83 01/09/17 08:00 Resp 20 01/09/17 08:00 BP 122/55 L 01/09/17 08:00 Pulse Ox 94 L 01/09/17 08:00 Weight - Most Recent: 127.5 kg I&O - Last 24 Hours: Intake & Output 01/08/17 01/09/17 01/09/17 22:59 06:59 14:59 Intake Total 400 Balance 400 Lab Results Last 24 Hours: Laboratory Results - last 24 hr 01/09/17 01/09/17 01/09/17 Range/Units 05:15 05:15 05:15 WBC 16.20 H (4.0-11.0) K/uL RBC 4.13 L (4.30-5.90) M/uL Hgb 11.7 L (12.0-16.0) g/dL Hct 35.4 L (36.0-46.0) % MCV 85.7 (80.0-98.0) fL MCH 28.3 (27.0-32.0) pg MCHC 33.1 (31.0-37.0) g/dL RDW Std Deviation 50.8 (28.0-62.0) fl RDW Coeff of Britni 17 H (11.0-15.0) % Plt Count 210 (150-400) K/uL MPV 11.40 (7.40-12.00) fL Neut % (Auto) GUE[employer] EXPERIENCE CAPTAIN Lymph % (Auto) GUE[employer] EXPERIENCE CAPTAIN [place] % (Auto) GUEST EXPERIENCE CAPTAIN Eos % (Auto) GUEST EXPERIENCE CAPTAIN Baso % (Auto) GUEST EXPERIENCE CAPTAIN Neut # (Auto) GUEST EXPERIENCE CAPTAIN Lymph # (Auto) GUEST EXPERIENCE CAPTAIN [place] # (Auto) GUEST EXPERIENCE CAPTAIN Eos # (Auto) GUEST EXPERIENCE CAPTAIN Baso # (Auto) GUEST EXPERIENCE CAPTAIN Add Manual Diff YES Neutrophils % (Manual) 71 (48.0-80.0) % Band Neutrophils % 6 % Lymphocytes % (Manual) 15 L (16.0-40.0) % Monocytes % (Manual) 6 (0.0-15.0) % Eosinophils % (Manual) 2 (0.0-7.0) % Absolute Seg Neuts 11.5 H (1.4-5.7) Band Neutrophils # 1.0 Lymphocytes # (Manual) 2.4 (0.6-2.4) Monocytes # (Manual) 1.0 H (0.0-0.8) Eosinophils # (Manual) 0.3 (0.0-0.7) Sodium 141 (136-146) mmol/L Potassium 3.8 (3.5-5.1) mmol/L Chloride 108 (98-110) mmol/L Carbon Dioxide 23 (21-31) mmol/L BUN 24 H (6.0-23.0) mg/dL Creatinine 0.8 (0.6-1.5) mg/dL Est Cr Clr Drug Dosing 61.29 mL/min Estimated GFR (MDRD) > 60.0 ml/min Glucose 93 (60-110) mg/dL Calcium 8.6 L (8.8-10.8) mg/dL Vitamin B12 181 L (200-1100) PG/ML TSH 3rd Generation 0.81 (0.47-5.0) uIU/mL Med Orders - Current: Current Medications Acetaminophen (Tylenol) 650 mg PO Q6H PRN PRN Reason: Pain Last Admin: 01/09/17 09:23 Dose: 650 mg Azithromycin 500 mg/ Sodium (Chloride) 250 mls @ 250 mls/hr IV Q24H LISA Last Admin: 01/09/17 00:18 Dose: 250 mls/hr Ceftriaxone Sodium/Dextrose 1 (gm/ Premix) 50 mls @ 100 mls/hr IV Q24H LISA Last Admin: 01/08/17 23:34 Dose: 100 mls/hr Nystatin (Nystatin Crm) 0 gm TOP BID [facility] Last Admin: 01/09/17 09:24 Dose: 1 applic Sodium Chloride (Saline Flush) 10 ml FLUSH ASDIRECTED PRN PRN Reason: Keep Vein Open Sodium Chloride (Saline Flush) 2.5 ml FLUSH ASDIRECTED PRN PRN Reason: Keep Vein Open Tramadol HCl (Ultram) 50 mg PO Q6H PRN PRN Reason: Pain (moderate 4-6) Last Admin: 01/08/17 23:59 Dose: 50 mg Discontinued Medications Azithromycin 500 mg/ Sodium (Chloride) 250 mls @ 250 mls/hr IV Q24H [facility] Stop: 01/10/17 23:01 Last Admin: 01/09/17 00:38 Dose: Not Given Influenza Virus Vaccine (Fluarix Quad [id number]) 60 mcg IM .ONCE ONE Stop: 01/09/17 00:16 - Exam General: Alert, Cooperative, No Acute Distress. No: Oriented (to time or place) Neck: Supple Lungs: Normal Respiratory Effort, Decreased Breath Sounds (throughout) Cardiovascular: Regular Rate, Regular Rhythm, No Murmurs Back Exam: Normal Inspection, Full Range of Motion, Other (tenderness to low back, noted to have bruising and scrape to mid to low back from falling.) Extremities: Pedal Edema (+2 pitting edema to BLE) Neurological: No New Focal Deficit Psy/Mental Status: Alert, Normal Affect, Normal Mood - Problem List & Annotations (1) Community acquired pneumonia SNOMED Code(s): 553102588 Code(s): J18.9 - PNEUMONIA, UNSPECIFIED ORGANISM Status: Acute Current Visit: Yes QualifierTitle: Laterality: right Lung location: lower lobe of lung Qualified Code(s): J18.1 - Lobar pneumonia, unspecified organism (2) Candidiasis, intertrigo SNOMED Code(s): 982716790 Code(s): B37.2 - CANDIDIASIS OF SKIN AND NAIL Status: Acute Current Visit : Yes (3) Weakness SNOMED Code(s): 50604112 Code(s): R53.1 - WEAKNESS Status: Acute Current Visit: Yes (4) Contusion, back SNOMED Code(s): 78491270 Code(s): S20.229A - CONTUSION OF UNSPECIFIED BACK WALL OF THORAX, INIT ENCNTR Status: Acute Current Visit: No QualifierTitle: Encounter type: initial encounter Laterality: right Qualified Code(s): S20.221A - Contusion of right back wall of thorax, initial encounter (5) Fall SNOMED Code(s): 6927121 Code(s): W19.XXXA - UNSPECIFIED FALL, INITIAL ENCOUNTER Status: Acute Current Visit: No QualifierTitle: Encounter type: initial encounter Qualified Code(s): W19.XXXA - Unspecified fall, initial encounter - Problem List Review Problem List Initiated/Reviewed/Updated: Yes - Plan Plan:: This 76 year old female admitted with falls, generalized weakness and community acquired pneumonia 1. CAP: Continue with Azithromycin and Rocephin. Duonebs as needed. BC pending. Not requiring oxygen. 2. Falls/generalized weakness: Consult PT. Brother reports he is unable to care for her at home. [facility] placement is being set up. 3. HTN: Continue Metoprolol 4. Candidiasis: Nystatin to folds. VTE prophylaxis: Heparin q12hr Dispo: Pending placement and improvement. <Gus Elizalde - Last Filed: 01/09/17 21:28> - Patient Data Vitals - Most Recent: Last Vital Signs Temp 37.2 C 01/09/17 20:00 Pulse 94 01/09/17 20:00 Resp 17 01/09/17 20:00 BP 137/62 01/09/17 20:00 Pulse Ox 95 01/09/17 20:00 I&O - Last 24 Hours: Intake & Output 01/09/17 01/09/17 01/09/17 06:59 14:59 22:59 Intake Total 400 568 Output Total 425 Balance 400 143 Lab Results Last 24 Hours: Laboratory Results - last 24 hr 01/09/17 01/09/17 01/09/17 Range/Units 05:15 05:15 05:15 WBC 16.20 H (4.0-11.0) K/uL RBC 4.13 L (4.30-5.90) M/uL Hgb 11.7 L (12.0-16.0) g/dL Hct 35.4 L (36.0-46.0) % MCV 85.7 (80.0-98.0) fL MCH 28.3 (27.0-32.0) pg MCHC 33.1 (31.0-37.0) g/dL RDW Std Deviation 50.8 (28.0-62.0) fl RDW Coeff of Britni 17 H (11.0-15.0) % Plt Count 210 (150-400) K/uL MPV 11.40 (7.40-12.00) fL Neut % (Auto) [employer] EXPERIENCE CAPTAIN Lymph % (Auto) [employer]UE[employer] EXPERIENCE CAPTAIN [place] % (Auto) GUEST EXPERIENCE CAPTAIN Eos % (Auto) GUEST EXPERIENCE CAPTAIN Baso % (Auto) GUEST EXPERIENCE CAPTAIN Neut # (Auto) GUEST EXPERIENCE CAPTAIN Lymph # (Auto) GUEST EXPERIENCE CAPTAIN [place] # (Auto) GUEST EXPERIENCE CAPTAIN Eos # (Auto) GUEST EXPERIENCE CAPTAIN Baso # (Auto) GUEST EXPERIENCE CAPTAIN Add Manual Diff YES Neutrophils % (Manual) 71 (48.0-80.0) % Band Neutrophils % 6 % Lymphocytes % (Manual) 15 L (16.0-40.0) % Monocytes % (Manual) 6 (0.0-15.0) % Eosinophils % (Manual) 2 (0.0-7.0) % Absolute Seg Neuts 11.5 H (1.4-5.7) Band Neutrophils # 1.0 Lymphocytes # (Manual) 2.4 (0.6-2.4) Monocytes # (Manual) 1.0 H (0.0-0.8) Eosinophils # (Manual) 0.3 (0.0-0.7) Sodium 141 (136-146) mmol/L Potassium 3.8 (3.5-5.1) mmol/L Chloride 108 (98-110) mmol/L Carbon Dioxide 23 (21-31) mmol/L BUN 24 H (6.0-23.0) mg/dL Creatinine 0.8 (0.6-1.5) mg/dL Est Cr Clr Drug Dosing 61.29 mL/min Estimated GFR (MDRD) > 60.0 ml/min Glucose 93 (60-110) mg/dL Calcium 8.6 L (8.8-10.8) mg/dL Vitamin B12 181 L (200-1100) PG/ML TSH 3rd Generation 0.81 (0.47-5.0) uIU/mL Med Orders - Current: Current Medications Acetaminophen (Tylenol) 650 mg PO Q6H PRN PRN Reason: Pain Last Admin: 01/09/17 09:23 Dose: 650 mg Heparin Sodium (Porcine) (Heparin Sodium) 5,000 units SUBCUT Q12HR [facility] Last Admin: 01/09/17 13:00 Dose: 5,000 units Azithromycin 500 mg/ Sodium (Chloride) 250 mls @ 250 mls/hr IV Q24H [facility] Last Admin: 01/09/17 00:18 Dose: 250 mls/hr Ceftriaxone Sodium/Dextrose 1 (gm/ Premix) 50 mls @ 100 mls/hr IV Q24H [facility] Last Admin: 01/08/17 23:34 Dose: 100 mls/hr Metoprolol Succinate (Toprol Xl) 25 mg PO DAILY [facility] Last Admin: 01/09/17 13:00 Dose: 25 mg Nystatin (Nystatin Crm) 0 gm TOP BID [facility] Last Admin: 01/09/17 09:24 Dose: 1 applic Sodium Chloride (Saline Flush) 10 ml FLUSH ASDIRECTED PRN PRN Reason: Keep Vein Open Sodium Chloride (Saline Flush) 2.5 ml FLUSH ASDIRECTED PRN PRN Reason: Keep Vein Open Tramadol HCl (Ultram) 50 mg PO Q6H PRN PRN Reason: Pain (moderate 4-6) Last Admin: 01/08/17 23:59 Dose: 50 mg Trazodone HCl (Trazodone) 200 mg PO BEDTIME [facility] Discontinued Medications Azithromycin 500 mg/ Sodium (Chloride) 250 mls @ 250 mls/hr IV Q24H [facility] Stop: 01/10/17 23:01 Last Admin: 01/09/17 00:38 Dose: Not Given Influenza Virus Vaccine (Fluarix Quad [id number]) 60 mcg IM .ONCE ONE Stop: 01/09/17 00:16 - Problem List & Annotations (1) Community acquired pneumonia SNOMED Code(s): 149458648 Code(s): J18.9 - PNEUMONIA, UNSPECIFIED ORGANISM Status: Acute Current Visit: Yes Qualifiers: Laterality: right Lung location: lower lobe of lung Qualified Code(s): J18.1 - Lobar pneumonia, unspecified organism (2) Fall SNOMED Code(s): 6993756 Code(s): W19.XXXA - UNSPECIFIED FALL, INITIAL ENCOUNTER Status: Acute Current Visit: No Qualifiers: Encounter type: initial encounter Qualified Code(s): W19.XXXA - Unspecified fall, initial encounter (3) Weakness SNOMED Code(s): 06371062 Code(s): R53.1 - WEAKNESS Status: Acute Current Visit: Yes (4) Candidiasis, intertrigo SNOMED Code(s): 935450596 Code(s): B37.2 - CANDIDIASIS OF SKIN AND NAIL Status: Acute Current Visit : Yes - My Orders Last 24 Hours: My Active Orders 01/08/17 21:50 Vital Signs [RC] Q4H 01/08/17 22:34 Sodium Chloride 0.9% [Saline Flush] 10 ml FLUSH ASDIRECTED PRN Sodium Chloride 0.9% [Saline Flush] 2.5 ml FLUSH ASDIRECTED PRN Saline Lock Insert [OM.PC] Routine 01/08/17 22:41 Code Status [Resuscitation Status] Routine 01/08/17 22:42 Bedrest Bedside Commode [RC] ASDIRECTED 01/08/17 22:44 Consult to Physical Therapy [PT Evaluation and Treatment] [CONS] Routine 01/08/17 22:45 Patient Status [ADT] Routine 01/08/17 22:58 Blood Culture x2 Reflex Set [OM.PC] Stat 01/08/17 23:00 cefTRIAXone [Rocephin in Dextrose,Iso-Osm 1 GM/50 ML] 1 gm Premix Bag 1 bag IV Q24H 01/08/17 23:04 traMADol [Ultram] 50 mg PO Q6H PRN 01/08/17 23:06 Acetaminophen [Tylenol] 650 mg PO Q6H PRN 01/08/17 23:09 Antiembolic Devices [RC] Q12H Sequential Compression Device [OM.PC] Routine 01/08/17 23:12 CULTURE BLOOD [BC] Stat 01/08/17 23:19 CULTURE BLOOD [BC] Stat 01/09/17 00:00 Azithromycin [Zithromax] 500 mg Sodium Chloride 0.9% [Normal Saline] 250 ml IV Q24H 01/09/17 09:00 Nystatin [Nystatin Crm] 0 gm TOP BID 01/09/17 Breakfast 2 Gram Sodium Diet [DIET] - Free Text/Narrative Note: Dr. Elizalde writes: I have examined this patient and evaluated her data. I concur with Louias Amato LIFE TEACHER's note, assessments and plans. I have just discussed her eventual placement at [facility] with our community mental health social worker.
[2017-01-09] MEDS: Metoprolol Succinate 25 MG Tab.ER PO SCH (13:00)
[2017-01-09] MEDS: Heparin Sodium 5,000 Units/ML Vial SUBCUT SCH ×2 (13:00→21:56)
--- NOTE | 2017-01-09 14:07 | CT ---
EXAM DATE: 01/08/17 PATIENT'S AGE: 76 Patient: KATIE DICKENS Facility: [place], [place] : 1940 Study: CT Head [id number]/15/2017 8:55:19 PM Ordering Physician: ROSIE Final Report: Indication: Fall. Comparison: Same date at 11 a.m. and 22 July 2016. Technique: Noncontrast images foramen magnum to vertex. Findings: No change. No acute hemorrhage in the brain or extra-axial spaces. 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 Adjacent calcifications. Mild patchy low attenuation proper white matter. No new areas for acute infarct or ischemia. Calvarium is intact. Small mucous retention cysts in the maxillary sinuses with trace mucosal thickening on the left. Mastoids and middle ears are appropriately aerated. Impression: No acute intracranial finding. No findings no change for comparison. Please note that all CT scans at this facility use dose modulation, iterative reconstruction, and/or weight-based dosing when appropriate to reduce radiation dose to as low as reasonably achievable. Dictated by Mulugeta Quintanilla MD @ Jan 08 2017 8:56PM (Electronic Signature) Report Signed by Proxy. MTDD
--- NOTE | 2017-01-09 14:09 | CT ---
EXAM DATE: 01/08/17 PATIENT'S AGE: 76 Patient: KATIE DICKENS Facility: [place], [place] : 1940 Study: CT Spine Cervical [id number] 8:55:35 PM Ordering Physician: ROSIE Final Report: INDICATION: FALL TECHNIQUE: Helical non-contrast images of the cervical spine from skull base to thoracic inlet were obtained. Axial, coronal and sagittal thin section 2-D reformats are provided. FINDINGS: There is no acute fracture or malalignment. Prevertebral soft tissues are within normal limits. No significant degenerative change is present. 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 Visualized posterior fossa is unremarkable. Central canal is widely patent. IMPRESSION: No acute fracture or malalignment cervical spine. No acute findings. Dictated by: Mulugeta Quintanilla MD @ 01/08/2017 21:01:51 (Electronic Signature) Report Signed by Proxy. MTDStalin
[2017-01-09] MEDS: traZODone 50 MG Tab PO SCH (21:57)
[2017-01-09] MEDS: cefTRIAXone 1 GM in Premix Bag 1 BAG IV SCH (22:02)
[2017-01-10] MEDS: Azithromycin 500 MG in Sodium Chloride 0.9% 250 ML IV SCH (00:20)
[2017-01-10] MEDS: traMADol 50 MG Tab PO PRN ×2 (03:23→22:35)
[2017-01-10 06:07] LABS: CHLORIDE,CL 106 mmol/L (98-110); SODIUM,NA 138 mmol/L (136-146)
--- NOTE | 2017-01-10 07:54 | PCM.PN ---
<Laura Amato M - Last Filed: 01/10/17 14:05> - General Info Date of Service: 01/10/17 Admission Dx/Problem (Free Text): Admission Diagnosis/Problem Admission Diagnosis/Problem Pneumonia Subjective Update: Doing well this morning. No chest pain or SOB. She is feeling better and a little stronger. Sitting up in chair eating breakfast. Functional Status: Reports: Pain Controlled, Tolerating Diet, Ambulating, Urinating - Review of Systems General: Reports: No Symptoms. Denies: Fever, Weakness, Fatigue Pulmonary: Reports: No Symptoms. Denies: Shortness of Breath, Cough Cardiovascular: Reports: No Symptoms. Denies: Chest Pain, Dyspnea on Exertion Gastrointestinal: Reports: No Symptoms, Flatus. Denies: Abdominal Pain, Nausea , Vomiting Genitourinary: Reports: No Symptoms. Denies: Dysuria, Frequency, Burning Psychiatric: Reports: No Symptoms. Denies: Confusion - Patient Data Vitals - Most Recent: Last Vital Signs Temp 98.6 F 01/10/17 04:00 Pulse 99 01/10/17 04:00 Resp 16 01/10/17 04:00 BP 134/65 01/10/17 04:00 Pulse Ox 94 L 01/10/17 04:00 Weight - Most Recent: 127.5 kg I&O - Last 24 Hours: Intake & Output 01/09/17 01/10/17 01/10/17 22:59 06:59 14:59 Intake Total 618 580 Output Total 425 275 Balance 193 305 Lab Results Last 24 Hours: Laboratory Results - last 24 hr 01/10/17 01/10/17 Range/Units 05:17 05:17 WBC 10.74 (4.0-11.0) K/uL RBC 3.99 L (4.30-5.90) M/uL Hgb 11.2 L (12.0-16.0) g/dL Hct 34.3 L (36.0-46.0) % MCV 86.0 (80.0-98.0) fL MCH 28.1 (27.0-32.0) pg MCHC 32.7 (31.0-37.0) g/dL RDW Std Deviation 53.5 (28.0-62.0) fl RDW Coeff of Britni 17 H (11.0-15.0) % Plt Count 228 (150-400) K/uL MPV 10.60 (7.40-12.00) fL Neut % (Auto) 72.1 (48.0-80.0) % Lymph % (Auto) 14.6 L (16.0-40.0) % [place] % (Auto) 11.8 (0.0-15.0) % Eos % (Auto) 1.4 (0.0-7.0) % Baso % (Auto) 0.1 (0.0-1.5) % Neut # (Auto) 7.7 H (1.4-5.7) K/uL Lymph # (Auto) 1.6 (0.6-2.4) K/uL [place] # (Auto) 1.3 H (0.0-0.8) K/uL Eos # (Auto) 0.2 (0.0-0.7) K/uL Baso # (Auto) 0.0 (0.0-0.1) K/uL Nucleated RBC % 0.0 /100WBC Nucleated RBCs # 0 K/uL Sodium 138 (136-146) mmol/L Potassium 3.4 L (3.5-5.1) mmol/L Chloride 106 (98-110) mmol/L Carbon Dioxide 23 (21-31) mmol/L BUN 19 (6.0-23.0) mg/dL Creatinine 0.8 (0.6-1.5) mg/dL Est Cr Clr Drug Dosing 61.29 mL/min Estimated GFR (MDRD) > 60.0 ml/min Glucose 93 (60-110) mg/dL Calcium 8.3 L (8.8-10.8) mg/dL Total Bilirubin 0.9 (0.1-1.5) mg/dL AST 10 (5-40) IU/L ALT 9 (8-54) IU/L Alkaline Phosphatase 109 (40-150) Total Protein 6.0 (6.0-8.0) g/dL Albumin 3.2 L (3.4-4.8) g/dL Globulin 2.8 (2.0-3.5) g/dL Albumin/Globulin Ratio 1.1 L (1.3-2.8) Yovanny Results Last 24 Hours: Microbiology 01/08/17 23:19 Aerobic Blood Culture - Preliminary Blood - Venous - Lab Draw NO GROWTH AFTER 1 DAY Anaerobic Blood Culture - Preliminary NO GROWTH AFTER 1 DAY 01/08/17 23:12 Aerobic Blood Culture - Preliminary Blood - Venous NO GROWTH AFTER 1 DAY Anaerobic Blood Culture - Preliminary NO GROWTH AFTER 1 DAY Med Orders - Current: Current Medications Acetaminophen (Tylenol) 650 mg PO Q6H PRN PRN Reason: Pain Last Admin: 01/09/17 09:23 Dose: 650 mg Heparin Sodium (Porcine) (Heparin Sodium) 5,000 units SUBCUT Q12HR [facility] Last Admin: 01/09/17 21:56 Dose: 5,000 units Azithromycin 500 mg/ Sodium (Chloride) 250 mls @ 250 mls/hr IV Q24H [facility] Last Admin: 01/10/17 00:20 Dose: 250 mls/hr Ceftriaxone Sodium/Dextrose 1 (gm/ Premix) 50 mls @ 100 mls/hr IV Q24H [facility] Last Admin: 01/09/17 22:02 Dose: 100 mls/hr Metoprolol Succinate (Toprol Xl) 25 mg PO DAILY [facility] Last Admin: 01/09/17 13:00 Dose: 25 mg Nystatin (Nystatin Crm) 0 gm TOP BID [facility] Last Admin: 01/09/17 21:57 Dose: 1 applic Sodium Chloride (Saline Flush) 10 ml FLUSH ASDIRECTED PRN PRN Reason: Keep Vein Open Sodium Chloride (Saline Flush) 2.5 ml FLUSH ASDIRECTED PRN PRN Reason: Keep Vein Open Tramadol HCl (Ultram) 50 mg PO Q6H PRN PRN Reason: Pain (moderate 4-6) Last Admin: 01/10/17 03:23 Dose: 50 mg Trazodone HCl (Trazodone) 200 mg PO BEDTIME [facility] Last Admin: 01/09/17 21:57 Dose: 200 mg Discontinued Medications Azithromycin 500 mg/ Sodium (Chloride) 250 mls @ 250 mls/hr IV Q24H [facility] Stop: 01/10/17 23:01 Last Admin: 01/09/17 00:38 Dose: Not Given Influenza Virus Vaccine (Fluarix Quad [id number]) 60 mcg IM .ONCE ONE Stop: 01/09/17 00:16 - Exam Quality Assessment: DVT Prophylaxis. No: Supplemental Oxygen General: Alert, Oriented, Cooperative Lungs: Clear to Auscultation, Normal Respiratory Effort Cardiovascular: Regular Rate, Regular Rhythm GI/Abdominal Exam: Normal Bowel Sounds, Soft, Non-Tender, No Organomegaly, No Distention, No Abnormal Bruit, No Mass, Pelvis Stable Extremities: Pedal Edema (+2 pitting edema bilateral lower extremities) Neurological: No New Focal Deficit Psy/Mental Status: Alert, Normal Affect, Normal Mood - Problem List & Annotations (1) Community acquired pneumonia SNOMED Code(s): 056770061 Code(s): J18.9 - PNEUMONIA, UNSPECIFIED ORGANISM Status: Acute Current Visit: Yes QualifierTitle: Laterality: right Lung location: lower lobe of lung Qualified Code(s): J18.1 - Lobar pneumonia, unspecified organism (2) Candidiasis, intertrigo SNOMED Code(s): 377916556 Code(s): B37.2 - CANDIDIASIS OF SKIN AND NAIL Status: Acute Current Visit : Yes (3) Weakness SNOMED Code(s): 45095082 Code(s): R53.1 - WEAKNESS Status: Acute Current Visit: Yes (4) Contusion, back SNOMED Code(s): 50820216 Code(s): S20.229A - CONTUSION OF UNSPECIFIED BACK WALL OF THORAX, INIT ENCNTR Status: Acute Current Visit: No QualifierTitle: Encounter type: initial encounter Laterality: right Qualified Code(s): S20.221A - Contusion of right back wall of thorax, initial encounter (5) Fall SNOMED Code(s): 0129665 Code(s): W19.XXXA - UNSPECIFIED FALL, INITIAL ENCOUNTER Status: Acute Current Visit: No QualifierTitle: Encounter type: initial encounter Qualified Code(s): W19.XXXA - Unspecified fall, initial encounter - Problem List Review Problem List Initiated/Reviewed/Updated: Yes - My Orders Last 24 Hours: My Active Orders 01/09/17 12:15 Heparin Sodium 5,000 units SUBCUT Q12HR Metoprolol Succinate [Toprol XL] 25 mg PO DAILY 01/09/17 21:00 traZODone 200 mg PO BEDTIME 01/11/17 05:00 CBC WITH AUTO DIFF [HEME] DAILY COMPREHENSIVE METABOLIC PN,CMP [CHEM] DAILY - Plan Plan:: This 76 year old female admitted with falls, generalized weakness and community acquired pneumonia 1. CAP: Improvnig, leukocytosis resolved. Continue with Azithromycin and Rocephin. Duonebs as needed. BC negative x 1 day. Not requiring oxygen. 2. Falls/generalized weakness: Consult PT. Doing better, [facility] placement for short term rehabilitation. 3. HTN: Continue Metoprolol 4. Candidiasis: Nystatin to folds. VTE prophylaxis: Heparin q12hr Dispo: Pending placement and improvement, likely discharge in am. <TonioGus - Last Filed: 01/10/17 15:43> - Patient Data Vitals - Most Recent: Last Vital Signs Temp 36.6 C 01/10/17 12:00 Pulse 75 01/10/17 12:00 Resp 16 01/10/17 12:00 BP 138/63 01/10/17 12:00 Pulse Ox 93 L 01/10/17 12:00 I&O - Last 24 Hours: Intake & Output 01/10/17 01/10/17 01/10/17 06:59 14:59 22:59 Intake Total 580 Output Total 275 Balance 305 Lab Results Last 24 Hours: Laboratory Results - last 24 hr 01/10/17 01/10/17 Range/Units 05:17 05:17 WBC 10.74 (4.0-11.0) K/uL RBC 3.99 L (4.30-5.90) M/uL Hgb 11.2 L (12.0-16.0) g/dL Hct 34.3 L (36.0-46.0) % MCV 86.0 (80.0-98.0) fL MCH 28.1 (27.0-32.0) pg MCHC 32.7 (31.0-37.0) g/dL RDW Std Deviation 53.5 (28.0-62.0) fl RDW Coeff of Britni 17 H (11.0-15.0) % Plt Count 228 (150-400) K/uL MPV 10.60 (7.40-12.00) fL Neut % (Auto) 72.1 (48.0-80.0) % Lymph % (Auto) 14.6 L (16.0-40.0) % [place] % (Auto) 11.8 (0.0-15.0) % Eos % (Auto) 1.4 (0.0-7.0) % Baso % (Auto) 0.1 (0.0-1.5) % Neut # (Auto) 7.7 H (1.4-5.7) K/uL Lymph # (Auto) 1.6 (0.6-2.4) K/uL [place] # (Auto) 1.3 H (0.0-0.8) K/uL Eos # (Auto) 0.2 (0.0-0.7) K/uL Baso # (Auto) 0.0 (0.0-0.1) K/uL Nucleated RBC % 0.0 /100WBC Nucleated RBCs # 0 K/uL Sodium 138 (136-146) mmol/L Potassium 3.4 L (3.5-5.1) mmol/L Chloride 106 (98-110) mmol/L Carbon Dioxide 23 (21-31) mmol/L BUN 19 (6.0-23.0) mg/dL Creatinine 0.8 (0.6-1.5) mg/dL Est Cr Clr Drug Dosing 61.29 mL/min Estimated GFR (MDRD) > 60.0 ml/min Glucose 93 (60-110) mg/dL Calcium 8.3 L (8.8-10.8) mg/dL Total Bilirubin 0.9 (0.1-1.5) mg/dL AST 10 (5-40) IU/L ALT 9 (8-54) IU/L Alkaline Phosphatase 109 (40-150) Total Protein 6.0 (6.0-8.0) g/dL Albumin 3.2 L (3.4-4.8) g/dL Globulin 2.8 (2.0-3.5) g/dL Albumin/Globulin Ratio 1.1 L (1.3-2.8) Yovanny Results Last 24 Hours: Microbiology 01/08/17 23:19 Aerobic Blood Culture - Preliminary Blood - Venous - Lab Draw NO GROWTH AFTER 1 DAY Anaerobic Blood Culture - Preliminary NO GROWTH AFTER 1 DAY 01/08/17 23:12 Aerobic Blood Culture - Preliminary Blood - Venous NO GROWTH AFTER 1 DAY Anaerobic Blood Culture - Preliminary NO GROWTH AFTER 1 DAY Med Orders - Current: Current Medications Acetaminophen (Tylenol) 650 mg PO Q6H PRN PRN Reason: Pain Last Admin: 01/10/17 08:18 Dose: 650 mg Heparin Sodium (Porcine) (Heparin Sodium) 5,000 units SUBCUT Q12HR [facility] Last Admin: 10/17/17 08:20 Dose: 5,000 units Azithromycin 500 mg/ Sodium (Chloride) 250 mls @ 250 mls/hr IV Q24H [facility] Last Admin: 01/10/17 00:20 Dose: 250 mls/hr Ceftriaxone Sodium/Dextrose 1 (gm/ Premix) 50 mls @ 100 mls/hr IV Q24H [facility] Last Admin: 01/09/17 22:02 Dose: 100 mls/hr Metoprolol Succinate (Toprol Xl) 25 mg PO DAILY [facility] Last Admin: 01/10/17 08:19 Dose: 25 mg Nystatin (Nystatin Crm) 0 gm TOP BID [facility] Last Admin: 01/10/17 08:19 Dose: 1 applic Sodium Chloride (Saline Flush) 10 ml FLUSH ASDIRECTED PRN PRN Reason: Keep Vein Open Sodium Chloride (Saline Flush) 2.5 ml FLUSH ASDIRECTED PRN PRN Reason: Keep Vein Open Tramadol HCl (Ultram) 50 mg PO Q6H PRN PRN Reason: Pain (moderate 4-6) Last Admin: 01/10/17 03:23 Dose: 50 mg Trazodone HCl (Trazodone) 200 mg PO BEDTIME [facility] Last Admin: 01/09/17 21:57 Dose: 200 mg Discontinued Medications Azithromycin 500 mg/ Sodium (Chloride) 250 mls @ 250 mls/hr IV Q24H [facility] Stop: 01/10/17 23:01 Last Admin: 01/09/17 00:38 Dose: Not Given Influenza Virus Vaccine (Fluarix Quad [id number]) 60 mcg IM .ONCE ONE Stop: 01/09/17 00:16 Potassium Chloride (Klor-Con M20) 40 meq PO ONETIME ONE Stop: 01/10/17 07:56 Last Admin: 01/10/17 08:19 Dose: 40 meq - Problem List & Annotations (1) Community acquired pneumonia SNOMED Code(s): 569089409 Code(s): J18.9 - PNEUMONIA, UNSPECIFIED ORGANISM Status: Acute Current Visit: Yes Qualifiers: Laterality: right Lung location: lower lobe of lung Qualified Code(s): J18.1 - Lobar pneumonia, unspecified organism (2) Fall SNOMED Code(s): 9639474 Code(s): W19.XXXA - UNSPECIFIED FALL, INITIAL ENCOUNTER Status: Acute Current Visit: No Qualifiers: Encounter type: initial encounter Qualified Code(s): W19.XXXA - Unspecified fall, initial encounter (3) Weakness SNOMED Code(s): 88484669 Code(s): R53.1 - WEAKNESS Status: Acute Current Visit: Yes (4) Candidiasis, intertrigo SNOMED Code(s): 033723989 Code(s): B37.2 - CANDIDIASIS OF SKIN AND NAIL Status: Acute Current Visit : Yes - Free Text/Narrative Note: I have examined this patient today and have reviewed her data and care with Louisa Amato CAN TECHNICIAN. She is not keen on being admitted to [facility] but because of her frequent falls at home, she needs additional strengthening and getting PT done at [facility] still remains the best plan, give her uneven memory performance. I agree with Ms. Amato's note and plan.
[2017-01-10] MEDS ORDERED: Potassium Chloride 20 MEQ Tab.ER PO ONE (07:55)
[2017-01-10] MEDS: Acetaminophen 325 MG Tab PO PRN (08:18)
[2017-01-10] MEDS: Nystatin Crm 30 GM Tube TOP SCH ×2 (08:19→21:55)
[2017-01-10] MEDS: Metoprolol Succinate 25 MG Tab.ER PO SCH (08:19)
[2017-01-10] MEDS: Heparin Sodium 5,000 Units/ML Vial SUBCUT SCH ×2 (08:20→22:04)
[2017-01-10] MEDS: traZODone 50 MG Tab PO SCH (21:50)
[2017-01-10] MEDS: cefTRIAXone 1 GM in Premix Bag 1 BAG IV SCH (22:06)
[2017-01-11] MEDS: Azithromycin 500 MG in Sodium Chloride 0.9% 250 ML IV SCH ×2 (00:20→23:22)
[2017-01-11 06:09] LABS: CHLORIDE,CL 108 mmol/L (98-110); SODIUM,NA 142 mmol/L (136-146)
[2017-01-11] MEDS: Acetaminophen 325 MG Tab PO PRN (09:34)
[2017-01-11] MEDS: Nystatin Crm 30 GM Tube TOP SCH ×2 (09:35→20:16)
[2017-01-11] MEDS: Metoprolol Succinate 25 MG Tab.ER PO SCH (09:36)
[2017-01-11] MEDS: Heparin Sodium 5,000 Units/ML Vial SUBCUT SCH ×2 (09:38→20:14)
--- NOTE | 2017-01-11 09:47 | PCM.PN ---
- General Info Date of Service: 01/11/17 Admission Dx/Problem (Free Text): Admission Diagnosis/Problem Admission Diagnosis/Problem Pneumonia Subjective Update: Patient doing well this morning sitting up in the chair eating breakfast. Slightly SOB noted. Patient denies chest pain. Did reports some palpitations. Functional Status: Reports: Pain Controlled, Tolerating Diet, Ambulating - Review of Systems General: Reports: No Symptoms. Denies: Fever, Weakness, Fatigue HEENT: Reports: No Symptoms Pulmonary: Reports: Shortness of Breath. Denies: Cough, Sputum Cardiovascular: Reports: Palpitations. Denies: Chest Pain, Lightheadedness Gastrointestinal: Reports: No Symptoms. Denies: Abdominal Pain, Nausea, Vomiting Genitourinary: Reports: No Symptoms. Denies: Dysuria, Frequency, Burning Neurological: Reports: No Symptoms Psychiatric: Reports: No Symptoms - Patient Data Vitals - Most Recent: Last Vital Signs Temp 98.4 F 01/11/17 04:00 Pulse 85 01/11/17 04:00 Resp 14 01/11/17 04:00 BP 141/56 H 01/11/17 04:00 Pulse Ox 93 L 01/11/17 04:00 Weight - Most Recent: 127.5 kg I&O - Last 24 Hours: Intake & Output 01/10/17 01/11/17 01/11/17 22:59 06:59 14:59 Intake Total 470 600 Output Total 350 600 Balance 120 0 Lab Results Last 24 Hours: Laboratory Results - last 24 hr 01/11/17 01/11/17 Range/Units 04:45 04:45 WBC 5.61 (4.0-11.0) K/uL RBC 3.81 L (4.30-5.90) M/uL Hgb 10.6 L (12.0-16.0) g/dL Hct 33.2 L (36.0-46.0) % MCV 87.1 (80.0-98.0) fL MCH 27.8 (27.0-32.0) pg MCHC 31.9 (31.0-37.0) g/dL RDW Std Deviation 54.5 (28.0-62.0) fl RDW Coeff of Britni 17 H (11.0-15.0) % Plt Count 234 (150-400) K/uL MPV 10.60 (7.40-12.00) fL Neut % (Auto) 56.9 (48.0-80.0) % Lymph % (Auto) 28.3 (16.0-40.0) % [place] % (Auto) 11.9 (0.0-15.0) % Eos % (Auto) 2.7 (0.0-7.0) % Baso % (Auto) 0.2 (0.0-1.5) % Neut # (Auto) 3.2 (1.4-5.7) K/uL Lymph # (Auto) 1.6 (0.6-2.4) K/uL [place] # (Auto) 0.7 (0.0-0.8) K/uL Eos # (Auto) 0.2 (0.0-0.7) K/uL Baso # (Auto) 0.0 (0.0-0.1) K/uL Nucleated RBC % 0.0 /100WBC Nucleated RBCs # 0 K/uL Sodium 142 (136-146) mmol/L Potassium 3.9 (3.5-5.1) mmol/L Chloride 108 (98-110) mmol/L Carbon Dioxide 27 (21-31) mmol/L BUN 15 (6.0-23.0) mg/dL Creatinine 0.7 (0.6-1.5) mg/dL Est Cr Clr Drug Dosing 70.05 mL/min Estimated GFR (MDRD) > 60.0 ml/min Glucose 87 (60-110) mg/dL Calcium 8.4 L (8.8-10.8) mg/dL Total Bilirubin 0.7 (0.1-1.5) mg/dL AST 8 (5-40) IU/L ALT 7 L (8-54) IU/L Alkaline Phosphatase 101 (40-150) Total Protein 5.5 L (6.0-8.0) g/dL Albumin 2.9 L (3.4-4.8) g/dL Globulin 2.6 (2.0-3.5) g/dL Albumin/Globulin Ratio 1.1 L (1.3-2.8) Yovanny Results Last 24 Hours: Microbiology 01/08/17 23:19 Aerobic Blood Culture - Preliminary Blood - Venous - Lab Draw NO GROWTH AFTER 2 DAYS Anaerobic Blood Culture - Preliminary NO GROWTH AFTER 2 DAYS 01/08/17 23:12 Aerobic Blood Culture - Preliminary Blood - Venous NO GROWTH AFTER 2 DAYS Anaerobic Blood Culture - Preliminary NO GROWTH AFTER 2 DAYS Med Orders - Current: Current Medications Acetaminophen (Tylenol) 650 mg PO Q6H PRN PRN Reason: Pain Last Admin: 01/11/17 09:34 Dose: 650 mg Heparin Sodium (Porcine) (Heparin Sodium) 5,000 units SUBCUT Q12HR [facility] Last Admin: 01/10/17 22:04 Dose: 5,000 units Azithromycin 500 mg/ Sodium (Chloride) 250 mls @ 250 mls/hr IV Q24H [facility] Last Admin: 01/11/17 00:20 Dose: 250 mls/hr Ceftriaxone Sodium/Dextrose 1 (gm/ Premix) 50 mls @ 100 mls/hr IV Q24H [facility] Last Admin: 01/10/17 22:06 Dose: 100 mls/hr Metoprolol Succinate (Toprol Xl) 25 mg PO DAILY [facility] Last Admin: 01/11/17 09:36 Dose: 25 mg Nystatin (Nystatin Crm) 0 gm TOP BID [facility] Last Admin: 01/11/17 09:35 Dose: 1 applic Sodium Chloride (Saline Flush) 10 ml FLUSH ASDIRECTED PRN PRN Reason: Keep Vein Open Sodium Chloride (Saline Flush) 2.5 ml FLUSH ASDIRECTED PRN PRN Reason: Keep Vein Open Tramadol HCl (Ultram) 50 mg PO Q6H PRN PRN Reason: Pain (moderate 4-6) Last Admin: 01/10/17 22:35 Dose: 50 mg Trazodone HCl (Trazodone) 200 mg PO BEDTIME [facility] Last Admin: 01/10/17 21:50 Dose: 200 mg Discontinued Medications Azithromycin 500 mg/ Sodium (Chloride) 250 mls @ 250 mls/hr IV Q24H [facility] Stop: 01/10/17 23:01 Last Admin: 01/09/17 00:38 Dose: Not Given Influenza Virus Vaccine (Fluarix Quad [id number]) 60 mcg IM .ONCE ONE Stop: 01/09/17 00:16 Potassium Chloride (Klor-Con M20) 40 meq PO ONETIME ONE Stop: 01/10/17 07:56 Last Admin: 01/10/17 08:19 Dose: 40 meq - Exam General: Alert, Oriented, Cooperative, No Acute Distress Neck: Supple Lungs: Clear to Auscultation, Normal Respiratory Effort Cardiovascular: Regular Rhythm, No Murmurs, Tachycardia (via auscultation HR noted 160s, regular) GI/Abdominal Exam: Normal Bowel Sounds, Soft, Non-Tender, No Organomegaly, No Distention, No Abnormal Bruit, No Mass, Pelvis Stable Extremities: Normal Inspection, Normal Range of Motion, Non-Tender, No Pedal Edema, Normal Capillary Refill Neurological: No New Focal Deficit Psy/Mental Status: Alert, Normal Affect, Normal Mood - Problem List & Annotations (1) Community acquired pneumonia SNOMED Code(s): 376143709 Code(s): J18.9 - PNEUMONIA, UNSPECIFIED ORGANISM Status: Acute Current Visit: Yes Qualifiers: Laterality: right Lung location: lower lobe of lung Qualified Code(s): J18.1 - Lobar pneumonia, unspecified organism (2) Candidiasis, intertrigo SNOMED Code(s): 736225247 Code(s): B37.2 - CANDIDIASIS OF SKIN AND NAIL Status: Acute Current Visit : Yes (3) Weakness SNOMED Code(s): 84314375 Code(s): R53.1 - WEAKNESS Status: Acute Current Visit: Yes (4) Contusion, back SNOMED Code(s): 03055035 Code(s): S20.229A - CONTUSION OF UNSPECIFIED BACK WALL OF THORAX, INIT ENCNTR Status: Acute Current Visit: No Qualifiers: Encounter type: initial encounter Laterality: right Qualified Code(s): S20.221A - Contusion of right back wall of thorax, initial encounter (5) Fall SNOMED Code(s): 3507482 Code(s): W19.XXXA - UNSPECIFIED FALL, INITIAL ENCOUNTER Status: Acute Current Visit: No Qualifiers: Encounter type: initial encounter Qualified Code(s): W19.XXXA - Unspecified fall, initial encounter - Problem List Review Problem List Initiated/Reviewed/Updated: Yes - My Orders Last 24 Hours: My Active Orders 01/11/17 08:01 Ready for Discharge [RC] PER UNIT ROUTINE 01/11/17 08:29 EKG 12 Lead [EKG Documentation Completion] [RC] STAT 01/11/17 08:30 Telemetry Monitoring [Cardiac Monitoring] [RC] . DIRECTED - Plan Plan:: This 76 year old female admitted with falls, generalized weakness and community acquired pneumonia 1. CAP: Improving. Continue with Azithromycin and Rocephin. Duonebs as needed. BC negative x 2 day. Not requiring oxygen. 2. Falls/generalized weakness: Doing better with ambulation continues to need rehabilitation for strengthening. 3. HTN: Continue Metoprolol 4. Candidiasis: Nystatin to folds. 5. Tachycardia: Noted via auscultation, EKG done but by then HR SR at 99, Continue Metoprolol. Hold off discharge today and monitor on telemetry. Spoke with brother Manuel regarding this and he is ok. VTE prophylaxis: Heparin q12hr Dispo: Pending placement and improvement, likely discharge in am.
[2017-01-11] MEDS: traZODone 50 MG Tab PO SCH (20:13)
[2017-01-11] MEDS: cefTRIAXone 1 GM in Premix Bag 1 BAG IV SCH (22:35)
[2017-01-12] MEDS: Acetaminophen 325 MG Tab PO PRN (05:43)
--- NOTE | 2017-01-12 08:20 | PCM.DCSUM1 ---
Discharge Summary - Hospital Course Brief History: This 76-year-old female was brought to the emergency room 01/08 by her brother because of her having fallen on the floor. She was evaluated for weakness and no specific cause was found. The patient did not have a history of fever or cough or chest pain or abdominal pain or pain with urination. The brother was told that no specific medical condition was found and he took her home. Later this evening, the brother brought the patient back to the emergency room having stated that she is too weak to take care of herself at home and he refused to take her home. The patient was given another round of blood testing. He was not initially communicated to me she had an elevated white blood cell count this time and it was thought that the admission should just be an observation admission for weakness. However with the elevation of her white blood cell count and review of her chest x-ray, possible right lung pneumonia is appreciated. She is admitted for treatment of her right lung pneumonia, and for further evaluation of the weakness that she has. The patient is not dyspneic nor is she hypoxic. She does not complain of leg pain pelvis pain, pain chest pain shortness of breath wheezing or coughing. - Discharge Data Discharge Date: 01/12/17 Discharge Disposition: Home, Self-Care 01 Condition: Good - Discharge Diagnosis/Problem(s) (1) Community acquired pneumonia SNOMED Code(s): 873513079 ICD Code: J18.9 - PNEUMONIA, UNSPECIFIED ORGANISM Status: Acute Current Visit: Yes Qualifiers: Laterality: right Lung location: lower lobe of lung Qualified Code(s): J18.1 - Lobar pneumonia, unspecified organism (2) Candidiasis, intertrigo SNOMED Code(s): 134794291 ICD Code: B37.2 - CANDIDIASIS OF SKIN AND NAIL Status: Acute Current Visit: Yes (3) Weakness SNOMED Code(s): 51141448 ICD Code: R53.1 - WEAKNESS Status: Acute Current Visit: Yes (4) Contusion, back SNOMED Code(s): 42926287 ICD Code: S20.229A - CONTUSION OF UNSPECIFIED BACK WALL OF THORAX, INIT ENCNTR Status: Acute Current Visit: No Qualifiers: Encounter type: initial encounter Laterality: right Qualified Code(s): S20.221A - Contusion of right back wall of thorax, initial encounter (5) Fall SNOMED Code(s): 8709891 ICD Code: W19.XXXA - UNSPECIFIED FALL, INITIAL ENCOUNTER Status: Acute Current Visit: No Qualifiers: Encounter type: initial encounter Qualified Code(s): W19.XXXA - Unspecified fall, initial encounter - Patient Summary/Data Consults: Consultations 01/08/17 22:44 Consult to Physical Therapy [PT Evaluation and Treatment] [CONS] Routine - Patient Instructions Diet: Low Sodium Activity: As Tolerated Showering/Bathing: May Shower Notify Provider of: Fever, Increased Pain, Swelling and Redness, Drainage, Nausea and/or Vomiting Other/Special Instructions: PT/OT to evaluate and treat. - Discharge Plan Prescriptions/Med Rec: Acetaminophen [Tylenol] 650 mg PO Q6H PRN #30 tablet PRN Reason: Pain Azithromycin 500 mg PO DAILY #5 tablet Nystatin [Nystatin Crm] 1 gm TOP BID #1 tube traMADol [Ultram] 50 mg PO Q6H PRN #15 tablet PRN Reason: Pain Home Medications: Home Meds traZODone 200 mg PO BEDTIME 04/11/15 [History] Metoprolol Succinate [Toprol XL] 25 mg PO DAILY 01/09/17 [History] Acetaminophen [Tylenol] 650 mg PO Q6H PRN #30 tablet 01/10/17 [Rx] Azithromycin 500 mg PO DAILY #5 tablet 01/10/17 [Rx] Nystatin [Nystatin Crm] 1 gm TOP BID #1 tube 01/10/17 [Rx] traMADol [Ultram] 50 mg PO Q6H PRN #15 tablet 01/10/17 [Rx] Patient Handouts: Nystatin tablets, Tramadol tablets, Azithromycin tablets, Acetaminophen tablets or caplets, Community-Acquired Pneumonia, Adult, Easy-to- Read Referrals: Morales Willard MD [Physician] - 01/19/17 - Discharge Summary/Plan Comment DC Time >30 min.: No Discharge Summary/Plan Comment: Discharge Diagnoses: CAP Falls Generalized weakness Candidiasis to folds HTN Tonya was admitted and treated with Azithromycin and Rocephin for CAP. She never required oxygen, and improved well with treatment. She was seen by PT for generalized weakness and eventually was able to ambulate well with FWW and 2 assists. She is alert and very pleasant. She is motivated to get home to her cat. Her brother Manuel helps care for here, though she lives independently. He and his are unable to care for her at this time due to weakness and her falling. She will be transferred to [facility] for short term rehab to get stronger with hopes of returning home. She will be sent home with 5 more days. She will resume all home medications. Dr. Morales Willard was notified of admission and has accepted her upon discharge to [facility]. - General Info Date of Service: 01/12/17 Admission Dx/Problem (Free Text: Admission Diagnosis/Problem Admission Diagnosis/Problem Pneumonia Subjective Update: Doing well this morning, very pleasant and eager for discharge to [facility]. She denies any chest pain, palpitations, or SOB. She had a good night and has been up ambulating with assistance well. Functional Status: Reports: Pain Controlled, Tolerating Diet, Ambulating, Urinating - Review of Systems General: Reports: No Symptoms. Denies: Fever Pulmonary: Reports: No Symptoms. Denies: Shortness of Breath Cardiovascular: Reports: No Symptoms. Denies: Chest Pain Gastrointestinal: Reports: No Symptoms. Denies: Abdominal Pain, Nausea, Vomiting Neurological: Reports: No Symptoms. Denies: Confusion Psychiatric: Reports: No Symptoms - Patient Data Vitals - Most Recent: Last Vital Signs Temp 97.9 F 01/12/17 04:00 Pulse 76 01/12/17 04:00 Resp 20 01/12/17 04:00 BP 155/84 H 01/12/17 04:00 Pulse Ox 96 01/12/17 04:00 Weight - Most Recent: 127.5 kg I&O - Last 24 hours: Intake & Output 01/11/17 01/12/17 01/12/17 22:59 06:59 14:59 Intake Total 468 250 Output Total 650 550 Balance -182 -300 ONI Results - Last 24 hrs: Microbiology 01/08/17 23:19 Aerobic Blood Culture - Preliminary Blood - Venous - Lab Draw NO GROWTH AFTER 3 DAYS Anaerobic Blood Culture - Preliminary NO GROWTH AFTER 3 DAYS 01/08/17 23:12 Aerobic Blood Culture - Preliminary Blood - Venous NO GROWTH AFTER 3 DAYS Anaerobic Blood Culture - Preliminary NO GROWTH AFTER 3 DAYS Med Orders - Current: Current Medications Acetaminophen (Tylenol) 650 mg PO Q6H PRN PRN Reason: Pain Last Admin: 01/12/17 05:43 Dose: 650 mg Azithromycin (Zithromax) 500 mg PO DAILY@2100 LISA Heparin Sodium (Porcine) (Heparin Sodium) 5,000 units SUBCUT Q12HR [facility] Last Admin: 01/11/17 20:14 Dose: 5,000 units Ceftriaxone Sodium/Dextrose 1 (gm/ Premix) 50 mls @ 100 mls/hr IV Q24H [facility] Last Admin: 01/11/17 22:35 Dose: 100 mls/hr Metoprolol Succinate (Toprol Xl) 25 mg PO DAILY [facility] Last Admin: 01/11/17 09:36 Dose: 25 mg Nystatin (Nystatin Crm) 0 gm TOP BID [facility] Last Admin: 01/11/17 20:16 Dose: 1 applic Sodium Chloride (Saline Flush) 10 ml FLUSH ASDIRECTED PRN PRN Reason: Keep Vein Open Sodium Chloride (Saline Flush) 2.5 ml FLUSH ASDIRECTED PRN PRN Reason: Keep Vein Open Tramadol HCl (Ultram) 50 mg PO Q6H PRN PRN Reason: Pain (moderate 4-6) Last Admin: 01/10/17 22:35 Dose: 50 mg Trazodone HCl (Trazodone) 200 mg PO BEDTIME [facility] Last Admin: 01/11/17 20:13 Dose: 200 mg Discontinued Medications Azithromycin 500 mg/ Sodium (Chloride) 250 mls @ 250 mls/hr IV Q24H [facility] Stop: 01/10/17 23:01 Last Admin: 01/09/17 00:38 Dose: Not Given Azithromycin 500 mg/ Sodium (Chloride) 250 mls @ 250 mls/hr IV Q24H [facility] Last Admin: 01/11/17 23:22 Dose: 250 mls/hr Influenza Virus Vaccine (Fluarix Quad [id number]) 60 mcg IM .ONCE ONE Stop: 01/09/17 00:16 Potassium Chloride (Klor-Con M20) 40 meq PO ONETIME ONE Stop: 01/10/17 07:56 Last Admin: 01/10/17 08:19 Dose: 40 meq - Exam General: Reports: Alert, Oriented, Cooperative, No Acute Distress Lungs: Reports: Clear to Auscultation, Normal Respiratory Effort Cardiovascular: Reports: Regular Rate, Regular Rhythm GI/Abdominal Exam: Normal Bowel Sounds, Soft, Non-Tender, No Organomegaly, No Distention, No Abnormal Bruit, No Mass, Pelvis Stable Extremities: Normal Inspection, Normal Range of Motion, Pedal Edema (+1 pitting edema to BLE.) Skin: Reports: Warm, Dry, Other (bruising and scrape noted to R lower back from previous fall at home. ). Denies: Intact Wound/Incisions: Reports: Healing Well Neurological: Reports: No New Focal Deficit Psy/Mental Status: Reports: Alert, Normal Affect, Normal Mood *Q Meaningful Use (DIS) - VTE *Q VTE Criteria *Q: - Stroke *Q Stroke Criteria *Q: - AMI *Q AMI Criteria *Q:
[2017-01-12] MEDS: Heparin Sodium 5,000 Units/ML Vial SUBCUT SCH (08:42)
[2017-01-12] MEDS: Metoprolol Succinate 25 MG Tab.ER PO SCH (08:43)
[2017-01-12 08:48] VITALS: BP 155/68
[2017-01-12] MEDS: Nystatin Crm 30 GM Tube TOP SCH (09:30)
[2017-01-12] MEDS ORDERED: Azithromycin 250 MG Tab PO SCH (21:00)
== END 2017-01-12 12:30 | disposition home or self-care (01) | DRG 195 ==
LOC: MW.ED 20:11 → UNDOADMOB 21:10 → INTOOBSV 21:10 → MW.MS 21:10 → OBSVTOIN 21:10 → MW.MS 21:24 → OBSVTOIN 22:45 → MW.MS 22:45 → UNDODISIN 01-12 12:30
PROVIDERS: ADMIT Family Medicine; ATTEND Family Medicine
DX: J18.9 Pneumonia, unspecified organism (principal); R53.1 Weakness; I10 Essential (primary) hypertension; Z88.8 Allergy status to other drugs, medicaments and biological substances; B37.2 Candidiasis of skin and nail; S20.221A Contusion of right back wall of thorax, initial encounter; W18.30XA Fall on same level, unspecified, initial encounter; Y92.019 Unspecified place in single-family (private) house as the place of occurrence of the external cause; Z79.899 Other long term (current) drug therapy; Z71.1 Person with feared health complaint in whom no diagnosis is made; J44.9 Chronic obstructive pulmonary disease, unspecified; F41.9 Anxiety disorder, unspecified; Z90.49 Acquired absence of other specified parts of digestive tract; Z88.5 Allergy status to narcotic agent; R41.82 Altered mental status, unspecified; Z91.81 History of falling
CPT/HCPCS: 36415 ×2; 70450 ×2; 71020; 72125; 80053 ×2; 80305; 81001; 84484; 85025 ×2; 93005; 96361; 96374; 99285 ×2; G0480 ×3; J2405; J7040; 80048; 82607; 84443; 87040; 97161-GP; 97530-GP; 99283; A9270-GY; J0456; J0696; J1644; J7050

== ENCOUNTER 2017-04-27 23:50 | Observation (INO) | payer MEDICARE, OTHER ==
--- NOTE | 2017-04-27 23:54 | EDM.PDOC ---
ED HPI GENERAL MEDICAL PROBLEM - General Chief Complaint: Lower Extremity Injury/Pain Stated Complaint: PT UNABLE TO WALK Time Seen by Provider: 04/27/17 23:53 Source of Information: Reports: Patient, EMS - History of Present Illness INITIAL COMMENTS - FREE TEXT/NARRATIVE: HISTORY AND PHYSICAL: History of present illness: [Patient presents via EMS Patient was recently in [facility] she checked out on her own and is now called EMS as she is unable to care for self she has chronic left hip pain secondary to osteoarthritis unable to ambulate about her home due to pain no fever nausea vomiting chills sweats no chest pain shortness breath headache dizziness palpitation no bowel or urine symptoms Otherwise no distress whatsoever ] Review of systems: As per history of present illness and below otherwise all systems reviewed and negative. Past medical history: As per history of present illness and as reviewed below otherwise noncontributory. Surgical history: As per history of present illness and as reviewed below otherwise noncontributory. Social history: No reported history of drug or alcohol abuse. Family history: As per history of present illness and as reviewed below otherwise noncontributory. Physical exam: HEENT: Atraumatic, normocephalic, pupils reactive, negative for conjunctival pallor or scleral icterus, mucous membranes moist, throat clear, neck supple, nontender, trachea midline. Lungs: Clear to auscultation, breath sounds equal bilaterally, chest nontender. Heart: S1S2, regular, negative for clicks, rubs, or JVD. Abdomen: Soft, nondistended, nontender. Negative for masses or hepatosplenomegaly. Negative for costovertebral tenderness. Pelvis: Stable nontender. Genitourinary: Deferred. Rectal: Deferred. Extremities: Atraumatic, negative for cords or calf pain. Neurovascular unremarkable. Neuro: Awake, alert, oriented. Cranial nerves II through XII unremarkable. Cerebellum unremarkable. Motor and sensory unremarkable throughout. Exam nonfocal. Diagnostics: [CBC CMP troponin EKG chest 1 view pelvis with left hip plain films ] Therapeutics: [] Impression: [Generalized weakness Left hip pain] Definitive disposition and diagnosis as appropriate pending reevaluation and review of above. left hip Pain Score (Numeric/FACES): 8 - Related Data Allergies Allergy/AdvReac Type Severity Reaction Status Date / Time codeine Allergy Dizziness Verified 01/08/17 20:20 Home Meds: Home Meds traZODone 200 mg PO BEDTIME 04/11/15 [History] Metoprolol Succinate [Toprol XL] 25 mg PO DAILY 01/09/17 [History] Acetaminophen [Tylenol] 650 mg PO Q6H PRN #30 tablet 01/10/17 [Rx] Past Medical History HEENT History: Reports: Hard of Hearing Cardiovascular History: Reports: None, Hypertension, SOB on Exertion Respiratory History: Reports: COPD Gastrointestinal History: Reports: Cholelithiasis Genitourinary History: Reports: None [employer]GER History: Reports: None Musculoskeletal History: Reports: Fibromyalgia Neurological History: Reports: None Psychiatric History: Reports: Anxiety Endocrine/Metabolic History: Reports: None Hematologic History: Reports: None Immunologic History: Reports: None Oncologic (Cancer) History: Reports: None Dermatologic History: Reports: None - Infectious Disease History Infectious Disease History: Reports: Chicken Pox, Measles Other Infectious Disease History: childhood - Past Surgical History Head Surgeries/Procedures: Reports: None Respiratory Surgical History: Reports: None GI Surgical History: Reports: Cholecystectomy Other GI Surgeries/Procedures: Stomach staple Social & Family History - Family History Family Medical History: Noncontributory HEENT: Reports: None Cardiac: Reports: [place] Respiratory: Reports: None GI: Reports: None : Reports: None OBGYN: Reports: None Musculoskeletal: Reports: None Neurological: Reports: None Psychiatric: Reports: None Endocrine/Metabolic: Reports: None Hematologic: Reports: None Immunologic: Reports: None Dermatologic: Reports: None Oncologic: Reports: None - Tobacco Use Smoking Status *Q: Never Smoker Second Hand Smoke Exposure: No - Caffeine Use Caffeine Use: Reports: Coffee, Soda Other Caffeine Use: 2 cups/day Caffeine Use Comment: 2 drinks/day - Recreational Drug Use Recreational Drug Use: No - Living Situation & Occupation Living situation: Reports: Occupation: Retired Review of Systems - Review of Systems Review Of Systems: ROS reveals no pertinent complaints other than HPI. ED EXAM, GENERAL - Physical Exam Exam: See Below Course - Vital Signs Last Recorded V/S: Last Vital Signs Temp 97.0 F 04/27/17 23:54 Pulse 97 04/27/17 23:54 Resp 18 04/27/17 23:54 BP 138/64 04/27/17 23:54 Pulse Ox 97 04/27/17 23:54 - Orders/Labs/Meds Orders: Active Orders 24 hr Category Date Time Status EKG 12 Lead [EKG Documentation Completion] [RC] STAT Care 04/27/17 23:51 Active Chest 1V Frontal [CR] Stat Exams 04/27/17 23:51 Taken Hip Min 1V w Pelvis Lt [CR] Stat Exams 04/27/17 23:52 Taken UA W/MICROSCOPIC [URIN] Stat Lab 04/27/17 23:51 Uncollected Labs: Laboratory Tests 04/27/17 04/27/17 Range/Units 00:27 00:27 WBC 7.08 (4.0-11.0) K/uL RBC 4.52 (4.30-5.90) M/uL Hgb 12.5 (12.0-16.0) g/dL Hct 39.0 (36.0-46.0) % MCV 86.3 (80.0-98.0) fL MCH 27.7 (27.0-32.0) pg MCHC 32.1 (31.0-37.0) g/dL RDW Std Deviation 55.4 (28.0-62.0) fl RDW Coeff of Britni 18 H (11.0-15.0) % Plt Count 256 (150-400) K/uL MPV 10.00 (7.40-12.00) fL Neut % (Auto) 45.7 L (48.0-80.0) % Lymph % (Auto) 37.3 (16.0-40.0) % [place] % (Auto) 14.3 (0.0-15.0) % Eos % (Auto) 2.7 (0.0-7.0) % Baso % (Auto) 0.0 (0.0-1.5) % Neut # (Auto) 3.2 (1.4-5.7) K/uL Lymph # (Auto) 2.6 H (0.6-2.4) K/uL [place] # (Auto) 1.0 H (0.0-0.8) K/uL Eos # (Auto) 0.2 (0.0-0.7) K/uL Baso # (Auto) 0.0 (0.0-0.1) K/uL Nucleated RBC % 0.0 /100WBC Nucleated RBCs # 0 K/uL Sodium 142 (136-146) mmol/L Potassium 4.3 (3.5-5.1) mmol/L Chloride 108 (98-110) mmol/L Carbon Dioxide 25 (21-31) mmol/L BUN 18 (6.0-23.0) mg/dL Creatinine 0.8 (0.6-1.5) mg/dL Est Cr Clr Drug Dosing 61.29 mL/min Estimated GFR (MDRD) > 60.0 ml/min Glucose 101 (60-110) mg/dL Calcium 8.8 (8.8-10.8) mg/dL Total Bilirubin 0.3 (0.1-1.5) mg/dL AST 17 (5-40) IU/L ALT 16 (8-54) IU/L Alkaline Phosphatase 118 (40-150) Creatine Kinase 15 (9-236) IU/L CK-MB (CK-2) 0.4 (0-6.6) ng/ml Troponin I < 0.10 (0.0-0.29) NG/ML Total Protein 6.7 (6.0-8.0) g/dL Albumin 3.4 (3.4-4.8) g/dL Globulin 3.3 (2.0-3.5) g/dL Albumin/Globulin Ratio 1.0 L (1.3-2.8) Departure - Departure Time of Disposition: 01:42 Disposition: Refer to Observation Condition: Fair Clinical Impression: Osteoarthritis - Discharge Information Forms: ED Department Discharge - My Orders Last 24 Hours: My Active Orders 04/27/17 23:51 EKG 12 Lead [EKG Documentation Completion] [RC] STAT Chest 1V Frontal [CR] Stat UA W/MICROSCOPIC [URIN] Stat 04/27/17 23:52 Hip Min 1V w Pelvis Lt [CR] Stat - Assessment/Plan Last 24 Hours: My Active Orders 04/27/17 23:51 EKG 12 Lead [EKG Documentation Completion] [RC] STAT Chest 1V Frontal [CR] Stat UA W/MICROSCOPIC [URIN] Stat 04/27/17 23:52 Hip Min 1V w Pelvis Lt [CR] Stat
[2017-04-28 00:57] LABS: CHLORIDE,CL 108 mmol/L (98-110); SODIUM,NA 142 mmol/L (136-146)
[2017-04-28] MEDS ORDERED: Ibuprofen 400 MG Tab PO PRN (03:33)
[2017-04-28] MEDS ORDERED: Acetaminophen 325 MG Tab PO PRN (03:34)
[2017-04-28] MEDS ORDERED: Metoprolol Succinate 25 MG Tab.ER PO SCH (09:00)
[2017-04-28] MEDS ORDERED: FLU Vacc QS 2017-18 (36mos UP)/PF 60 MCG/0.5 ML Syringe IM ONE (10:00)
[2017-04-28 11:38] VITALS: BP 149/77
--- NOTE | 2017-04-28 13:40 | PCM.HP ---
H&P History of Present Illness - General Date of Service: 04/28/17 Admit Problem/Dx: Admission Diagnosis/Problem Admission Diagnosis/Problem Weakness - History of Present Illness Initial Comments - Free Text/Narative: 76-year-old female who presented to the emergency department with chief complaint of weakness, and hip pain. She states that she checked herself out of [facility] this past January after a brief stent for rehabilitation. Otherwise, she states that she feels well. She is able to get up and walk around now. She lives alone, and there are concerns brought up by case management about if this patient is able to take care of herself. ER course: CBC unremarkable CMP unremarkable Hip x-ray shows osteoarthritis Chest x-ray is unremarkable left hip Pain Score (Numeric/FACES): 5 - Related Data Allergies/Adverse Reactions: Allergies Allergy/AdvReac Type Severity Reaction Status Date / Time codeine Allergy Dizziness Verified 01/08/17 20:20 Home Medications: Home Meds traZODone 200 mg PO BEDTIME 04/11/15 [History] Metoprolol Succinate [Toprol XL] 25 mg PO DAILY 01/09/17 [History] Acetaminophen [Tylenol] 650 mg PO Q6H PRN #30 tablet 01/10/17 [Rx] Past Medical History HEENT History: Reports: Hard of Hearing Cardiovascular History: Reports: None, Hypertension, SOB on Exertion Respiratory History: Reports: COPD Gastrointestinal History: Reports: Cholelithiasis Genitourinary History: Reports: None [employer] E[employer]TER History: Reports: None Musculoskeletal History: Reports: Fibromyalgia Neurological History: Reports: None Psychiatric History: Reports: Anxiety Endocrine/Metabolic History: Reports: None Hematologic History: Reports: None Immunologic History: Reports: None Oncologic (Cancer) History: Reports: None Dermatologic History: Reports: None - Infectious Disease History Infectious Disease History: Reports: Chicken Pox, Measles Other Infectious Disease History: childhood - Past Surgical History Head Surgeries/Procedures: Reports: None Respiratory Surgical History: Reports: None GI Surgical History: Reports: Cholecystectomy Other GI Surgeries/Procedures: Stomach staple Social & Family History - Family History Family Medical History: Noncontributory HEENT: Reports: None Cardiac: Reports: [place] Respiratory: Reports: None GI: Reports: None : Reports: None OBGYN: Reports: None Musculoskeletal: Reports: None Neurological: Reports: None Psychiatric: Reports: None Endocrine/Metabolic: Reports: None Hematologic: Reports: None Immunologic: Reports: None Dermatologic: Reports: None Oncologic: Reports: None - Tobacco Use Smoking Status *Q: Never Smoker Second Hand Smoke Exposure: No - Caffeine Use Caffeine Use: Reports: Coffee Other Caffeine Use: 2 cups/day Caffeine Use Comment: 2 drinks/day - Recreational Drug Use Recreational Drug Use: No - Living Situation & Occupation Living situation: Reports: Occupation: Retired H&P Review of Systems - Review of Systems: Review Of Systems: See Below General: Reports: No Symptoms HEENT: Reports: No Symptoms Pulmonary: Reports: No Symptoms Cardiovascular: Reports: No Symptoms Gastrointestinal: Reports: No Symptoms Genitourinary: Reports: No Symptoms Musculoskeletal: Reports: No Symptoms Skin: Reports: No Symptoms Psychiatric: Reports: No Symptoms Neurological: Reports: No Symptoms Hematologic/Lymphatic: Reports: No Symptoms Immunologic: Reports: No Symptoms Exam - Exam Exam: See Below - Vital Signs Vital Signs: Last Vital Signs Temp 36.2 C 04/28/17 11:38 Pulse 69 04/28/17 11:38 Resp 16 04/28/17 11:38 BP 149/77 H 04/28/17 11:38 Pulse Ox 96 04/28/17 11:38 Weight: 122 kg - Exam General: Alert, Oriented, Cooperative HEENT: Conjunctiva Clear, EACs Clear, EOMI Neck: Supple, Trachea Midline Lungs: Clear to Auscultation, Normal Respiratory Effort Cardiovascular: Regular Rate, Regular Rhythm GI/Abdominal Exam: Normal Bowel Sounds, Soft Back Exam: Normal Inspection Extremities: Normal Inspection Skin: Warm Neurological: Cranial Nerves Intact Neuro Extensive - Mental Status: Alert, Oriented x3 Neuro Extensive - Motor, Sensory, Reflexes: CN II-XII Intact Psychiatric: Alert, Normal Affect, Normal Mood - Patient Data Lab Results Last 24 hrs: Laboratory Results - last 24 hr 04/28/17 Range/Units 05:52 WBC 6.10 (4.0-11.0) K/uL RBC 4.16 L (4.30-5.90) M/uL Hgb 11.4 L (12.0-16.0) g/dL Hct 35.7 L (36.0-46.0) % MCV 85.8 (80.0-98.0) fL MCH 27.4 (27.0-32.0) pg MCHC 31.9 (31.0-37.0) g/dL RDW Std Deviation 55.0 (28.0-62.0) fl RDW Coeff of Britni 18 H (11.0-15.0) % Plt Count 236 (150-400) K/uL MPV 10.10 (7.40-12.00) fL Neut % (Auto) 53.6 (48.0-80.0) % Lymph % (Auto) 29.5 (16.0-40.0) % [place] % (Auto) 14.6 (0.0-15.0) % Eos % (Auto) 2.1 (0.0-7.0) % Baso % (Auto) 0.2 (0.0-1.5) % Neut # (Auto) 3.3 (1.4-5.7) K/uL Lymph # (Auto) 1.8 (0.6-2.4) K/uL [place] # (Auto) 0.9 H (0.0-0.8) K/uL Eos # (Auto) 0.1 (0.0-0.7) K/uL Baso # (Auto) 0.0 (0.0-0.1) K/uL Nucleated RBC % 0.0 /100WBC Nucleated RBCs # 0 K/uL Result Diagrams: 04/28/17 05:52 04/27/17 00:27 *Q Meaningful Use (ADM) - VTE *Q VTE Criteria *Q: - Stroke *Q Stroke Criteria *Q: - AMI *Q AMI Criteria *Q: Problem List Initiated/Reviewed/Updated: Yes Orders Last 24hrs: Active Orders 24 hr Category Date Time Status Ready for Discharge [RC] PER UNIT ROUTINE Care 04/28/17 10:55 Active Consult to Physical Therapy [PT Evaluation and Cons 04/28/17 09:06 Active Treatment] [CONS] Routine Regular Diet [DIET] Diet 04/28/17 Breakfast Active Acetaminophen [Tylenol] Med 04/28/17 03:34 Active 650 mg PO Q6H PRN Ibuprofen [Motrin] Med 04/28/17 03:33 Active 400 mg PO Q6H PRN Metoprolol Succinate [Toprol XL] Med 04/28/17 09:00 Active 25 mg PO DAILY Medication Orders Acetaminophen (Tylenol) 650 mg PO Q6H PRN PRN Reason: Pain Ibuprofen (Motrin) 400 mg PO Q6H PRN PRN Reason: Pain Metoprolol Succinate (Toprol Xl) 25 mg PO DAILY LISA Last Admin: 04/28/17 09:46 Dose: 25 mg Assessment/Plan Comment:: Assessment: #1. Ambulatory dysfunction #2. Obesity, history of hypertension, osteoarthritis #3. Request for influenza vaccine #4. Pedal edema Plan: #1. Admit for observation. Pain control with Tylenol when necessary 650 mg by mouth every 6 hours #2. Discharge with home health after physical therapy evaluation. #3. Resume metoprolol 25 mg by mouth daily #4. It looks like she had an echocardiogram done this past July which was unremarkable. her pedal edema is likely secondary to venous insufficiency. She denies any shortness of breath or chest pain. Denied orthopnea. Recommended NILDA hose stockings to be worn as an outpatient.
--- NOTE | 2017-04-28 13:51 | PCM.DCSUM1 ---
Discharge Summary - Hospital Course Free Text/Narrative:: Admission date: April 27, 2017 Discharge date: April 28, 2017 Admission diagnosis: #1. Ambulatory dysfunction #2. Obesity, history of hypertension, osteoarthritis #3. Request for influenza vaccine #4. Pedal edema Discharge diagnosis: #1. Ambulatory dysfunction improved #2. Obesity, history of hypertension, osteoarthritis #3. Request for influenza vaccine #4. Pedal edema Hospital course: 76-year-old female with a history of ambulatory dysfunction walking with a walker that was admitted with a chief complaint of weakness and hip pain for pain control. X-rays obtained in the emergency department indicated osteoarthritis with no acute changes. The next morning when evaluated , the patient stated that her pain had resolved. Physical therapy came by to evaluate the patient and appear that she did well with them. Given that she lives alone, I did advise her that I would like home health to come by and assess if she needs any extra care and help Discharged to: Home with home health agency Need for skilled service: Physical therapy: Strengthening due to weakness from recent hospitalization, deconditioning secondary to body habitus and chronic osteoarthritis resulting in gait instability and high fall risk Occupational therapy: Home safety evaluation for functional safety in home, assess/initiate plan for improvement of cognition issues Primary M.D. who will be following client at home: Dr. Ryan Hannon - Discharge Data Discharge Date: 04/28/17 Discharge Disposition: Home, W Home Health Agency 06 Condition: Good - Patient Summary/Data Consults: Consultations 04/28/17 09:06 Consult to Physical Therapy [PT Evaluation and Treatment] [CONS] Routine - Patient Instructions Diet: Usual Diet as Tolerated Activity: As Tolerated Notify Provider of: Fever, Increased Pain, Swelling and Redness, Drainage, Nausea and/or Vomiting - Discharge Plan Home Medications: Home Meds traZODone 200 mg PO BEDTIME 04/11/15 [History] Metoprolol Succinate [Toprol XL] 25 mg PO DAILY 01/09/17 [History] Acetaminophen [Tylenol] 650 mg PO Q6H PRN #30 tablet 01/10/17 [Rx] Patient Handouts: Weakness, [id number] Referrals: Ryan Hannon MD [Resident] - 05/08/17 3:30 pm - Discharge Summary/Plan Comment Discharge Summary/Plan Comment: Admission date: April 27, 2017 Discharge date: April 28, 2017 Admission diagnosis: #1. Ambulatory dysfunction #2. Obesity, history of hypertension, osteoarthritis #3. Request for influenza vaccine #4. Pedal edema Discharge diagnosis: #1. Ambulatory dysfunction improved #2. Obesity, history of hypertension, osteoarthritis #3. Request for influenza vaccine #4. Pedal edema Hospital course: 76-year-old female with a history of ambulatory dysfunction walking with a walker that was admitted with a chief complaint of weakness and hip pain for pain control. X-rays obtained in the emergency department indicated osteoarthritis with no acute changes. The next morning when evaluated , the patient stated that her pain had resolved. Physical therapy came by to evaluate the patient and appear that she did well with them. Given that she lives alone, I did advise her that I would like home health to come by and assess if she needs any extra care and help Discharged to: Home with home health agency Need for skilled service: Physical therapy: Strengthening due to weakness from recent hospitalization, deconditioning secondary to body habitus and chronic osteoarthritis resulting in gait instability and high fall risk Occupational therapy: Home safety evaluation for functional safety in home, assess/initiate plan for improvement of cognition issues Primary M.D. who will be following client at home: Dr. Ryan Hannon - Patient Data Vitals - Most Recent: Last Vital Signs Temp 36.2 C 04/28/17 11:38 Pulse 69 04/28/17 11:38 Resp 16 04/28/17 11:38 BP 149/77 H 04/28/17 11:38 Pulse Ox 96 04/28/17 11:38 Weight - Most Recent: 122 kg Lab Results - Last 24 hrs: Laboratory Results - last 24 hr 04/28/17 Range/Units 05:52 WBC 6.10 (4.0-11.0) K/uL RBC 4.16 L (4.30-5.90) M/uL Hgb 11.4 L (12.0-16.0) g/dL Hct 35.7 L (36.0-46.0) % MCV 85.8 (80.0-98.0) fL MCH 27.4 (27.0-32.0) pg MCHC 31.9 (31.0-37.0) g/dL RDW Std Deviation 55.0 (28.0-62.0) fl RDW Coeff of Britni 18 H (11.0-15.0) % Plt Count 236 (150-400) K/uL MPV 10.10 (7.40-12.00) fL Neut % (Auto) 53.6 (48.0-80.0) % Lymph % (Auto) 29.5 (16.0-40.0) % [place] % (Auto) 14.6 (0.0-15.0) % Eos % (Auto) 2.1 (0.0-7.0) % Baso % (Auto) 0.2 (0.0-1.5) % Neut # (Auto) 3.3 (1.4-5.7) K/uL Lymph # (Auto) 1.8 (0.6-2.4) K/uL [place] # (Auto) 0.9 H (0.0-0.8) K/uL Eos # (Auto) 0.1 (0.0-0.7) K/uL Baso # (Auto) 0.0 (0.0-0.1) K/uL Nucleated RBC % 0.0 /100WBC Nucleated RBCs # 0 K/uL Med Orders - Current: Current Medications Acetaminophen (Tylenol) 650 mg PO Q6H PRN PRN Reason: Pain Ibuprofen (Motrin) 400 mg PO Q6H PRN PRN Reason: Pain Metoprolol Succinate (Toprol Xl) 25 mg PO DAILY LISA Last Admin: 04/28/17 09:46 Dose: 25 mg Discontinued Medications Influenza Virus Vaccine (Pharmacy To Dose - Influenza Vaccine) 1 each IM ONETIME ONE Stop: 04/28/17 02:28 Influenza Virus Vaccine (Fluarix Quad [id number]) 60 mcg IM .ONCE ONE Stop: 04/28/17 10:01 Last Admin: 04/28/17 10:52 Dose: 60 mcg *Q Meaningful Use (DIS) - VTE *Q VTE Criteria *Q: - Stroke *Q Stroke Criteria *Q: - AMI *Q AMI Criteria *Q:
--- NOTE | 2017-04-28 17:39 | CR ---
EXAM DATE: 04/28/17 PATIENT'S AGE: 76 Patient: KATIE DICKENS Facility: [place], [place] Site . Site : 1940 Study: XRay Pelvis Left [id number]/2/2018 12:23:46 AM Ordering Physician: Doctor Silveira Final Report: Indication: Hip pain Technique: Pelvis and left hip 3 views Comparison: None Findings: Bones: Alignment is normal. No fractures or bone lesions. Joint spaces: There is bilateral hip joint osteoarthritis. Soft tissues: Unremarkable. Impression: Bilateral hip joint osteoarthritis, right greater than left. No other finding to explain pain. Dictated by Ronald Morris MD @ 04/28/2017 12:28:38 AM Dictated by: Ronald Morris MD @ 04/28/2017 00:28:48 (Electronic Signature) Report Signed by Proxy. ZUCK[facility] HILLSIDE HOSPITALStalin
--- NOTE | 2017-04-28 17:40 | CR ---
EXAM DATE: 04/28/17 PATIENT'S AGE: 76 Patient: KATIE DICKENS Facility: [place], [place] Site . Site : 1940 Study: XRay Chest [id number]/2/2018 12:24:11 AM Ordering Physician: Doctor Silveira Final Report: INDICATION: Weakness TECHNIQUE: Chest 1 views COMPARISON: 01/08/2017 FINDINGS: Cardiovascular and mediastinum: Heart size and vasculature are normal in caliber and appearance. Lungs and pleural spaces: Lungs are clear. No sign of infiltrate or mass. No sign of pleural effusion. No pneumothorax. Bones and soft tissues: No significant findings. IMPRESSION: No acute findings and no significant changes from the prior exam. Dictated by Ronald Morris MD @ 04/28/2017 12:29:47 AM Dictated by: Ronald Morris MD @ 04/28/2017 00:29:55 (Electronic Signature) Report Signed by Proxy. ANDREW
== END 2017-04-28 13:10 | disposition home health service (06) ==
LOC: MW.ED 23:50 → MW.MS 04-28 01:42
PROVIDERS: ADMIT Internal Medicine; ATTEND Internal Medicine
DX: M16.0 Bilateral primary osteoarthritis of hip (principal); E66.9 Obesity, unspecified; I10 Essential (primary) hypertension; R60.0 Localized edema; J44.9 Chronic obstructive pulmonary disease, unspecified; F41.9 Anxiety disorder, unspecified; Z23 Encounter for immunization; Z79.899 Other long term (current) drug therapy; Z88.5 Allergy status to narcotic agent; Z90.49 Acquired absence of other specified parts of digestive tract
CPT/HCPCS: 36415; 71045; 73501; 80053; 81001; 82550; 82553; 84484; 85025; 90686; 93005; 97161; 99285; A9270; 99284; G0008; G0378

== ENCOUNTER 2017-07-28 02:31 | Emergency (ER) | payer MEDICARE, OTHER ==
--- NOTE | 2017-07-28 02:47 | EDM.PDOC ---
ED HPI GENERAL MEDICAL PROBLEM - General Chief Complaint: General Stated Complaint: AMBULANCE Time Seen by Provider: 07/28/17 02:44 - History of Present Illness INITIAL COMMENTS - FREE TEXT/NARRATIVE: HISTORY AND PHYSICAL: History of present illness: Patient 77-year-old female who presents by ambulance with nonspecific complaints of general malaise and shortness of breath she denies chest pain shortness breath on arrival here or any other concern she is actually requesting discharge shortly after arrival she does agree to medical screening workup. She denies nausea vomiting fever chills or any other concern Review of systems: As per history of present illness and below otherwise all systems reviewed and negative. Past medical history: As per history of present illness and as reviewed below otherwise noncontributory. Surgical history: As per history of present illness and as reviewed below otherwise noncontributory. Social history: No reported history of drug or alcohol abuse. Family history: As per history of present illness and as reviewed below otherwise noncontributory. Physical exam: HEENT: Atraumatic, normocephalic, pupils reactive, negative for conjunctival pallor or scleral icterus, mucous membranes moist, throat clear, neck supple, nontender, trachea midline. Lungs: Clear to auscultation, breath sounds equal bilaterally, chest nontender. Heart: S1S2, regular, negative for clicks, rubs, or JVD. Abdomen: Soft, nondistended, nontender. Negative for masses or hepatosplenomegaly. Negative for costovertebral tenderness. Pelvis: Stable nontender. Genitourinary: Deferred. Rectal: Deferred. Extremities: Atraumatic, negative for cords or calf pain. Neurovascular unremarkable. Neuro: Awake, alert, oriented. Cranial nerves II through XII unremarkable. Cerebellum unremarkable. Motor and sensory unremarkable throughout. Exam nonfocal. Diagnostics: CBC CMP troponin PT/INR BNP chest x-ray EKG Therapeutics: None Impression: #1 medical screening exam #2 history of dyspnea Definitive disposition and diagnosis as appropriate pending reevaluation and review of above. - Related Data Allergies Allergy/AdvReac Type Severity Reaction Status Date / Time codeine Allergy Dizziness Verified 01/08/17 20:20 Home Meds: Home Meds traZODone 200 mg PO BEDTIME 04/11/15 [History] Metoprolol Succinate [Toprol XL] 25 mg PO DAILY 01/09/17 [History] Acetaminophen [Tylenol] 650 mg PO Q6H PRN #30 tablet 01/10/17 [Rx] Past Medical History HEENT History: Reports: Hard of Hearing Cardiovascular History: Reports: None, Hypertension, SOB on Exertion Respiratory History: Reports: COPD Gastrointestinal History: Reports: Cholelithiasis Genitourinary History: Reports: None [employer] History: Reports: None Musculoskeletal History: Reports: Fibromyalgia Neurological History: Reports: None Psychiatric History: Reports: Anxiety Endocrine/Metabolic History: Reports: None Hematologic History: Reports: None Immunologic History: Reports: None Oncologic (Cancer) History: Reports: None Dermatologic History: Reports: None - Infectious Disease History Infectious Disease History: Reports: Chicken Pox, Measles Other Infectious Disease History: childhood - Past Surgical History Head Surgeries/Procedures: Reports: None Respiratory Surgical History: Reports: None GI Surgical History: Reports: Cholecystectomy Other GI Surgeries/Procedures: Stomach staple Social & Family History - Family History Family Medical History: Noncontributory HEENT: Reports: None Cardiac: Reports: RI Respiratory: Reports: None GI: Reports: None : Reports: None OBGYN: Reports: None Musculoskeletal: Reports: None Neurological: Reports: None Psychiatric: Reports: None Endocrine/Metabolic: Reports: None Hematologic: Reports: None Immunologic: Reports: None Dermatologic: Reports: None Oncologic: Reports: None - Tobacco Use Smoking Status *Q: Never Smoker Second Hand Smoke Exposure: No - Caffeine Use Caffeine Use: Reports: Coffee Other Caffeine Use: 2 cups/day Caffeine Use Comment: 2 drinks/day - Recreational Drug Use Recreational Drug Use: No - Living Situation & Occupation Living situation: Reports: Occupation: Retired ED ROS GENERAL - Review of Systems Review Of Systems: ROS reveals no pertinent complaints other than HPI. ED EXAM, GENERAL - Physical Exam Exam: See Below (See dictation) Course - Vital Signs Last Recorded V/S: Last Vital Signs Temp 36.3 C 07/28/17 02:31 Pulse 78 07/28/17 02:31 Resp 20 07/28/17 02:31 BP 143/67 H 07/28/17 02:31 Pulse Ox 94 L 07/28/17 02:31 - Orders/Labs/Meds Orders: Active Orders 24 hr Category Date Time Status EKG Documentation Completion [RC] STAT Care 07/28/17 02:37 Active Chest 1V Frontal [CR] Stat Exams 07/28/17 02:37 Ordered B-TYPE NATRIURETIC PEPTIDE,BNP [CHEM] Stat Lab 07/28/17 02:37 Ordered CBC WITH AUTO DIFF [HEME] Stat Lab 07/28/17 02:37 Ordered CKMB [CHEM] Stat Lab 07/28/17 02:37 Ordered COMPREHENSIVE METABOLIC PN,CMP [CHEM] Stat Lab 07/28/17 02:37 Ordered TROPONIN I [CHEM] Stat Lab 07/28/17 02:37 Ordered Departure - Departure Time of Disposition: 02:46 Disposition: Home, Self-Care 01 Condition: Good Clinical Impression: Encounter for medical screening examination - Discharge Information Referrals: Marcus Menchaca MD [Primary Care Provider] - Additional Instructions: The following information is given to patients seen in the emergency department who are being discharged to home. This information is to outline your options for follow-up care. We provide all patients seen in our emergency department with a follow-up referral. The need for follow-up, as well as the timing and circumstances, are variable depending upon the specifics of your emergency department visit. If you don't have a primary care physician on staff, we will provide you with a referral. We always advise you to contact your personal physician following an emergency department visit to inform them of the circumstance of the visit and for follow-up with them and/or the need for any referrals to a consulting specialist. The emergency department will also refer you to a specialist when appropriate. This referral assures that you have the opportunity for followup care with a specialist. All of these measure are taken in an effort to provide you with optimal care, which includes your followup. Under all circumstances we always encourage you to contact your private physician who remains a resource for coordinating your care. When calling for followup care, please make the office aware that this follow-up is from your recent emergency room visit. If for any reason you are refused follow-up, please contact the [facility] emergency department at and asked to speak to the emergency department charge nurse. Follow-up primary medical doctor return as needed as discussed - My Orders Last 24 Hours: My Active Orders 07/28/17 02:37 EKG Documentation Completion [RC] STAT Chest 1V Frontal [CR] Stat B-TYPE NATRIURETIC PEPTIDE,BNP [CHEM] Stat CBC WITH AUTO DIFF [HEME] Stat CKMB [CHEM] Stat COMPREHENSIVE METABOLIC PN,CMP [CHEM] Stat TROPONIN I [CHEM] Stat - Assessment/Plan Last 24 Hours: My Active Orders 07/28/17 02:37 EKG Documentation Completion [RC] STAT Chest 1V Frontal [CR] Stat B-TYPE NATRIURETIC PEPTIDE,BNP [CHEM] Stat CBC WITH AUTO DIFF [HEME] Stat CKMB [CHEM] Stat COMPREHENSIVE METABOLIC PN,CMP [CHEM] Stat TROPONIN I [CHEM] Stat
[2017-07-28 03:28] LABS: CHLORIDE,CL 110 mmol/L (98-107); SODIUM,NA 143 mmol/L (136-145)
[2017-07-28 04:30] VITALS: BP 145/70
--- NOTE | 2017-07-28 15:26 | CR ---
EXAM DATE: 07/28/17 PATIENT'S AGE: 77 Patient: KATIE DICKENS Facility: [place], [place] Site . Site : 1940 Study: XRay Chest [id number]/4/2018 3:03:33 AM Ordering Physician: Doctor Silveira Final Report: Indication: Shortness of breath Technique: Chest 1 view Comparison: None Findings/Impression: Mild cardiomegaly. Minimal linear atelectasis at the left lung base. No focal consolidation, significant effusion, or pneumothorax. Osseous structures are intact. Dictated by Yessi Doan MD @ Jul 28 2017 3:08AM (Electronic Signature) Report Signed by Proxy. ANDREW
== END 2017-07-28 04:00 | disposition home or self-care (01) ==
LOC: MW.ED 02:31
DX: Z13.9 Encounter for screening, unspecified (principal); I10 Essential (primary) hypertension; J44.9 Chronic obstructive pulmonary disease, unspecified; F41.9 Anxiety disorder, unspecified; Z88.5 Allergy status to narcotic agent; Z79.899 Other long term (current) drug therapy
CPT/HCPCS: 36415; 71045; 71045-26; 80053; 82553; 83880; 84484; 85025; 93005; 99285-25

== ENCOUNTER 2017-08-11 11:27 | Emergency (ER) | payer MEDICARE, OTHER ==
[2017-08-11] MEDS ORDERED: Sodium Chloride 0.9% 10 ML Syringe FLUSH PRN (11:34)
[2017-08-11] MEDS ORDERED: Sodium Chloride 0.9% 2.5 ML Syringe FLUSH PRN (11:34)
--- NOTE | 2017-08-11 11:42 | EDM.PDOC ---
ED HPI GENERAL MEDICAL PROBLEM - General Chief Complaint: General Stated Complaint: AMBULANCE Time Seen by Provider: 08/11/17 11:30 Source of Information: Reports: Patient History Limitations: Reports: No Limitations - History of Present Illness INITIAL COMMENTS - FREE TEXT/NARRATIVE: HISTORY AND PHYSICAL: History of present illness: 77-year-old female presenting to emergency department by ambulance secondary to fall this morning. Patient states that while walking back from the bathroom she tripped and fell. She denies any chest pain or shortness breath prior to proceeding the event. She did not lose consciousness. States that she just tripped and fell. Friends called for ambulance. Patient states that she did not injure herself and is complaining of no pain. [id number]- Brother at bedside with nursing and states that for the past few days he has noticed that his sister has been coughing some and doesn't seem that she has had much energy. Review of systems: As per history of present illness and below otherwise all systems reviewed and negative. Past medical history: As per history of present illness and as reviewed below otherwise noncontributory. Surgical history: As per history of present illness and as reviewed below otherwise noncontributory. Social history: No reported history of drug or alcohol abuse. Family history: As per history of present illness and as reviewed below otherwise noncontributory. Physical exam: HEENT: Atraumatic, normocephalic, pupils reactive, negative for conjunctival pallor or scleral icterus, mucous membranes moist, throat clear, neck supple, nontender, trachea midline. Lungs: Clear to auscultation, breath sounds equal bilaterally, chest nontender. Heart: S1S2, regular, negative for clicks, rubs, or JVD. Abdomen: Soft, nondistended, nontender. Negative for masses or hepatosplenomegaly. Negative for costovertebral tenderness. Pelvis: Stable nontender. Genitourinary: Deferred. Rectal: Deferred. Extremities: Atraumatic, negative for cords or calf pain. Neurovascular unremarkable. Neuro: Awake, alert, oriented. Cranial nerves II through XII unremarkable. Cerebellum unremarkable. Motor and sensory unremarkable throughout. Exam nonfocal. Diagnostics: [CBC, CMP, troponin, INR, EKG, chest x-ray] Therapeutics: [] Impression: [Fall from standing without injury, viral upper respiratory tract infection] Plan: We did a full cardiac workup on patient which was negative. Patient reported no injuries or pain. Fall is most likely secondary to tripping. CBC, CMP, troponin , and chest x-ray were unremarkable. Patient has a mild cough that is nonproductive and most likely secondary to viral respiratory tract infection. She is instructed to use vaporizer at night. She continues Tylenol and ibuprofen for fever and pain relief. She should return to emergency department if she has any new or worsening symptoms. Definitive disposition and diagnosis as appropriate pending reevaluation and review of above. 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: Reports: None Musculoskeletal History: Reports: Fibromyalgia Neurological History: Reports: None Psychiatric History: Reports: Anxiety Endocrine/Metabolic History: Reports: None Hematologic History: Reports: None Immunologic History: Reports: None Oncologic (Cancer) History: Reports: None Dermatologic History: Reports: None - Infectious Disease History Infectious Disease History: Reports: Chicken Pox, Measles Other Infectious Disease History: childhood - Past Surgical History Head Surgeries/Procedures: Reports: None Respiratory Surgical History: Reports: None GI Surgical History: Reports: Cholecystectomy Other GI Surgeries/Procedures: Stomach staple Social & Family History - Family History Family Medical History: Noncontributory HEENT: Reports: None Cardiac: Reports: [place] Respiratory: Reports: None GI: Reports: None : Reports: None OBGYN: Reports: None Musculoskeletal: Reports: None Neurological: Reports: None Psychiatric: Reports: None Endocrine/Metabolic: Reports: None Hematologic: Reports: None Immunologic: Reports: None Dermatologic: Reports: None Oncologic: Reports: None - Caffeine Use Caffeine Use: Reports: Coffee Other Caffeine Use: 2 cups/day Caffeine Use Comment: 2 drinks/day - Living Situation & Occupation Living situation: Reports: Occupation: Retired ED ROS GENERAL - Review of Systems Review Of Systems: See Below ED EXAM, GENERAL - Physical Exam Exam: See Below Course - Vital Signs Last Recorded V/S: Last Vital Signs Temp 96.3 F 08/11/17 11:28 Pulse 66 08/11/17 11:28 Resp 18 08/11/17 11:28 BP 135/106 H 08/11/17 11:28 Pulse Ox 94 L 08/11/17 11:28 - Orders/Labs/Meds Orders: Active Orders 24 hr Category Date Time Status Cardiac Monitoring [RC] . DIRECTED Care 08/11/17 11:34 Active EKG Documentation Completion [RC] STAT Care 08/11/17 11:34 Active Oxygen Therapy [RC] ASDIRECTED Care 08/11/17 11:34 Active Pulse Oximetry [RC] ASDIRECTED Care 08/11/17 11:34 Active UA W/MICROSCOPIC [URIN] Stat Lab 08/11/17 11:35 Ordered Sodium Chloride 0.9% [Saline Flush] Med 08/11/17 11:34 Active 10 ml FLUSH ASDIRECTED PRN Sodium Chloride 0.9% [Saline Flush] Med 08/11/17 11:34 Active 2.5 ml FLUSH ASDIRECTED PRN Saline Lock Insert [OM.PC] Stat Oth 08/11/17 11:34 Ordered Medication Orders Sodium Chloride (Saline Flush) 10 ml FLUSH ASDIRECTED PRN PRN Reason: Keep Vein Open Sodium Chloride (Saline Flush) 2.5 ml FLUSH ASDIRECTED PRN PRN Reason: Keep Vein Open Labs: Laboratory Tests 08/11/17 08/11/17 08/11/17 Range/Units 12:17 12:17 12:17 WBC 9.27 (4.0-11.0) K/uL RBC 4.45 (4.30-5.90) M/uL Hgb 12.5 (12.0-16.0) g/dL Hct 37.7 (36.0-46.0) % MCV 84.7 (80.0-98.0) fL MCH 28.1 (27.0-32.0) pg MCHC 33.2 (31.0-37.0) g/dL RDW Std Deviation 53.3 (28.0-62.0) fl RDW Coeff of Britni 17 H (11.0-15.0) % Plt Count 227 (150-400) K/uL MPV 10.30 (7.40-12.00) fL Neut % (Auto) 80.0 (48.0-80.0) % Lymph % (Auto) 8.7 L (16.0-40.0) % [place] % (Auto) 10.6 (0.0-15.0) % Eos % (Auto) 0.6 (0.0-7.0) % Baso % (Auto) 0.1 (0.0-1.5) % Neut # (Auto) 7.4 H (1.4-5.7) K/uL Lymph # (Auto) 0.8 (0.6-2.4) K/uL [place] # (Auto) 1.0 H (0.0-0.8) K/uL Eos # (Auto) 0.1 (0.0-0.7) K/uL Baso # (Auto) 0.0 (0.0-0.1) K/uL Nucleated RBC % 0.0 /100WBC Nucleated RBCs # 0 K/uL INR 1.06 Sodium 141 (136-145) mmol/L Potassium 4.1 (3.5-5.1) mmol/L Chloride 104 (98-107) mmol/L Carbon Dioxide 30.7 (21.0-32.0) mmol/L BUN 19 H (7.0-18.0) mg/dL Creatinine 0.9 (0.6-1.0) mg/dL Est Cr Clr Drug Dosing 53.64 mL/min Estimated GFR (MDRD) > 60.0 ml/min Glucose 126 H (74-106) mg/dL Calcium 8.7 (8.5-10.1) mg/dL Total Bilirubin 1.2 H (0.2-1.0) mg/dL AST 21 (15-37) IU/L ALT 18 (14-63) IU/L Alkaline Phosphatase 166 H (46-116) U/L Troponin I < 0.050 (0.000-0.056) ng/mL Total Protein 6.5 (6.4-8.2) g/dL Albumin 2.9 L (3.4-5.0) g/dL Globulin 3.6 H (2.0-3.5) g/dL Albumin/Globulin Ratio 0.8 L (1.3-2.8) Meds: Medications Generic Name Dose Route Start Last Admin Trade Name Freq PRN Reason Stop Dose Admin Sodium Chloride 10 ml 08/11/17 11:34 Saline Flush FLUSH ASDIRECTED PRN Keep Vein Open Sodium Chloride 2.5 ml 08/11/17 11:34 Saline Flush FLUSH ASDIRECTED PRN Keep Vein Open Departure - Departure Time of Disposition: 13:27 Disposition: Home, Self-Care 01 Condition: Good Clinical Impression: Viral upper respiratory tract infection with cough - Discharge Information Referrals: PCP,Unknown [Primary Care Provider] - Forms: ED Department Discharge Additional Instructions: My general discharge The following information is given to patients seen in the emergency department who are being discharged to home. This information is to outline your options for follow-up care. We provide all patients seen in our emergency department with a follow-up referral. The need for follow-up, as well as the timing and circumstances, are variable depending upon the specifics of your emergency department visit. If you don't have a primary care physician on staff, we will provide you with a referral. We always advise you to contact your personal physician following an emergency department visit to inform them of the circumstance of the visit and for follow-up with them and/or the need for any referrals to a consulting specialist. The emergency department will also refer you to a specialist when appropriate. This referral assures that you have the opportunity for follow-up care with a specialist. All of these measure are taken in an effort to provide you with optimal care, which includes your follow-up. Under all circumstances we always encourage you to contact your private physician who remains a resource for coordinating your care. When calling for follow-up care, please make the office aware that this follow-up is from your recent emergency room visit. If for any reason you are refused follow-up, please contact the [facility] at and asked to speak to the emergency department charge nurse. [facility] [address] [place] [id number] - My Orders Last 24 Hours: My Active Orders 08/11/17 11:34 Cardiac Monitoring [RC] . DIRECTED EKG Documentation Completion [RC] STAT Oxygen Therapy [RC] ASDIRECTED Pulse Oximetry [RC] ASDIRECTED Sodium Chloride 0.9% [Saline Flush] 10 ml FLUSH ASDIRECTED PRN Sodium Chloride 0.9% [Saline Flush] 2.5 ml FLUSH ASDIRECTED PRN Saline Lock Insert [OM.PC] Stat 08/11/17 11:35 UA W/MICROSCOPIC [URIN] Stat - Assessment/Plan Last 24 Hours: My Active Orders 08/11/17 11:34 Cardiac Monitoring [RC] . DIRECTED EKG Documentation Completion [RC] STAT Oxygen Therapy [RC] ASDIRECTED Pulse Oximetry [RC] ASDIRECTED Sodium Chloride 0.9% [Saline Flush] 10 ml FLUSH ASDIRECTED PRN Sodium Chloride 0.9% [Saline Flush] 2.5 ml FLUSH ASDIRECTED PRN Saline Lock Insert [OM.PC] Stat 08/11/17 11:35 UA W/MICROSCOPIC [URIN] Stat
[2017-08-11 13:03] LABS: CHLORIDE,CL 104 mmol/L (98-107); SODIUM,NA 141 mmol/L (136-145)
--- NOTE | 2017-08-11 13:09 | CR ---
EXAMINATION: Portable chest radiograph. HISTORY: Fall. FINDINGS: The trachea is midline. The cardiomediastinal silhouette is within normal limits. No pulmonary infilt rates, effusions or pneumothorax. Osseous structures appear unremarkable. IMPRESSION: No acute cardiopulmonary process.
[2017-08-12 07:16] VITALS: BP 146/85
== END 2017-08-11 14:17 | disposition home or self-care (01) ==
LOC: MW.ED 11:27
DX: J06.9 Acute upper respiratory infection, unspecified (principal); Z88.5 Allergy status to narcotic agent; Z79.899 Other long term (current) drug therapy
CPT/HCPCS: 36415; 71045; 71045-26; 80053; 84484; 85025; 85610; 93005; 99285-25

== ENCOUNTER 2017-08-12 19:36 | Emergency (ER) | payer MEDICARE, OTHER ==
--- NOTE | 2017-08-12 20:10 | EDM.PDOC ---
ED HPI GENERAL MEDICAL PROBLEM - General Chief Complaint: Back Pain or Injury Stated Complaint: PT HAS BACK PAIN Time Seen by Provider: 08/12/17 20:09 Source of Information: Reports: Patient - History of Present Illness INITIAL COMMENTS - FREE TEXT/NARRATIVE: HISTORY AND PHYSICAL: History of present illness: [ Patient presents post fall in the home apparently she fell flat to her bottom she has had generalized weakness generally over the wintertime she is fairly sedentary so she has not had much problem her son brings her in today with request for physical therapy We will refer him to primary care to arrange physical therapy otherwise the patient has no complaints herself fever nausea no fever nausea vomiting diarrhea constipation chest pain shortness breath headache dizziness palpitation no bowel or urine symptoms ] Review of systems: As per history of present illness and below otherwise all systems reviewed and negative. Past medical history: As per history of present illness and as reviewed below otherwise noncontributory. Surgical history: As per history of present illness and as reviewed below otherwise noncontributory. Social history: No reported history of drug or alcohol abuse. Family history: As per history of present illness and as reviewed below otherwise noncontributory. Physical exam: HEENT: Atraumatic, normocephalic, pupils reactive, negative for conjunctival pallor or scleral icterus, mucous membranes moist, throat clear, neck supple, nontender, trachea midline. Lungs: Clear to auscultation, breath sounds equal bilaterally, chest nontender. Heart: S1S2, regular, negative for clicks, rubs, or JVD. Abdomen: Soft, nondistended, nontender. Negative for masses or hepatosplenomegaly. Negative for costovertebral tenderness. Pelvis: Stable nontender. Genitourinary: Deferred. Rectal: Deferred. Extremities: Atraumatic, negative for cords or calf pain. Neurovascular unremarkable. Neuro: Awake, alert, oriented. Cranial nerves II through XII unremarkable. Cerebellum unremarkable. Motor and sensory unremarkable throughout. Exam nonfocal. Diagnostics: [X-ray pelvis Sacrum coccyx O plain film ] Therapeutics: [] Impression: [ screening exam ] Definitive disposition and diagnosis as appropriate pending reevaluation and review of above. 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 Musculoskeletal History: Reports: Fibromyalgia Neurological History: Reports: None Psychiatric History: Reports: Anxiety Endocrine/Metabolic History: Reports: None Hematologic History: Reports: None Immunologic History: Reports: None Oncologic (Cancer) History: Reports: None Dermatologic History: Reports: None - Infectious Disease History Infectious Disease History: Reports: Chicken Pox, Measles Other Infectious Disease History: childhood - Past Surgical History Head Surgeries/Procedures: Reports: None Respiratory Surgical History: Reports: None GI Surgical History: Reports: Cholecystectomy Other GI Surgeries/Procedures: Stomach staple Social & Family History - Family History Family Medical History: Noncontributory HEENT: Reports: None Cardiac: Reports: [place] Respiratory: Reports: None GI: Reports: None : Reports: None OBGYN: Reports: None Musculoskeletal: Reports: None Neurological: Reports: None Psychiatric: Reports: None Endocrine/Metabolic: Reports: None Hematologic: Reports: None Immunologic: Reports: None Dermatologic: Reports: None Oncologic: Reports: None - Caffeine Use Caffeine Use: Reports: Coffee Other Caffeine Use: 2 cups/day Caffeine Use Comment: 2 drinks/day - Living Situation & Occupation Living situation: Reports: Occupation: Retired ED ROS GENERAL - Review of Systems Review Of Systems: ROS reveals no pertinent complaints other than HPI. ED EXAM, GENERAL - Physical Exam Exam: See Below Course - Vital Signs Last Recorded V/S: Last Vital Signs Temp 98.4 F 08/12/17 19:36 Pulse 81 08/12/17 19:36 Resp 18 08/12/17 19:36 BP 138/67 08/12/17 19:36 Pulse Ox 88 L 08/12/17 19:36 - Orders/Labs/Meds Orders: Active Orders 24 hr Category Date Time Status Pelvis 1V or 2V [CR] Stat Exams 08/12/17 19:49 Taken Sacrum Coccyx Min 2V [CR] Stat Exams 05/19/18 19:50 Taken Departure - Departure Time of Disposition: 21:43 Disposition: Home, Self-Care 01 Condition: Good Clinical Impression: Encounter for medical screening examination - Discharge Information Forms: ED Department Discharge Additional Instructions: ER referral for primary care Continue current home medications Consider physical therapy with your primary care provider or detention placement [facility] - Primary Care [address] [place] [phone] The following information is given to patients seen in the emergency department who are being discharged to home. This information is to outline your options for follow-up care. We provide all patients seen in our emergency department with a follow-up referral. The need for follow-up, as well as the timing and circumstances, are variable depending upon the specifics of your emergency department visit. If you don't have a primary care physician on staff, we will provide you with a referral. We always advise you to contact your personal physician following an emergency department visit to inform them of the circumstance of the visit and for follow-up with them and/or the need for any referrals to a consulting specialist. The emergency department will also refer you to a specialist when appropriate. This referral assures that you have the opportunity for follow-up care with a specialist. All of these measure are taken in an effort to provide you with optimal care, which includes your follow-up. Under all circumstances we always encourage you to contact your private physician who remains a resource for coordinating your care. When calling for follow-up care, please make the office aware that this follow-up is from your recent emergency room visit. If for any reason you are refused follow-up, please contact the [facility] emergency department at and asked to speak to the emergency department charge nurse. - My Orders Last 24 Hours: My Active Orders 08/12/17 19:49 Pelvis 1V or 2V [CR] Stat 08/12/17 19:50 Sacrum Coccyx Min 2V [CR] Stat - Assessment/Plan Last 24 Hours: My Active Orders 08/12/17 19:49 Pelvis 1V or 2V [CR] Stat 08/12/17 19:50 Sacrum Coccyx Min 2V [CR] Stat
[2017-08-12 23:30] VITALS: BP 138/67
--- NOTE | 2017-08-14 11:42 | CR ---
EXAM DATE: 08/12/17 PATIENT'S AGE: 77 Patient: KATIE DICKENS Facility: [place], [place] Site . Site : 1940 Study: XRay Pelvis [id number] 8:18:54 PM Ordering Physician: Doctor Silveira Final Report: INDICATION: Trauma. Fall. Pain. TECHNIQUE: AP pelvis. FINDINGS: Skeletal demineralization. The sacroiliac joints are intact. No convincing evidence for sacral fracture. The lower sacrum and coccyx are poorly visualized. Degenerative narrowing of the hips. No hip fracture or dislocation. IMPRESSION: No acute fracture of the pelvis or hips. The sacrum and coccyx are incompletely visualized. Dictated by Romeo Torres MD @ Aug 12 2017 8:22PM (Electronic Signature) Report Signed by Proxy. ANDREW
--- NOTE | 2017-08-14 11:43 | CR ---
EXAM DATE: 08/12/17 PATIENT'S AGE: 77 Patient: KATIE DICKENS Facility: [place], [place] Site . Site : 1940 Study: XRay Pelvis sacrum coccyx [id number]/19/2018 8:20:09 PM Ordering Physician: Doctor Silveira Final Report: Indication: Fall Technique: Two views sacrum and coccyx Comparison: None Findings: Bones: Osteopenia. Alignment is normal. No fractures or bone lesions. Joint spaces: Unremarkable. Soft tissues: Amorphous round calcification projecting over the pelvis may represent a uterine fibroid. Impression: Negative. If there is clinical concern for pelvic fracture, CT would be useful for further evaluation. Dictated by Yessi Doan MD @ Aug 12 2017 8:40PM (Electronic Signature) Report Signed by Proxy. ANDREW
== END 2017-08-12 22:10 | disposition home or self-care (01) ==
LOC: MW.ED 19:36
DX: Z13.9 Encounter for screening, unspecified (principal); I10 Essential (primary) hypertension; Z88.5 Allergy status to narcotic agent; Z79.899 Other long term (current) drug therapy
CPT/HCPCS: 72170; 72170-26; 72220; 72220-26; 99283

== ENCOUNTER 2018-07-05 10:14 | Emergency (ER) | payer MEDICARE, OTHER ==
[2018-07-05] MEDS ORDERED: Albuterol/Ipratropium 3.0-0.5 MG/3 ML Neb Soln NEB ONE (10:23)
[2018-07-05] MEDS ORDERED: methylPREDNISolone Sodium Succinate 125 MG/2 ML SDV IM ONE (10:28)
[2018-07-05] MEDS ORDERED: Sodium Chloride 0.9% 1,000 ML IV ONE (10:29)
[2018-07-05] MEDS ORDERED: methylPREDNISolone Sodium Succinate 125 MG/2 ML SDV IVPUSH ONE (10:33)
--- NOTE | 2018-07-05 10:33 | EDM.PDOC ---
ED HPI GENERAL MEDICAL PROBLEM - General Chief Complaint: Respiratory Problem Stated Complaint: COUGH Time Seen by Provider: 07/05/18 10:17 Source of Information: Reports: Patient History Limitations: Reports: No Limitations - History of Present Illness INITIAL COMMENTS - FREE TEXT/NARRATIVE: HISTORY AND PHYSICAL: History of present illness: Patient is a 77-year-old female who presents to the ED today with concern of cough and nasal congestion 7 days. Patient states that she does have a history of pneumonia in the past and is concerned that she is developing this. Patient also has a history of COPD and does not have any inhalers/nebulizers at home. Patient has not taken any medications for her symptoms. Patient states she has high blood pressure and has not been following with her primary doctor accordingly. Patient denies fever, chills, chest pain, shortness of breath. Denies headache, neck stiff ness, change in vision, syncope, or near syncope. Denies nausea, vomiting, abdominal pain, diarrhea, constipation, or dysuria. Has not noted any blood in urine or stool. Patient has been eating and drinking appropriately. Patient has a history of hypertension and COPD. Review of systems: As per history of present illness and below otherwise all systems reviewed and negative. Past medical history: As per history of present illness and as reviewed below otherwise noncontributory. Surgical history: As per history of present illness and as reviewed below otherwise noncontributory. Social history: See social history for further information Family history: As per history of present illness and as reviewed below otherwise noncontributory. Physical exam: General: Patient is alert, oriented, and in no acute distress. Patient sitting comfortably on exam table. HEENT: Atraumatic, normocephalic, pupils equal and reactive bilaterally, negative for conjunctival pallor or scleral icterus, mucous membranes moist, TMs normal bilaterally, throat mildly erythematous with post nasal drip, neck supple, nontender, trachea midline. No drooling or trismus noted. No meningeal signs. No hot potato voice noted. Bilateral clear nasal drainage. Negative pain to palpation of the maxillary or frontal sinuses. Lungs: Diffuse wheezing to all lung munson to auscultation, breath sounds equal bilaterally, chest nontender. Dry cough. Heart: Limited due to lung sounds. S1S2, regular rate and rhythm without overt murmur Abdomen: Obese, soft, nondistended, nontender. Negative for masses or hepatosplenomegaly. Negative for costovertebral tenderness. Pelvis: Stable nontender. Genitourinary: Deferred. Rectal: Deferred. Skin: Intact, warm, dry. No lesions or rashes noted. Extremities: Atraumatic, negative for cords or calf pain. Neurovascular unremarkable. Neuro: Awake, alert, oriented. Cranial nerves II through XII unremarkable. Cerebellum unremarkable. Motor and sensory unremarkable throughout. Exam nonfocal. Notes: According to patient, her blood pressure today reflects her usual pressures in the past. She denies workup for her blood pressure today. After DuoNeb and Solu-Medrol in the ED, patient's oxygen on room air is approximately 98%, which increased from 91-92% on arrival to ED. Patient states she does feel much better with treatment today in the ED. Patient is adamant about leaving the ED today without further evaluation of blood pressure or for continued monitoring. Discussed the importance for follow-up with her primary care provider. Supportive care measures were reviewed and discussed. Voices understanding and is agreeable to plan of care. Denies any further questions or concerns at this time. Diagnostics: CBC, CMP, chest x-ray Therapeutics: DuoNeb, Solu-Medrol, saline Prescription: DuoNeb, Proventil inhaler, Prednisone, Azithromycin Impression: COPD exacerbation Plan: 1. Take medications as prescribed. 2. Follow-up with her primary care provider as discussed. 3. Return to the ED as needed and as discussed. Definitive disposition and diagnosis as appropriate pending reevaluation and review of above. - Related Data Allergies Allergy/AdvReac Type Severity Reaction Status Date / Time codeine Allergy Dizziness Verified 07/05/18 10:21 Home Meds: Home Meds traZODone 200 mg PO BEDTIME 04/11/15 [History] Metoprolol Succinate [Toprol XL] 25 mg PO DAILY 01/09/17 [History] Albuterol Sulfate [Proair Hfa] 8.5 gm IH QID PRN #1 inhaler 07/05/18 [Rx] Albuterol/Ipratropium [DuoNeb 3.0-0.5 MG/3 ML] 3 ml NEB QID 10 Days #30 neb 02/12 [Rx] Sertraline [Zoloft] 25 mg PO DAILY 07/05/18 [History] predniSONE [Prednisone] 10 mg PO BID 5 Days #10 tab.ds.pk 07/05/18 [Rx] Past Medical History HEENT History: Reports: Hard of Hearing Cardiovascular History: Reports: None, Hypertension, SOB on Exertion Respiratory History: Reports: COPD Gastrointestinal History: Reports: Cholelithiasis Genitourinary History: Reports: None PULVERIZER TENDER History: Reports: None Musculoskeletal History: Reports: Fibromyalgia Neurological History: Reports: None Psychiatric History: Reports: Anxiety Endocrine/Metabolic History: Reports: None Hematologic History: Reports: None Immunologic History: Reports: None Oncologic (Cancer) History: Reports: None Dermatologic History: Reports: None - Infectious Disease History Infectious Disease History: Reports: Chicken Pox, Measles Other Infectious Disease History: childhood - Past Surgical History Head Surgeries/Procedures: Reports: None Respiratory Surgical History: Reports: None GI Surgical History: Reports: Cholecystectomy Other GI Surgeries/Procedures: Stomach staple Social & Family History - Family History Family Medical History: Noncontributory HEENT: Reports: None Cardiac: Reports: [place] Respiratory: Reports: None GI: Reports: None : Reports: None OBGYN: Reports: None Musculoskeletal: Reports: None Neurological: Reports: None Psychiatric: Reports: None Endocrine/Metabolic: Reports: None Hematologic: Reports: None Immunologic: Reports: None Dermatologic: Reports: None Oncologic: Reports: None - Tobacco Use Smoking Status *Q: Never Smoker - Caffeine Use Caffeine Use: Reports: Coffee Other Caffeine Use: 2 cups/day Caffeine Use Comment: 2 drinks/day - Recreational Drug Use Recreational Drug Use: No - Living Situation & Occupation Living situation: Reports: Occupation: Retired ED ROS GENERAL - Review of Systems Review Of Systems: ROS reveals no pertinent complaints other than HPI. ED EXAM, GENERAL - Physical Exam Exam: See Below (See dictation) Course - Vital Signs Last Recorded V/S: Last Vital Signs Temp 35.9 C 07/05/18 10:18 Pulse 63 07/05/18 11:43 Resp 18 07/05/18 11:43 BP 177/71 H 07/05/18 11:43 Pulse Ox 97 07/05/18 11:43 - Orders/Labs/Meds Orders: Active Orders 24 hr Category Date Time Status Oxygen Therapy [RC] ASDIRECTED Care 07/05/18 10:33 Active RT Aerosol Therapy [RC] ASDIRECTED Care 07/05/18 10:23 Active Labs: Laboratory Tests 07/05/18 07/05/18 Range/Units 10:35 10:35 WBC 5.94 (4.0-11.0) K/uL RBC 4.66 (4.30-5.90) M/uL Hgb 12.8 (12.0-16.0) g/dL Hct 39.3 (36.0-46.0) % MCV 84.3 (80.0-98.0) fL MCH 27.5 (27.0-32.0) pg MCHC 32.6 (31.0-37.0) g/dL RDW Std Deviation 54.2 (28.0-62.0) fl RDW Coeff of Britni 18 H (11.0-15.0) % Plt Count 227 (150-400) K/uL MPV 10.00 (7.40-12.00) fL Neut % (Auto) 51.5 (48.0-80.0) % Lymph % (Auto) 34.3 (16.0-40.0) % Wilkinson % (Auto) 11.3 (0.0-15.0) % Eos % (Auto) 2.7 (0.0-7.0) % Baso % (Auto) 0.2 (0.0-1.5) % Neut # (Auto) 3.1 (1.4-5.7) K/uL Lymph # (Auto) 2.0 (0.6-2.4) K/uL Wilkinson # (Auto) 0.7 (0.0-0.8) K/uL Eos # (Auto) 0.2 (0.0-0.7) K/uL Baso # (Auto) 0.0 (0.0-0.1) K/uL Nucleated RBC % 0.0 /100WBC Nucleated RBCs # 0 K/uL Sodium 142 (136-145) mmol/L Potassium 4.0 (3.5-5.1) mmol/L Chloride 105 (98-107) mmol/L Carbon Dioxide 29.1 (21.0-32.0) mmol/L BUN 9 (7.0-18.0) mg/dL Creatinine 0.9 (0.6-1.0) mg/dL Est Cr Clr Drug Dosing 53.64 mL/min Estimated GFR (MDRD) > 60.0 ml/min Glucose 104 (74-106) mg/dL Calcium 8.7 (8.5-10.1) mg/dL Total Bilirubin 0.6 (0.2-1.0) mg/dL AST 14 L (15-37) IU/L ALT 8 L (14-63) IU/L Alkaline Phosphatase 132 H (46-116) U/L Total Protein 7.1 (6.4-8.2) g/dL Albumin 2.8 L (3.4-5.0) g/dL Globulin 4.3 H (2.6-4.0) g/dL Albumin/Globulin Ratio 0.7 L (0.9-1.6) Meds: Medications Discontinued Medications Generic Name Dose Route Start Last Admin Trade Name Freq PRN Reason Stop Dose Admin Albuterol/Ipratropium 3 ml 07/05/18 10:23 07/05/18 10:32 Duoneb 3.0-0.5 Mg/3 Ml NEB 07/05/18 10:24 3 ml ONETIME ONE Administration Sodium Chloride 1,000 mls @ 999 mls/hr 07/05/18 10:29 07/05/18 10:48 Normal Saline IV 07/05/18 11:29 999 mls/hr STAT ONE Administration Methylprednisolone Sodium Succinate 125 mg 07/05/18 10:28 07/05/18 10:43 Solu-Medrol IM 07/05/18 10:29 Not Given ONETIME ONE Methylprednisolone Sodium Succinate 125 mg 07/05/18 10:33 07/05/18 10:48 Solu-Medrol IVPUSH 07/05/18 10:34 125 mg ONETIME ONE Administration Departure - Departure Time of Disposition: 11:54 Disposition: Home, Self-Care 01 Clinical Impression: COPD exacerbation - Discharge Information Prescriptions: Albuterol Sulfate [Proair Hfa] 8.5 gm IH QID PRN #1 inhaler PRN Reason: Cough Albuterol/Ipratropium [DuoNeb 3.0-0.5 MG/3 ML] 3 ml NEB QID 10 Days #30 neb predniSONE [Prednisone] 10 mg PO BID 5 Days #10 tab.ds.pk Instructions: Chronic Obstructive Pulmonary Disease Exacerbation, [id number] Referrals: PCP,None [Primary Care Provider] - Forms: ED Department Discharge Additional Instructions: The following information is given to patients seen in the emergency department who are being discharged to home. This information is to outline your options for follow-up care. We provide all patients seen in our emergency department with a follow-up referral. The need for follow-up, as well as the timing and circumstances, are variable depending upon the specifics of your emergency department visit. If you don't have a primary care physician on staff, we will provide you with a referral. We always advise you to contact your personal physician following an emergency department visit to inform them of the circumstance of the visit and for follow-up with them and/or the need for any referrals to a consulting specialist. The emergency department will also refer you to a specialist when appropriate. This referral assures that you have the opportunity for follow-up care with a specialist. All of these measure are taken in an effort to provide you with optimal care, which includes your follow-up. Under all circumstances we always encourage you to contact your private physician who remains a resource for coordinating your care. When calling for follow-up care, please make the office aware that this follow-up is from your recent emergency room visit. If for any reason you are refused follow-up, please contact the [facility] Emergency Department at and asked to speak to the emergency department charge nurse. [facility] [address] [place] [id number] [place] [address] 1. Take medications as prescribed. 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 2. Follow-up with her primary care provider as discussed. 3. Return to the ED as needed and as discussed. - My Orders Last 24 Hours: My Active Orders 07/05/18 10:23 RT Aerosol Therapy [RC] ASDIRECTED 07/05/18 10:33 Oxygen Therapy [RC] ASDIRECTED - Assessment/Plan Last 24 Hours: My Active Orders 07/05/18 10:23 RT Aerosol Therapy [RC] ASDIRECTED 07/05/18 10:33 Oxygen Therapy [RC] ASDIRECTED
--- NOTE | 2018-07-05 11:28 | CR ---
EXAMINATION: Two-view chest (PA and Lateral views). HISTORY: Shortness of breath. FINDINGS: The trachea is midline. The cardiomediastinal silhouette is within normal limits. No pulmonary infiltrates, effusions or pneumothorax. Mild hyperinflation. Osseous structures appear osteopenic. IMPRESSION: No acute cardiopulmonary process.
[2018-07-05 11:30] LABS: CHLORIDE,CL 105 mmol/L (98-107); SODIUM,NA 142 mmol/L (136-145)
[2018-07-05 12:27] VITALS: BP 169/81
== END 2018-07-05 12:00 | disposition home or self-care (01) ==
LOC: MW.ED 10:14
DX: J44.1 Chronic obstructive pulmonary disease with (acute) exacerbation (principal); I10 Essential (primary) hypertension; F41.9 Anxiety disorder, unspecified; Z79.899 Other long term (current) drug therapy; Z88.5 Allergy status to narcotic agent
CPT/HCPCS: 36415; 71046; 80053; 85025; 87804; 94640; 96361; 96374; 99283; J2930; J7040; 99284; J7620-GY

== ENCOUNTER 2018-08-10 11:54 | Emergency (ER) | payer MEDICARE, OTHER ==
--- NOTE | 2018-08-10 12:39 | EDM.PDOC ---
ED HPI GENERAL MEDICAL PROBLEM - General Chief Complaint: ENT Problem Stated Complaint: SORE THROAT Time Seen by Provider: 08/10/18 11:55 Source of Information: Reports: Patient History Limitations: Reports: No Limitations - History of Present Illness INITIAL COMMENTS - FREE TEXT/NARRATIVE: HISTORY AND PHYSICAL: History of present illness: Patient is a 78-year-old female presents to the ED today with concern of sore throat 2 weeks. Patient states she has had strep in the past and that this feels similar. Patient states she has been using cough drops with relief of symptoms. Patient states she came in to the ED today because she was concern going into a week and she may have strep throat need an antibiotic. Patient denies any difficulty swallowing or breathing. Patient denies any other symptoms at this time. Patient denies fever, chills, chest pain, shortness of breath, or cough. Denies headache, neck stiff ness, change in vision, syncope, or near syncope. Denies nausea, vomiting, abdominal pain, diarrhea, constipation, or dysuria. Has not noted any blood in urine or stool. Patient has been eating and drinking appropriately. Review of systems: As per history of present illness and below otherwise all systems reviewed and negative. Past medical history: As per history of present illness and as reviewed below otherwise noncontributory. Surgical history: As per history of present illness and as reviewed below otherwise noncontributory. Social history: See social history for further information Family history: As per history of present illness and as reviewed below otherwise noncontributory. Physical exam: General: Patient is alert, oriented, and in no acute distress. Patient sitting comfortably on exam table. HEENT: Atraumatic, normocephalic, pupils equal and reactive bilaterally, negative for conjunctival pallor or scleral icterus, mucous membranes moist, TMs normal bilaterally, throat is mildly erythematous, neck supple, nontender, trachea midline. No drooling or trismus noted. No meningeal signs. No hot potato voice noted. Lungs: Clear to auscultation, breath sounds equal bilaterally, chest nontender. Heart: S1S2, regular rate and rhythm without overt murmur Abdomen: Soft, nondistended, nontender. Negative for masses or hepatosplenomegaly. Negative for costovertebral tenderness. Pelvis: Stable nontender. Genitourinary: Deferred. Rectal: Deferred. Skin: Intact, warm, dry. No lesions or rashes noted. Extremities: Atraumatic, negative for cords or calf pain. Neurovascular unremarkable. Neuro: Awake, alert, oriented. Cranial nerves II through XII unremarkable. Cerebellum unremarkable. Motor and sensory unremarkable throughout. Exam nonfocal. Notes: Discussed the importance for follow-up with primary care provider. Voices understanding and is agreeable to plan of care. Denies any further questions or concerns at this time. Diagnostics: Strep Therapeutics: None Prescription: None Impression: Pharyngitis, unspecified Plan: 1. You can alternate ibuprofen and Tylenol as directed for pain and discomfort. You can use [id number] lozenges for symptomatic relief. 2. Follow-up with the primary care provider as discussed. 3. Return to the ED as needed and as discussed. Definitive disposition and diagnosis as appropriate pending reevaluation and review of above. Throat Pain Score (Numeric/FACES): 6 - Related Data Allergies Allergy/AdvReac Type Severity Reaction Status Date / Time codeine Allergy Dizziness Verified 08/10/18 12:10 Home Meds: Home Meds traZODone 200 mg PO BEDTIME 04/11/15 [History] Metoprolol Succinate [Toprol XL] 25 mg PO DAILY 01/09/17 [History] Albuterol Sulfate [Proair Hfa] 8.5 gm IH QID PRN #1 inhaler 07/05/18 [Rx] Albuterol/Ipratropium [DuoNeb 3.0-0.5 MG/3 ML] 3 ml NEB QID 10 Days #30 neb 02/12 [Rx] Sertraline [Zoloft] 25 mg PO DAILY 07/05/18 [History] predniSONE [Prednisone] 10 mg PO BID 5 Days #10 tab.ds.pk 07/05/18 [Rx] Past Medical History HEENT History: Reports: Hard of Hearing Cardiovascular History: Reports: None, Hypertension, SOB on Exertion Respiratory History: Reports: COPD Gastrointestinal History: Reports: Cholelithiasis Genitourinary History: Reports: None INTERNATIONAL REPRESENTATIVE History: Reports: None Musculoskeletal History: Reports: Fibromyalgia Neurological History: Reports: None Psychiatric History: Reports: Anxiety Endocrine/Metabolic History: Reports: None Hematologic History: Reports: None Immunologic History: Reports: None Oncologic (Cancer) History: Reports: None Dermatologic History: Reports: None - Infectious Disease History Infectious Disease History: Reports: Measles Other Infectious Disease History: childhood - Past Surgical History Head Surgeries/Procedures: Reports: None Respiratory Surgical History: Reports: None GI Surgical History: Reports: Cholecystectomy Other GI Surgeries/Procedures: Stomach staple Social & Family History - Family History Family Medical History: Noncontributory HEENT: Reports: None Cardiac: Reports: [place] Respiratory: Reports: None GI: Reports: None : Reports: None OBGYN: Reports: None Musculoskeletal: Reports: None Neurological: Reports: None Psychiatric: Reports: None Endocrine/Metabolic: Reports: None Hematologic: Reports: None Immunologic: Reports: None Dermatologic: Reports: None Oncologic: Reports: None - Tobacco Use Smoking Status *Q: Never Smoker - Caffeine Use Caffeine Use: Reports: Coffee Other Caffeine Use: 2 cups/day Caffeine Use Comment: 2 drinks/day - Recreational Drug Use Recreational Drug Use: No - Living Situation & Occupation Living situation: Reports: Occupation: Retired ED ROS ENT - Review of Systems Review Of Systems: ROS reveals no pertinent complaints other than HPI. ED EXAM, ENT - Physical Exam Exam: See Below (see dictation) Course - Vital Signs Last Recorded V/S: Last Vital Signs Temp 35.9 C 08/10/18 12:04 Pulse 64 08/10/18 12:04 Resp 18 08/10/18 12:04 BP 169/62 H 08/10/18 12:04 Pulse Ox 94 L 08/10/18 12:04 - Orders/Labs/Meds Orders: Active Orders 24 hr Category Date Time Status CULTURE STREP A CONFIRMATION [RM] Stat Lab 08/10/18 12:21 Results STREP SCRN A RAPID W CULT CONF [RM] Stat Lab 08/10/18 12:21 Results Departure - Departure Time of Disposition: 12:38 Disposition: Home, Self-Care 01 Clinical Impression: Pharyngitis Qualifiers: Pharyngitis/tonsillitis etiology: unspecified etiology Qualified Code(s): J02.9 - Acute pharyngitis, unspecified - Discharge Information Instructions: Pharyngitis, [id number] Referrals: PCP,Unknown [Primary Care Provider] - Additional Instructions: The following information is given to patients seen in the emergency department who are being discharged to home. This information is to outline your options for follow-up care. We provide all patients seen in our emergency department with a follow-up referral. The need for follow-up, as well as the timing and circumstances, are variable depending upon the specifics of your emergency department visit. If you don't have a primary care physician on staff, we will provide you with a referral. We always advise you to contact your personal physician following an emergency department visit to inform them of the circumstance of the visit and for follow-up with them and/or the need for any referrals to a consulting specialist. The emergency department will also refer you to a specialist when appropriate. This referral assures that you have the opportunity for follow-up care with a specialist. All of these measure are taken in an effort to provide you with optimal care, which includes your follow-up. Under all circumstances we always encourage you to contact your private physician who remains a resource for coordinating your care. When calling for follow-up care, please make the office aware that this follow-up is from your recent emergency room visit. If for any reason you are refused follow-up, please contact the [facility] Emergency Department at and asked to speak to the emergency department charge nurse. [facility] [address] [place] [address] [address] 1. You can alternate ibuprofen and Tylenol as directed for pain and discomfort. You can use [id number] lozenges for symptomatic relief. 2. Follow-up with the primary care provider as discussed. 3. Return to the ED as needed and as discussed. - My Orders Last 24 Hours: My Active Orders 08/10/18 12:21 CULTURE STREP A CONFIRMATION [RM] Stat STREP SCRN A RAPID W CULT CONF [RM] Stat - Assessment/Plan Last 24 Hours: My Active Orders 08/10/18 12:21 CULTURE STREP A CONFIRMATION [RM] Stat STREP SCRN A RAPID W CULT CONF [RM] Stat
[2018-08-10 12:54] VITALS: BP 148/68
== END 2018-08-10 12:54 | disposition home or self-care (01) ==
LOC: MW.ED 11:54
DX: J02.9 Acute pharyngitis, unspecified (principal); I10 Essential (primary) hypertension; J44.9 Chronic obstructive pulmonary disease, unspecified; F41.9 Anxiety disorder, unspecified; Z88.5 Allergy status to narcotic agent; Z79.899 Other long term (current) drug therapy
CPT/HCPCS: 87081; 87880-QW; 99282; 99283

== ENCOUNTER 2018-08-20 15:10 | Emergency (ER) | payer MEDICARE, OTHER ==
[2018-08-20 15:17] VITALS: BP 171/87
--- NOTE | 2018-08-20 15:26 | EDM.PDOC ---
ED HPI GENERAL MEDICAL PROBLEM - General Chief Complaint: Back Pain or Injury Stated Complaint: AMB Time Seen by Provider: 08/20/18 15:26 Source of Information: Reports: Patient - History of Present Illness INITIAL COMMENTS - FREE TEXT/NARRATIVE: HISTORY AND PHYSICAL: History of present illness: [Patient presents with low back pain she has a long history of chronic low back pain secondary to a fall as a teenager, he has had low back surgery as a teenager, many imaging modalities on file patient is currently rate using UA or lumbar spine denies injury or trauma fever nausea vomiting chills sweats ] Review of systems: As per history of present illness and below otherwise all systems reviewed and negative. Past medical history: As per history of present illness and as reviewed below otherwise noncontributory. Surgical history: As per history of present illness and as reviewed below otherwise noncontributory. Social history: No reported history of drug or alcohol abuse. Family history: As per history of present illness and as reviewed below otherwise noncontributory. Physical exam: HEENT: Atraumatic, normocephalic, pupils reactive, negative for conjunctival pallor or scleral icterus, mucous membranes moist, throat clear, neck supple, nontender, trachea midline. Lungs: Clear to auscultation, breath sounds equal bilaterally, chest nontender. Heart: S1S2, regular, negative for clicks, rubs, or JVD. Abdomen: Soft, nondistended, nontender. Negative for masses or hepatosplenomegaly. Negative for costovertebral tenderness. Pelvis: Stable nontender. Genitourinary: Deferred. Rectal: Deferred. Extremities: Atraumatic, negative for cords or calf pain. Neurovascular unremarkable. Neuro: Awake, alert, oriented. Cranial nerves II through XII unremarkable. Cerebellum unremarkable. Motor and sensory unremarkable throughout. Exam nonfocal. Diagnostics: [Patient refused any diagnostics imaging or lab ] Therapeutics: Patient states she does not know why she is here her neighbor panicked and called EMS she has pain medication at home and she is refusing diagnostics or prescriptions POA was called and they recommended she return home by taxicab ] Impression: [Back pain ] Definitive disposition and diagnosis as appropriate pending reevaluation and review of above. Lower Back Pain Score (Numeric/FACES): 8 - Related Data Allergies Allergy/AdvReac Type Severity Reaction Status Date / Time codeine Allergy Dizziness Verified 08/20/18 15:17 Home Meds: Home Meds traZODone 200 mg PO BEDTIME 04/11/15 [History] Metoprolol Succinate [Toprol XL] 25 mg PO DAILY 01/09/17 [History] Albuterol Sulfate [Proair Hfa] 8.5 gm IH QID PRN #1 inhaler 07/05/18 [Rx] Albuterol/Ipratropium [DuoNeb 3.0-0.5 MG/3 ML] 3 ml NEB QID 10 Days #30 neb 02/12 [Rx] Sertraline [Zoloft] 25 mg PO DAILY 07/05/18 [History] predniSONE [Prednisone] 10 mg PO BID 5 Days #10 tab.ds.pk 07/05/18 [Rx] Aspirin [Adult Low Dose Aspirin EC] 81 mg PO DAILY 08/20/18 [History] Past Medical History HEENT History: Reports: Hard of Hearing Cardiovascular History: Reports: None, Hypertension, SOB on Exertion Respiratory History: Reports: COPD Gastrointestinal History: Reports: Cholelithiasis Genitourinary History: Reports: None TOPOGRAPHICAL ENGINEER 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: Reports: None Musculoskeletal History: Reports: Fibromyalgia Neurological History: Reports: None Psychiatric History: Reports: Anxiety Endocrine/Metabolic History: Reports: None Hematologic History: Reports: None Immunologic History: Reports: None Oncologic (Cancer) History: Reports: None Dermatologic History: Reports: None - Infectious Disease History Infectious Disease History: Reports: Chicken Pox, Measles, Mumps, Shingles Other Infectious Disease History: childhood - Past Surgical History Head Surgeries/Procedures: Reports: None Respiratory Surgical History: Reports: None GI Surgical History: Reports: Cholecystectomy Other GI Surgeries/Procedures: Stomach staple Social & Family History - Family History Family Medical History: Noncontributory HEENT: Reports: None Cardiac: Reports: [place] Respiratory: Reports: None GI: Reports: None : Reports: None OBGYN: Reports: None Musculoskeletal: Reports: None Neurological: Reports: None Psychiatric: Reports: None Endocrine/Metabolic: Reports: None Hematologic: Reports: None Immunologic: Reports: None Dermatologic: Reports: None Oncologic: Reports: None - Tobacco Use Smoking Status *Q: Never Smoker - Caffeine Use Caffeine Use: Reports: Coffee Other Caffeine Use: 2 cups/day Caffeine Use Comment: 2 drinks/day - Recreational Drug Use Recreational Drug Use: No - Living Situation & Occupation Living situation: Reports: Occupation: Retired ED ROS GENERAL - Review of Systems Review Of Systems: See Below ED EXAM, GENERAL - Physical Exam Exam: See Below Course - Vital Signs Last Recorded V/S: Last Vital Signs Temp 97.7 F 08/20/18 15:15 Pulse 75 08/20/18 15:15 Resp 18 08/20/18 15:15 BP 171/87 H 08/20/18 15:15 Pulse Ox 94 L 08/20/18 15:15 - Orders/Labs/Meds Orders: Active Orders 24 hr Category Date Time Status UA RFX ONI AND CULT IF INDIC [URIN] Stat Lab 08/20/18 15:26 Ordered Departure - Departure Time of Disposition: 15:50 Disposition: Home, Self-Care 01 Condition: Good Clinical Impression: Chronic low back pain - Discharge Information Referrals: PCP,Unknown [Primary Care Provider] - Forms: ED Department Discharge Additional Instructions: The following information is given to patients seen in the emergency department who are being discharged to home. This information is to outline your options for follow-up care. We provide all patients seen in our emergency department with a follow-up referral. The need for follow-up, as well as the timing and circumstances, are variable depending upon the specifics of your emergency department visit. If you don't have a primary care physician on staff, we will provide you with a referral. We always advise you to contact your personal physician following an emergency department visit to inform them of the circumstance of the visit and for follow-up with them and/or the need for any referrals to a consulting specialist. The emergency department will also refer you to a specialist when appropriate. This referral assures that you have the opportunity for follow-up care with a specialist. All of these measure are taken in an effort to provide you with optimal care, which includes your follow-up. Under all circumstances we always encourage you to contact your private physician who remains a resource for coordinating your care. When calling for follow-up care, please make the office aware that this follow-up is from your recent emergency room visit. If for any reason you are refused follow-up, please contact the [facility] emergency department at and asked to speak to the emergency department charge nurse. - My Orders Last 24 Hours: My Active Orders 08/20/18 15:26 UA RFX ONI AND CULT IF INDIC [URIN] Stat - Assessment/Plan Last 24 Hours: My Active Orders 08/20/18 15:26 UA RFX ONI AND CULT IF INDIC [URIN] Stat
== END 2018-08-20 16:25 | disposition home or self-care (01) ==
LOC: MW.ED 15:10
DX: M54.5 Low back pain (principal); G89.29 Other chronic pain; I10 Essential (primary) hypertension; J44.9 Chronic obstructive pulmonary disease, unspecified; F41.9 Anxiety disorder, unspecified; Z79.899 Other long term (current) drug therapy; Z88.5 Allergy status to narcotic agent
CPT/HCPCS: 99283

== ENCOUNTER 2018-08-30 10:11 | Emergency (ER) | payer MEDICARE, OTHER ==
[2018-08-30] MEDS ORDERED: Albuterol/Ipratropium 3.0-0.5 MG/3 ML Neb Soln NEB ONE (10:25)
--- NOTE | 2018-08-30 10:29 | EDM.PDOC ---
ED HPI GENERAL MEDICAL PROBLEM - General Chief Complaint: General Stated Complaint: WEAKNESS Time Seen by Provider: 08/30/18 10:14 Source of Information: Reports: Patient, Family History Limitations: Reports: No Limitations - History of Present Illness INITIAL COMMENTS - FREE TEXT/NARRATIVE: HISTORY AND PHYSICAL: History of present illness: Patient is a 78-year-old female who presents to the ED today with her brother for concern of generalized weakness over the past couple weeks. Mother states that last night while in the shower, patient had begun to fall and was assisted to the ground by the person that helps her base. Patient does complain of right- sided rib pain following the assist. Father and patient state she did not hit her head or lose consciousness. Patient states she has a history of COPD and does feel a little bit more short of breath than usual. Father states he has noticed a decline in her ability to perform her own ADLs at home and he feels as if he cannot take care of her much any longer. Patient denies fever, chills, chest pain, shortness of breath, or cough. Denies headache, neck stiff ness, change in vision, syncope, or near syncope. Denies nausea, vomiting, abdominal pain, diarrhea, constipation, or dysuria. Has not noted any blood in urine or stool. Patient has been eating and drinking appropriately. Review of systems: As per history of present illness and below otherwise all systems reviewed and negative. Past medical history: As per history of present illness and as reviewed below otherwise noncontributory. Surgical history: As per history of present illness and as reviewed below otherwise noncontributory. Social history: See social history for further information Family history: As per history of present illness and as reviewed below otherwise noncontributory. Physical exam: Exam is limited due to body habitus. General: Patient is alert, oriented, and in no acute distress. Patient laying comfortably on exam table. HEENT: Atraumatic, normocephalic, pupils equal and reactive bilaterally, negative for conjunctival pallor or scleral icterus, mucous membranes dry and tacky, TMs normal bilaterally, throat clear, neck supple, nontender, trachea midline. No drooling or trismus noted. No meningeal signs. No hot potato voice noted. Lungs: Clear to auscultation, breath sounds equal bilaterally. Patient does have moderate to severe pain of the generalized right rib area without bruising , stepoffs, crepitus on palpation. Heart: S1S2, regular rate and rhythm with Grade 3 systolic ejection murmur best heard at RUSB Abdomen: Obese, Soft, nondistended, nontender. Negative for masses or hepatosplenomegaly. Negative for costovertebral tenderness. Pelvis: Stable nontender. Genitourinary: Deferred. Rectal: Deferred. Skin: Intact, warm, dry. No lesions or rashes noted. Extremities: Atraumatic, negative for cords or calf pain. Neurovascular unremarkable. Neuro: Awake, alert, oriented. Cranial nerves II through XII unremarkable. Cerebellum unremarkable. Motor and sensory unremarkable throughout. Exam nonfocal. Notes: Dr. Cardozo verbally involved in patient care. Patient adamant about leaving ER. Offered admission for observation due to falls / dehydration but patient adamantly declines requesting immediate leave from ER. Voices understanding and is agreeable to plan of care. Denies any further questions or concerns at this time. Diagnostics: CBC, CMP, UA (patient declines leaving a urine), chest x-ray, rib x-ray ( patient declines this XR), EKG, troponin, RUQ ultrasound Therapeutics: Saline, DuoNeb Prescription: None Impression: Dehydration RUQ pain / injury Fall Risk Self Care deficit, bathing and hygiene Plan: 1. Alternate ibuprofen or Tylenol as directed for pain and discomfort. 2. Follow-up with her primary care provider as discussed. Return to the ED as needed and as discussed. Definitive disposition and diagnosis as appropriate pending reevaluation and review of above. Right Abdomen Pain Score (Numeric/FACES): 7 - Related Data Allergies Allergy/AdvReac Type Severity Reaction Status Date / Time codeine Allergy Dizziness Verified 08/30/18 10:15 Home Meds: Home Meds traZODone 200 mg PO BEDTIME 04/11/15 [History] Metoprolol Succinate [Toprol XL] 25 mg PO DAILY 01/09/17 [History] Sertraline [Zoloft] 25 mg PO DAILY 07/05/18 [History] Aspirin [Adult Low Dose Aspirin EC] 81 mg PO DAILY 08/20/18 [History] Past Medical History HEENT History: Reports: Hard of Hearing Cardiovascular History: Reports: None, Hypertension, SOB on Exertion Respiratory History: Reports: COPD Gastrointestinal History: Reports: Cholelithiasis Genitourinary History: Reports: None DIRECTOR 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: Reports: None Musculoskeletal History: Reports: Fibromyalgia Neurological History: Reports: None Psychiatric History: Reports: Anxiety Endocrine/Metabolic History: Reports: None Hematologic History: Reports: None Immunologic History: Reports: None Oncologic (Cancer) History: Reports: None Dermatologic History: Reports: None - Infectious Disease History Infectious Disease History: Reports: Chicken Pox, Measles, Mumps Other Infectious Disease History: childhood - Past Surgical History Head Surgeries/Procedures: Reports: None Respiratory Surgical History: Reports: None GI Surgical History: Reports: Cholecystectomy Other GI Surgeries/Procedures: Stomach staple Social & Family History - Family History Family Medical History: Noncontributory HEENT: Reports: None Cardiac: Reports: [place] Respiratory: Reports: None GI: Reports: None : Reports: None OBGYN: Reports: None Musculoskeletal: Reports: None Neurological: Reports: None Psychiatric: Reports: None Endocrine/Metabolic: Reports: None Hematologic: Reports: None Immunologic: Reports: None Dermatologic: Reports: None Oncologic: Reports: None - Tobacco Use Smoking Status *Q: Never Smoker - Caffeine Use Caffeine Use: Reports: Coffee Other Caffeine Use: 2 cups/day Caffeine Use Comment: 2 drinks/day - Recreational Drug Use Recreational Drug Use: No - Living Situation & Occupation Living situation: Reports: Occupation: Retired ED ROS GENERAL - Review of Systems Review Of Systems: ROS reveals no pertinent complaints other than HPI. ED EXAM, GENERAL - Physical Exam Exam: See Below (see dictation) Course - Vital Signs Last Recorded V/S: Last Vital Signs Temp 36.9 C 08/30/18 10:13 Pulse 84 08/30/18 10:13 Resp 18 08/30/18 10:13 BP 145/74 H 08/30/18 10:13 Pulse Ox 93 L 08/30/18 10:13 - Orders/Labs/Meds Orders: Active Orders 24 hr Category Date Time Status EKG Documentation Completion [RC] STAT Care 08/30/18 10:17 Active RT Aerosol Therapy [RC] ASDIRECTED Care 08/30/18 10:25 Active UA RFX ONI AND CULT IF INDIC [URIN] Stat Lab 08/30/18 10:30 Ordered Labs: Laboratory Tests 08/30/18 08/30/18 Range/Units 10:32 10:32 WBC 9.10 (4.0-11.0) K/uL RBC 4.81 (4.30-5.90) M/uL Hgb 13.1 (12.0-16.0) g/dL Hct 41.1 (36.0-46.0) % MCV 85.4 (80.0-98.0) fL MCH 27.2 (27.0-32.0) pg MCHC 31.9 (31.0-37.0) g/dL RDW Std Deviation 55.2 (28.0-62.0) fl RDW Coeff of Britni 18 H (11.0-15.0) % Plt Count 256 (150-400) K/uL MPV 10.10 (7.40-12.00) fL Neut % (Auto) 76.3 (48.0-80.0) % Lymph % (Auto) 12.3 L (16.0-40.0) % [place] % (Auto) 10.4 (0.0-15.0) % Eos % (Auto) 0.9 (0.0-7.0) % Baso % (Auto) 0.1 (0.0-1.5) % Neut # (Auto) 6.9 H (1.4-5.7) K/uL Lymph # (Auto) 1.1 (0.6-2.4) K/uL [place] # (Auto) 1.0 H (0.0-0.8) K/uL Eos # (Auto) 0.1 (0.0-0.7) K/uL Baso # (Auto) 0.0 (0.0-0.1) K/uL Nucleated RBC % 0.0 /100WBC Nucleated RBCs # 0 K/uL Sodium 138 (136-145) mmol/L Potassium 3.5 (3.5-5.1) mmol/L Chloride 103 (98-107) mmol/L Carbon Dioxide 26.3 (21.0-32.0) mmol/L BUN 19 H (7.0-18.0) mg/dL Creatinine 0.9 (0.6-1.0) mg/dL Est Cr Clr Drug Dosing 54.71 mL/min Estimated GFR (MDRD) > 60.0 ml/min Glucose 128 H (74-106) mg/dL Calcium 8.9 (8.5-10.1) mg/dL Total Bilirubin 1.2 H (0.2-1.0) mg/dL AST 20 (15-37) IU/L ALT 12 L (14-63) IU/L Alkaline Phosphatase 161 H (46-116) U/L Troponin I < 0.050 (0.000-0.056) ng/mL Total Protein 7.2 (6.4-8.2) g/dL Albumin 3.0 L (3.4-5.0) g/dL Globulin 4.2 H (2.6-4.0) g/dL Albumin/Globulin Ratio 0.7 L (0.9-1.6) Meds: Medications Discontinued Medications Generic Name Dose Route Start Last Admin Trade Name Freq PRN Reason Stop Dose Admin Albuterol/Ipratropium 3 ml 08/30/18 10:25 08/30/18 10:31 Duoneb 3.0-0.5 Mg/3 Ml NEB 08/30/18 10:26 3 ml ONETIME ONE Administration Sodium Chloride 1,000 mls @ 999 mls/hr 08/30/18 10:24 08/30/18 10:34 Normal Saline IV 08/30/18 11:24 999 mls/hr STAT ONE Administration Departure - Departure Time of Disposition: 12:43 Disposition: Home, Self-Care 01 Clinical Impression: Dehydration, RUQ pain, Rib injury, Risk for falls, Self-care deficit for bathing and hygiene - Discharge Information Referrals: PCP,Unknown [Primary Care Provider] - Forms: ED Department Discharge Additional Instructions: The following information is given to patients seen in the emergency department who are being discharged to home. This information is to outline your options for follow-up care. We provide all patients seen in our emergency department with a follow-up referral. The need for follow-up, as well as the timing and circumstances, are variable depending upon the specifics of your emergency department visit. If you don't have a primary care physician on staff, we will provide you with a referral. We always advise you to contact your personal physician following an emergency department visit to inform them of the circumstance of the visit and for follow-up with them and/or the need for any referrals to a consulting specialist. The emergency department will also refer you to a specialist when appropriate. This referral assures that you have the opportunity for follow-up care with a specialist. All of these measure are taken in an effort to provide you with optimal care, which includes your follow-up. Under all circumstances we always encourage you to contact your private physician who remains a resource for coordinating your care. When calling for follow-up care, please make the office aware that this follow-up is from your recent emergency room visit. If for any reason you are refused follow-up, please contact the [facility] Emergency Department at and asked to speak to the emergency department charge nurse. [facility] [address] [place] [id number] [facility] [address] [place] [id number] 1. Alternate ibuprofen or Tylenol as directed for pain and discomfort. 2. Follow-up with her primary care provider as discussed. Return to the ED as needed and as discussed. - My Orders Last 24 Hours: My Active Orders 08/30/18 10:17 EKG Documentation Completion [RC] STAT 08/30/18 10:25 RT Aerosol Therapy [RC] ASDIRECTED 08/30/18 10:30 UA RFX ONI AND CULT IF INDIC [URIN] Stat - Assessment/Plan Last 24 Hours: My Active Orders 08/30/18 10:17 EKG Documentation Completion [RC] STAT 08/30/18 10:25 RT Aerosol Therapy [RC] ASDIRECTED 08/30/18 10:30 UA RFX ONI AND CULT IF INDIC [URIN] Stat
[2018-08-30] MEDS: Sodium Chloride 0.9% 1,000 ML IV ONE ×2 (10:32→10:34)
[2018-08-30 11:13] LABS: CHLORIDE,CL 103 mmol/L (98-107); SODIUM,NA 138 mmol/L (136-145)
--- NOTE | 2018-08-30 12:07 | CR ---
EXAM DATE: 08/30/18 PATIENT'S AGE: 78 Patient: KATIE DICKENS Facility: [facility] Site Site : [id number] Study: XRay-Chest [id number] 11:15:03 AM Ordering Physician: OSMANY BROWN Final Report: CHEST 1 VIEW AP INDICATION: Injury COMPARISON: Two-view chest 07/05/2018 IMPRESSION: Normal heart size and vascularity. Nonspecific mild linear atelectasis. No pneumothorax. FINDINGS: Diminished lung volumes in the interval with minimal linear areas of probable platelike basilar atelectasis or scarring. No new pulmonary consolidation. Crowding of the central bronchovascular markings. Dictated by Adelfo Jonas MD @ Aug 30 2018 11:33AM Signed by: Adelfo Jonas MD @08/30/2018 11:35:25 AM (Electronic Signature) Report Signed by Proxy. MTDStalin
--- NOTE | 2018-08-30 12:38 | US ---
INDICATION : Elevated bilirubin. Right upper quadrant pain TECHNIQUE : Ultrasound of the abdomen limited. Grayscale and color doppler. COMPARISON : No comparison FINDINGS: Liver: No focal mass. No intrahepatic biliary dilatation. Coarsening of the hepatic parenchymal echotexture. Gallbladder: Surgically absent. Common bile duct: 3 mm. Right kidney: The minimally distended right renal pelvis. Right kidney 9 cm. IMPRESSION: 1. Absent gallbladder. Normal caliber common bile duct. 2. Possible parenchymal alterations of the liver from parenchymal disease with coarsening of the echo pattern but scan quality is suboptimal. 3. Minimal nonspecific fluid right renal pelvis limited visualization right kidney. Dictated by Adelfo Jonas MD @ Aug 30 2018 12:36PM Signed by Dr. Adelfo Jonas @ Aug 30 2018 12:38PM
[2018-08-30 12:57] VITALS: BP 123/69
== END 2018-08-30 12:57 | disposition home or self-care (01) ==
LOC: MW.ED 10:11
DX: S29.9XXA Unspecified injury of thorax, initial encounter (principal); E86.0 Dehydration; I10 Essential (primary) hypertension; J44.9 Chronic obstructive pulmonary disease, unspecified; F41.9 Anxiety disorder, unspecified; Z79.82 Long term (current) use of aspirin; Z79.899 Other long term (current) drug therapy; Z88.5 Allergy status to narcotic agent; X58.XXXA Exposure to other specified factors, initial encounter
CPT/HCPCS: 36415; 71045; 76705; 80053; 84484; 85025; 93005; 94640; 96360; 99285; J7040; 99284; J7620-GY

== ENCOUNTER 2018-08-31 18:18 | Emergency (ER) | payer OTHER ==
--- NOTE | 2018-08-31 18:32 | EDM.PDOC ---
<Holli Angela - Last Filed: 08/31/18 19:38> ED HPI GENERAL MEDICAL PROBLEM - General Chief Complaint: General Stated Complaint: PAIN IN RT SIDE Time Seen by Provider: 08/31/18 18:25 - History of Present Illness INITIAL COMMENTS - FREE TEXT/NARRATIVE: Dr. Angela dictating addendum note as this case was endorsed to me at 7:30 PM. The UA was reviewed and revealed no signs of abnormality in the CT scan results were also reviewed. There was no sign of any acute abdominal problem but there was a small hiatal hernia as well as a remote compression fracture of the thoracic spine neither of which are the patient's symptoms. Patient also had a left adnexal cystic mass that needed further characterization which again is not the etiology of the patient's pain as her discomfort is on the right side. We will advise follow up with her provider in the clinic for further evaluation of this. I will prescribe Bentyl for home and advised close follow-up pushing hydration and reasons to return to the ED. Impression: Abdominal pain, incidental left adnexal cystic mass etiology unclear on CAT scan - Related Data Allergies Allergy/AdvReac Type Severity Reaction Status Date / Time codeine Allergy Dizziness Verified 08/31/18 18:24 Home Meds: Home Meds traZODone 200 mg PO BEDTIME 04/11/15 [History] Metoprolol Succinate [Toprol XL] 25 mg PO DAILY 01/09/17 [History] Sertraline [Zoloft] 25 mg PO DAILY 07/05/18 [History] Aspirin [Adult Low Dose Aspirin EC] 81 mg PO DAILY 08/20/18 [History] ED ROS GENERAL - Review of Systems Review Of Systems: ROS reveals no pertinent complaints other than HPI. ED EXAM, GENERAL - Physical Exam Exam: See Below (See dictation) Course - Vital Signs Last Recorded V/S: Last Vital Signs Temp 98.2 F 08/31/18 20:00 Pulse 78 08/31/18 20:00 Resp 18 08/31/18 20:00 BP 129/61 08/31/18 20:00 Pulse Ox 95 08/31/18 20:00 - Orders/Labs/Meds Orders: Active Orders 24 hr Category Date Time Status Saline Lock Insert [OM.PC] Stat Oth 08/31/18 18:32 Ordered Labs: Laboratory Tests 0608/31/18 08/31/18 Range/Units 18:36 18:36 19:20 WBC 7.62 (4.0-11.0) K/uL RBC 4.64 (4.30-5.90) M/uL Hgb 12.8 (12.0-16.0) g/dL Hct 39.5 (36.0-46.0) % MCV 85.1 (80.0-98.0) fL MCH 27.6 (27.0-32.0) pg MCHC 32.4 (31.0-37.0) g/dL RDW Std Deviation 56.9 (28.0-62.0) fl RDW Coeff of Britni 18 H (11.0-15.0) % Plt Count 264 (150-400) K/uL MPV 10.20 (7.40-12.00) fL Neut % (Auto) 54.5 (48.0-80.0) % Lymph % (Auto) 26.5 (16.0-40.0) % Eagle % (Auto) 14.2 (0.0-15.0) % Eos % (Auto) 4.7 (0.0-7.0) % Baso % (Auto) 0.1 (0.0-1.5) % Neut # (Auto) 4.2 (1.4-5.7) K/uL Lymph # (Auto) 2.0 (0.6-2.4) K/uL Eagle # (Auto) 1.1 H (0.0-0.8) K/uL Eos # (Auto) 0.4 (0.0-0.7) K/uL Baso # (Auto) 0.0 (0.0-0.1) K/uL Nucleated RBC % 0.0 /100WBC Nucleated RBCs # 0 K/uL Sodium 140 (136-145) mmol/L Potassium 3.3 L (3.5-5.1) mmol/L Chloride 105 (98-107) mmol/L Carbon Dioxide 27.9 (21.0-32.0) mmol/L BUN 18 (7.0-18.0) mg/dL Creatinine 0.8 (0.6-1.0) mg/dL Est Cr Clr Drug Dosing 61.55 mL/min Estimated GFR (MDRD) > 60.0 ml/min Glucose 109 H (74-106) mg/dL Calcium 8.7 (8.5-10.1) mg/dL Total Bilirubin 1.1 H (0.2-1.0) mg/dL AST 19 (15-37) IU/L ALT 15 (14-63) IU/L Alkaline Phosphatase 141 H (46-116) U/L Total Protein 7.1 (6.4-8.2) g/dL Albumin 2.9 L (3.4-5.0) g/dL Globulin 4.2 H (2.6-4.0) g/dL Albumin/Globulin Ratio 0.7 L (0.9-1.6) Lipase 61 L (73-393) U/L Urine Color YELLOW Urine Appearance CLEAR Urine pH 5.0 (5.0-8.0) Ur Specific Elco 1.025 (1.001-1.035) Urine Protein NEGATIVE (NEGATIVE) mg/dL Urine Glucose (UA) NEGATIVE (NEGATIVE) mg/dL Urine Ketones NEGATIVE (NEGATIVE) mg/dL Urine Occult Blood NEGATIVE (NEGATIVE) Urine Nitrite NEGATIVE (NEGATIVE) Urine Bilirubin NEGATIVE (NEGATIVE) Urine Urobilinogen 0.2 (<2.0) EU/dL Ur Leukocyte Esterase NEGATIVE (NEGATIVE) Urine RBC 0-1 (0-2/HPF) Urine WBC 0-1 (0-5/HPF) Ur Epithelial Cells RARE (NONE-FEW) Urine Bacteria RARE (NEGATIVE) Meds: Medications Discontinued Medications Generic Name Dose Route Start Last Admin Trade Name Freq PRN Reason Stop Dose Admin Sodium Chloride 1,000 mls @ 999 mls/hr 08/31/18 18:33 08/31/18 18:42 Normal Saline IV 08/31/18 19:33 999 mls/hr .Bolus ONE Administration Iopamidol 100 ml 08/31/18 19:14 08/31/18 19:15 Isovue Multipack-370 (76%) IVPUSH 08/31/18 19:15 100 ml ONETIME STA Administration Ketorolac Tromethamine 15 mg 08/31/18 18:33 08/31/18 18:42 Toradol IVPUSH 08/31/18 18:34 15 mg ONETIME ONE Administration Sodium Chloride 10 ml 08/31/18 18:33 08/31/18 18:47 Saline Flush FLUSH 10 ml ASDIRECTED PRN Administration Keep Vein Open Sodium Chloride 2.5 ml 08/31/18 18:33 08/31/18 18:47 Saline Flush FLUSH 2.5 ml ASDIRECTED PRN Administration Keep Vein Open Departure - Departure Time of Disposition: 19:39 Disposition: Home, Self-Care 01 Condition: Good Clinical Impression: Abdominal pain Qualifiers: Abdominal location: right upper quadrant Qualified Code(s): R10.11 - Right upper quadrant pain - Discharge Information Instructions: Abdominal Pain, Adult, [id number] Referrals: PCP,None [Primary Care Provider] - Forms: ED Department Discharge Additional Instructions: The following information is given to patients seen in the emergency department who are being discharged to home. This information is to outline your options for follow-up care. We provide all patients seen in our emergency department with a follow-up referral. The need for follow-up, as well as the timing and circumstances, are variable depending upon the specifics of your emergency department visit. If you don't have a primary care physician on staff, we will provide you with a referral. We always advise you to contact your personal physician following an emergency department visit to inform them of the circumstance of the visit and for follow-up with them and/or the need for any referrals to a consulting specialist. The emergency department will also refer you to a specialist when appropriate. This referral assures that you have the opportunity for follow-up care with a specialist. All of these measure are taken in an effort to provide you with optimal care, which includes your follow-up. Under all circumstances we always encourage you to contact your private physician who remains a resource for coordinating your care. When calling for follow-up care, please make the office aware that this follow-up is from your recent emergency room visit. If for any reason you are refused follow-up, please contact the [facility] Emergency Department at and asked to speak to the emergency department charge nurse. [facility] [address] [place] [id number] Push hydration and use [id number] Tylenol and ibuprofen for pain management. Please call and schedule a follow-up appointment with your provider in the clinic or one of ours to further address the incidental findings on the CAT scan of the cystic-like area on the left adnexa. This is not a cause of your current abdominal pain but needs to be evaluated in a nonemergent outpatient fashion. Continue to monitor your symptoms so you can discuss them with your provider in the clinic and return to ER as needed and as discussed - My Orders Last 24 Hours: My Active Orders 08/31/18 18:32 Saline Lock Insert [OM.PC] Stat - Assessment/Plan Last 24 Hours: My Active Orders 08/31/18 18:32 Saline Lock Insert [OM.PC] Stat <CardozoLorraine - Last Filed: 09/01/18 09:00> ED HPI GENERAL MEDICAL PROBLEM - General Source of Information: Reports: Patient History Limitations: Reports: No Limitations - History of Present Illness INITIAL COMMENTS - FREE TEXT/NARRATIVE: History of present illness: []Patient's had 2 weeks of right upper quadrant pain. She denies any fevers, chills, nausea, vomiting or diarrhea. Pain with urination, patient has had stomach stapling in the past but denies any other surgeries. Patient was seen here in the ED yesterday and had labs and ultrasound of her gallbladder which was normal. Review of systems: As per history of present illness and below otherwise all systems reviewed and negative. Past medical history: As per history of present illness and as reviewed below otherwise noncontributory. Surgical history: As per history of present illness and as reviewed below otherwise noncontributory. Social history: No reported history of drug or alcohol abuse. Family history: As per history of present illness and as reviewed below otherwise noncontributory. Physical exam: General: Well developed, well nourished in NAD HEENT: Atraumatic, normocephalic, pupils reactive, negative for conjunctival pallor or scleral icterus, mucous membranes moist, throat clear, neck supple, nontender, trachea midline. Lungs: Clear to auscultation, breath sounds equal bilaterally, chest nontender. Heart: S1S2, regular, negative for clicks, rubs, or JVD. Abdomen: Well-healed supraumbilical midline vertical scar, NABS, Soft, nondistended, right upper and left lower quadrant tenderness without rebound or guarding. Negative for masses or hepatosplenomegaly. Negative for costovertebral tenderness. Pelvis: Stable nontender. Genitourinary: Deferred. Rectal: Deferred. Extremities: Atraumatic, negative for cords or calf pain. Neurovascular unremarkable. Neuro: Awake, alert, oriented. Cranial nerves II through XII unremarkable. Cerebellum unremarkable. Motor and sensory unremarkable throughout. Exam nonfocal. Skin:warm and dry Diagnostics: CBC, chemistry, lipase, UA, CT abdomen pelvis Therapeutics: IV hydration, Toradol ED Course: Stable, signed out to Dr. Angela to check CT and lab results and further disposition. Impression: Prescriptions: Plan: Definitive disposition and diagnosis as appropriate pending reevaluation and review of above. 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 Musculoskeletal History: Reports: Fibromyalgia Neurological History: Reports: None Psychiatric History: Reports: Anxiety Endocrine/Metabolic History: Reports: None Hematologic History: Reports: None Immunologic History: Reports: None Oncologic (Cancer) History: Reports: None Dermatologic History: Reports: None - Infectious Disease History Infectious Disease History: Reports: Chicken Pox, Measles, Mumps Other Infectious Disease History: childhood - Past Surgical History Head Surgeries/Procedures: Reports: None Respiratory Surgical History: Reports: None GI Surgical History: Reports: Cholecystectomy Other GI Surgeries/Procedures: Stomach staple Social & Family History - Family History Family Medical History: Noncontributory HEENT: Reports: None Cardiac: Reports: NC Respiratory: Reports: None GI: Reports: None : Reports: None OBGYN: Reports: None Musculoskeletal: Reports: None Neurological: Reports: None Psychiatric: Reports: None Endocrine/Metabolic: Reports: None Hematologic: Reports: None Immunologic: Reports: None Dermatologic: Reports: None Oncologic: Reports: None - Caffeine Use Caffeine Use: Reports: Coffee Other Caffeine Use: 2 cups/day Caffeine Use Comment: 2 drinks/day - Living Situation & Occupation Living situation: Reports: Occupation: Retired ED ROS GENERAL - Review of Systems Review Of Systems: See Below ED EXAM, GENERAL - Physical Exam Exam: See Below Course - Orders/Labs/Meds Orders: Active Orders 24 hr Category Date Time Status Saline Lock Insert [OM.PC] Stat Oth 08/31/18 18:32 Ordered Labs: Laboratory Tests 08/31/18 08/31/18 08/31/18 Range/Units 18:36 18:36 19:20 WBC 7.62 (4.0-11.0) K/uL RBC 4.64 (4.30-5.90) M/uL Hgb 12.8 (12.0-16.0) g/dL Hct 39.5 (36.0-46.0) % MCV 85.1 (80.0-98.0) fL MCH 27.6 (27.0-32.0) pg MCHC 32.4 (31.0-37.0) g/dL RDW Std Deviation 56.9 (28.0-62.0) fl RDW Coeff of Britni 18 H (11.0-15.0) % Plt Count 264 (150-400) K/uL MPV 10.20 (7.40-12.00) fL Neut % (Auto) 54.5 (48.0-80.0) % Lymph % (Auto) 26.5 (16.0-40.0) % Eagle % (Auto) 14.2 (0.0-15.0) % Eos % (Auto) 4.7 (0.0-7.0) % Baso % (Auto) 0.1 (0.0-1.5) % Neut # (Auto) 4.2 (1.4-5.7) K/uL Lymph # (Auto) 2.0 (0.6-2.4) K/uL Eagle # (Auto) 1.1 H (0.0-0.8) K/uL Eos # (Auto) 0.4 (0.0-0.7) K/uL Baso # (Auto) 0.0 (0.0-0.1) K/uL Nucleated RBC % 0.0 /100WBC Nucleated RBCs # 0 K/uL Sodium 140 (136-145) mmol/L Potassium 3.3 L (3.5-5.1) mmol/L Chloride 105 (98-107) mmol/L Carbon Dioxide 27.9 (21.0-32.0) mmol/L BUN 18 (7.0-18.0) mg/dL Creatinine 0.8 (0.6-1.0) mg/dL Est Cr Clr Drug Dosing 61.55 mL/min Estimated GFR (MDRD) > 60.0 ml/min Glucose 109 H (74-106) mg/dL Calcium 8.7 (8.5-10.1) mg/dL Total Bilirubin 1.1 H (0.2-1.0) mg/dL AST 19 (15-37) IU/L ALT 15 (14-63) IU/L Alkaline Phosphatase 141 H (46-116) U/L Total Protein 7.1 (6.4-8.2) g/dL Albumin 2.9 L (3.4-5.0) g/dL Globulin 4.2 H (2.6-4.0) g/dL Albumin/Globulin Ratio 0.7 L (0.9-1.6) Lipase 61 L (73-393) U/L Urine Color YELLOW Urine Appearance CLEAR Urine pH 5.0 (5.0-8.0) Ur Specific [place] 1.025 (1.001-1.035) Urine Protein NEGATIVE (NEGATIVE) mg/dL Urine Glucose (UA) NEGATIVE (NEGATIVE) mg/dL Urine Ketones NEGATIVE (NEGATIVE) mg/dL Urine Occult Blood NEGATIVE (NEGATIVE) Urine Nitrite NEGATIVE (NEGATIVE) Urine Bilirubin NEGATIVE (NEGATIVE) Urine Urobilinogen 0.2 (<2.0) EU/dL Ur Leukocyte Esterase NEGATIVE (NEGATIVE) Urine RBC 0-1 (0-2/HPF) Urine WBC 0-1 (0-5/HPF) Ur Epithelial Cells RARE (NONE-FEW) Urine Bacteria RARE (NEGATIVE) Meds: Medications Discontinued Medications Generic Name Dose Route Start Last Admin Trade Name Jettq PRN Reason Stop Dose Admin Sodium Chloride 1,000 mls @ 999 mls/hr 08/31/18 18:33 08/31/18 18:42 Normal Saline IV 08/31/18 19:33 999 mls/hr .Bolus ONE Administration Iopamidol 100 ml 08/31/18 19:14 08/31/18 19:15 Isovue Multipack-370 (76%) IVPUSH 08/31/18 19:15 100 ml ONETIME STA Administration Ketorolac Tromethamine 15 mg 08/31/18 18:33 08/31/18 18:42 Toradol IVPUSH 08/31/18 18:34 15 mg ONETIME ONE Administration Sodium Chloride 10 ml 08/31/18 18:33 08/31/18 18:47 Saline Flush FLUSH 10 ml ASDIRECTED PRN Administration Keep Vein Open Sodium Chloride 2.5 ml 08/31/18 18:33 08/31/18 18:47 Saline Flush FLUSH 2.5 ml ASDIRECTED PRN Administration Keep Vein Open Departure - Departure Condition: Good - Discharge Information *PRESCRIPTION DRUG MONITORING PROGRAM REVIEWED*: No *COPY OF PRESCRIPTION DRUG MONITORING REPORT IN PATIENT MEENA: No - My Orders Last 24 Hours: My Active Orders 08/31/18 18:32 Saline Lock Insert [OM.PC] Stat - Assessment/Plan Last 24 Hours: My Active Orders 08/31/18 18:32 Saline Lock Insert [OM.PC] Stat
[2018-08-31] MEDS ORDERED: Sodium Chloride 0.9% 1,000 ML IV ONE (18:33)
[2018-08-31] MEDS ORDERED: Sodium Chloride 0.9% 2.5 ML Syringe FLUSH PRN (18:33)
[2018-08-31] MEDS ORDERED: Ketorolac 30 MG/ML SDV IVPUSH ONE (18:33)
[2018-08-31] MEDS ORDERED: Sodium Chloride 0.9% 10 ML Syringe FLUSH PRN (18:33)
[2018-08-31 19:10] LABS: CHLORIDE,CL 105 mmol/L (98-107); SODIUM,NA 140 mmol/L (136-145)
[2018-08-31] MEDS ORDERED: Iopamidol 755 MG/ML 500 ML Multipack Bottle IVPUSH STA (19:14)
--- NOTE | 2018-08-31 19:36 | CT ---
INDICATION: Right upper quadrant abdominal pain TECHNIQUE: CT abdomen and pelvis acquired with 100 cc Isovue IV contrast. COMPARISON: Abdominal ultrasound August 30, 2018, CT abdomen pelvis report from April 23, 2012. The images are currently unavailable on PACs. FINDINGS: Lower chest: Linear atelectasis at both lung bases. There is a bleb in the right lower lobe. Small hiatal hernia. Liver: Unremarkable. Spleen: Unremarkable. Pancreas: Unremarkable. Gallbladder and bile ducts: S/p cholecystectomy. Adrenal glands: Unremarkable. Kidneys: Bilateral parapelvic cysts. GI tract: Postoperative changes of gastric surgery. Vascular structures: Mild atherosclerotic disease. Lymph nodes: Unremarkable. Miscellaneous: Unremarkable. No free air or significant free fluid. Pelvic Organs: Fibroid uterus. 6.5 x 4.5 x 6.8 cm cystic mass in the left adnexa. Bones: Remote T8 compression fracture. IMPRESSION: No etiology seen to explain right upper quadrant pain. Greater than 6 cm cystic mass in the left adnexa. MRI is recommended for further characterization. Status post cholecystectomy. Fibroid uterus. Remote T8 compression fracture. Small hiatal hernia. Postoperative changes of gastric surgery. Please note that all CT scans at this facility use dose modulation, iterative reconstruction, and/or weight-based dosing when appropriate to reduce radiation dose to as low as reasonably achievable. Dictated by Yessi Doan MD @ Aug 31 2018 7:23PM Signed by Dr. Yessi Doan @ Aug 31 2018 7:35PM
[2018-08-31 20:09] VITALS: BP 129/61
== END 2018-08-31 20:00 | disposition home or self-care (01) ==
LOC: MW.ED 18:18
DX: R10.11 Right upper quadrant pain (principal); Z88.5 Allergy status to narcotic agent; Z79.82 Long term (current) use of aspirin; Z79.899 Other long term (current) drug therapy
CPT/HCPCS: 36415; 74177; 80053; 81001; 83690; 85025; 96361; 96374; 99285; J1885; J7040; Q9967

== ENCOUNTER 2018-09-07 21:59 | Emergency (ER) | payer MEDICARE, OTHER ==
[2018-09-07] MEDS ORDERED: Ketorolac 30 MG/ML SDV IM ONE (22:09)
--- NOTE | 2018-09-07 22:14 | EDM.PDOC ---
ED HPI GENERAL MEDICAL PROBLEM - General Chief Complaint: General Stated Complaint: AMBULANCE Time Seen by Provider: 09/07/18 22:01 - History of Present Illness INITIAL COMMENTS - FREE TEXT/NARRATIVE: HISTORY AND PHYSICAL: History of present illness: The patient is a 78-year-old female who lives with a caregiver and has a history of hypertension and does not follow with any provider that she admits to and presents via EMS with complaints of mid back pain which is chronic and according to the caregiver she was unable to get out of her recliner. The patient says that the pain she is having in her mid back is not new or different and she says she doesn't have any pain management or Dr. to control that. She says that she has no fevers chills nausea vomiting and no abdominal pain chest pain or shortness of breath. According to the report from EMS the caregiver said that she was in her recliner where she sits most of the day and was unable to get up which is why they called the ambulance. The patient has a brother who is not here yet but I will discuss more with him about tonight's events when he arrives. On my exam the patient does have some bruising on the left foot but she denies any trauma or any knowledge of how that may have happened. This is the patient's third ER visit in August with the prior visit on August 30 and August 31 with workups including full labs abdominal ultrasound and CT scan of the abdomen and pelvis. On the CT scan it was identified that there is a remote compression fracture of T8 and a left adnexal mass and the patient was informed of this information and the need to follow-up with those things. She says she did not follow-up in the clinic. The patient also had 2 ER visits in July. Currently in the ED the patient is sitting comfortably and is not having any complaints The patient denies any falls recently. This was also not reported to us by EMS that she had had any recent falls It is also noted in the ED visit on August 30 that the patient was offered admission as there was discussion about the patient's inability to get around and to care for herself and do activities of daily living but the patient adamantly refuses that admission. The patient has multiple ER visits over the last several years for falls weakness back pain and other related complaints. I do not see any clinic encounters although the computer does not always indicate when the patient is seen in the clinic without testing. In the prior visits in the ED that I have reviewed the patient has always been resistant to any kind of admission or placement and does have a caregiver at home. Review of systems: As per history of present illness and below otherwise all systems reviewed and negative. Past medical history: As per history of present illness and as reviewed below otherwise noncontributory. Surgical history: As per history of present illness and as reviewed below otherwise noncontributory. Social history: No reported history of drug or alcohol abuse. Family history: As per history of present illness and as reviewed below otherwise noncontributory. Physical exam: Well-developed overweight female who is nontoxic and vital signs were noted by me. His cooperative and interactive HEENT: Atraumatic, normocephalic, negative for conjunctival pallor or scleral icterus, mucous membranes moist, throat clear, neck supple, nontender, trachea midline. Lungs: Clear to auscultation, breath sounds in the bases and poor effort but no wheezing stridor or work of breathing, breath sounds equal bilaterally, chest nontender. Heart: S1S2, regular rate and rhythm no overt murmurs Abdomen: Soft, nondistended, nontender. Negative for masses or hepatosplenomegaly. Negative for costovertebral tenderness. The abdomen is very globular and bowel sounds are hypoactive Pelvis: Stable nontender. Genitourinary: Deferred. Rectal: Deferred. Extremities: Atraumatic with a superficial abrasion at the right knee which is healing and there is full range of motion of all extremities without palpable bony defects or deformities. There is some ecchymosis which looks subacute at the dorsal aspect of the left foot and at the arch of the left foot and there is some minimal tenderness there but no deformities are appreciated. There is dependent edema and bilateral feet and ankles which is symmetrical. Neurovascular unremarkable. Neuro: Awake, alert, oriented. Cranial nerves II through XII unremarkable. Cerebellum unremarkable. Motor in the lower extremities is 3/5 in the upper extremities 4/5 and sensory unremarkable throughout. Exam nonfocal. Back: There are no midline step-offs in his defects of the thoracic or lumbar spine no posterior rib tenderness no posterior pelvis tenderness and no soft tissue tenderness with palpation. I cannot reproduce the pain and the patient moves easily on my exam Diagnostics: X-ray of left foot x-ray of thoracic and lumbar spine CBC CMP UA Please note that x-rays of the thoracic and lumbar spine were ordered but there were some technical difficulties with the machine which overheated. We were unable to get the x-rays of the foot. The patient was informed that once the machine calls down that we could try to repeat the x-rays but the patient is now adamantly refusing because she does not like the page technician, Radha, and will not allow her to take x-rays. There is no other staff to do these films other than this tech so she is refusing. I am comfortable with the patient's request as she did not have a recent fall and her pain is just from sitting her chair and immobility and more chronic. Therapeutics: Toradol IM 30 mg The brother has not arrived here in the ED and we contacted him via phone. He says that he has at least an hour away and may not be able to get here shortly. He is aware that his sister is here in the ED and says that in order to get her home we will likely need to call EMS. The patient is aware of her testing results including only bruising to the left foot and no fractures and that she needs to drink more fluids as she is slightly dehydrated. The patient has directly said that she just wants to go home and she does not want to be here any longer. I have told her that we will help get her home and that she does need to connect with a provider in the clinic to reevaluate pain management and her other medical conditions so as to have a connection with somebody on her health care rather than coming into the ED multiple times. I will give her referral information Impression: Chronic mid back pain with history of T8 compression fracture; mild dehydration , left foot contusion stable Definitive disposition and diagnosis as appropriate pending reevaluation and review of above. Mid Back Pain Score (Numeric/FACES): 7 - Related Data Allergies Allergy/AdvReac Type Severity Reaction Status Date / Time codeine Allergy Dizziness Verified 09/07/18 22:02 Home Meds: Home Meds traZODone 200 mg PO BEDTIME 04/11/15 [History] Metoprolol Succinate [Toprol XL] 25 mg PO DAILY 01/09/17 [History] Sertraline [Zoloft] 25 mg PO DAILY 07/05/18 [History] Aspirin [Adult Low Dose Aspirin EC] 81 mg PO DAILY 08/20/18 [History] Past Medical History HEENT History: Reports: Hard of Hearing Cardiovascular History: Reports: None, Hypertension, SOB on Exertion Respiratory History: Reports: COPD Gastrointestinal History: Reports: Cholelithiasis Genitourinary History: Reports: None HOME HEALTH MANAGER History: Reports: None Musculoskeletal History: Reports: Fibromyalgia Neurological History: Reports: None Psychiatric History: Reports: Anxiety Endocrine/Metabolic History: Reports: None Hematologic History: Reports: None Immunologic History: Reports: None Oncologic (Cancer) History: Reports: None Dermatologic History: Reports: None - Infectious Disease History Infectious Disease History: Reports: Chicken Pox, Measles, Mumps Other Infectious Disease History: childhood - Past Surgical History Head Surgeries/Procedures: Reports: None Respiratory Surgical History: Reports: None GI Surgical History: Reports: Cholecystectomy Other GI Surgeries/Procedures: Stomach staple Social & Family History - Family History Family Medical History: Noncontributory HEENT: Reports: None Cardiac: Reports: [place] Respiratory: Reports: None GI: Reports: None : Reports: None OBGYN: Reports: None Musculoskeletal: Reports: None Neurological: Reports: None Psychiatric: Reports: None Endocrine/Metabolic: Reports: None Hematologic: Reports: None Immunologic: Reports: None Dermatologic: Reports: None Oncologic: Reports: None - Tobacco Use Smoking Status *Q: Never Smoker Second Hand Smoke Exposure: No - Caffeine Use Caffeine Use: Reports: Coffee Other Caffeine Use: 2 cups/day Caffeine Use Comment: 2 drinks/day - Recreational Drug Use Recreational Drug Use: No - Living Situation & Occupation Living situation: Reports: Occupation: Retired ED ROS GENERAL - Review of Systems Review Of Systems: ROS reveals no pertinent complaints other than HPI. ED EXAM, GENERAL - Physical Exam Exam: See Below (See dictation) Course - Vital Signs Last Recorded V/S: Last Vital Signs Temp 36.9 C 09/07/18 22:03 Pulse 74 09/07/18 23:00 Resp 18 09/07/18 23:00 BP 152/78 H 09/07/18 23:00 Pulse Ox 97 09/07/18 23:00 - Orders/Labs/Meds Labs: Laboratory Tests 09/07/18 09/07/18 09/07/18 Range/Units 22:20 22:20 23:37 WBC 6.48 (4.0-11.0) K/uL RBC 4.27 L (4.30-5.90) M/uL Hgb 11.8 L (12.0-16.0) g/dL Hct 36.9 (36.0-46.0) % MCV 86.4 (80.0-98.0) fL MCH 27.6 (27.0-32.0) pg MCHC 32.0 (31.0-37.0) g/dL RDW Std Deviation 58.0 (28.0-62.0) fl RDW Coeff of Britni 19 H (11.0-15.0) % Plt Count 291 (150-400) K/uL MPV 9.90 (7.40-12.00) fL Neut % (Auto) 53.4 (48.0-80.0) % Lymph % (Auto) 31.5 (16.0-40.0) % [place] % (Auto) 12.7 (0.0-15.0) % Eos % (Auto) 2.2 (0.0-7.0) % Baso % (Auto) 0.2 (0.0-1.5) % Neut # (Auto) 3.5 (1.4-5.7) K/uL Lymph # (Auto) 2.0 (0.6-2.4) K/uL [place] # (Auto) 0.8 (0.0-0.8) K/uL Eos # (Auto) 0.1 (0.0-0.7) K/uL Baso # (Auto) 0.0 (0.0-0.1) K/uL Nucleated RBC % 0.0 /100WBC Nucleated RBCs # 0 K/uL Sodium 141 (136-145) mmol/L Potassium 3.3 L (3.5-5.1) mmol/L Chloride 106 (98-107) mmol/L Carbon Dioxide 29.5 (21.0-32.0) mmol/L BUN 19 H (7.0-18.0) mg/dL Creatinine 0.9 (0.6-1.0) mg/dL Est Cr Clr Drug Dosing 54.71 mL/min Estimated GFR (MDRD) > 60.0 ml/min Glucose 85 (74-106) mg/dL Calcium 8.2 L (8.5-10.1) mg/dL Total Bilirubin 0.4 (0.2-1.0) mg/dL AST 7 L (15-37) IU/L ALT 6 L (14-63) IU/L Alkaline Phosphatase 141 H (46-116) U/L Total Protein 6.3 L (6.4-8.2) g/dL Albumin 2.7 L (3.4-5.0) g/dL Globulin 3.6 (2.6-4.0) g/dL Albumin/Globulin Ratio 0.8 L (0.9-1.6) Urine Color YELLOW Urine Appearance CLEAR Urine pH 6.0 (5.0-8.0) Ur Specific [place] >= 1.030 (1.001-1.035) Urine Protein NEGATIVE (NEGATIVE) mg/dL Urine Glucose (UA) NEGATIVE (NEGATIVE) mg/dL Urine Ketones TRACE H (NEGATIVE) mg/dL Urine Occult Blood NEGATIVE (NEGATIVE) Urine Nitrite NEGATIVE (NEGATIVE) Urine Bilirubin SMALL H (NEGATIVE) Urine Ictotest NEGATIVE Urine Urobilinogen 2.0 H (<2.0) EU/dL Ur Leukocyte Esterase NEGATIVE (NEGATIVE) Meds: Medications Discontinued Medications Generic Name Dose Route Start Last Admin Trade Name Freq PRN Reason Stop Dose Admin Ketorolac Tromethamine 30 mg 09/07/18 22:09 09/07/18 22:49 Toradol IM 09/07/18 22:10 30 mg ONETIME ONE Administration Departure - Departure Time of Disposition: 23:59 Disposition: Home, Self-Care 01 Condition: Good Clinical Impression: Contusion of foot, left Qualifiers: Encounter type: initial encounter Qualified Code(s): S90.32XA - Contusion of left foot, initial encounter Chronic back pain Qualifiers: Back pain location: thoracic back pain Back pain laterality: unspecified Qualified Code(s): M54.6 - Pain in thoracic spine; G89.29 - Other chronic pain - Discharge Information Referrals: PCP,Unknown [Primary Care Provider] - Forms: ED Department Discharge Additional Instructions: The following information is given to patients seen in the emergency department who are being discharged to home. This information is to outline your options for follow-up care. We provide all patients seen in our emergency department with a follow-up referral. The need for follow-up, as well as the timing and circumstances, are variable depending upon the specifics of your emergency department visit. If you don't have a primary care physician on staff, we will provide you with a referral. We always advise you to contact your personal physician following an emergency department visit to inform them of the circumstance of the visit and for follow-up with them and/or the need for any referrals to a consulting specialist. The emergency department will also refer you to a specialist when appropriate. This referral assures that you have the opportunity for followup care with a specialist. All of these measure are taken in an effort to provide you with optimal care, which includes your followup. Under all circumstances we always encourage you to contact your private physician who remains a resource for coordinating your care. When calling for followup care, please make the office aware that this follow-up is from your recent emergency room visit. If for any reason you are refused follow-up, please contact the [facility] emergency department at and ask to speak to the emergency department charge nurse. [facility] Primary care- [place] [address] Please try to elevate your feet and not sit in her recliner all day and try to get up and move around with her walker. Please call and schedule a follow-up appointment in the clinic to evaluate your chronic pain and other medical issues so that you'll have a caregiver that is familiar with. Can help you with minor problems. Push hydration such as water Gatorade and juices and avoid caffeinated products to help promote better hydration and reduce weakness. Return to ER as needed and as discussed
[2018-09-07 22:46] LABS: CHLORIDE,CL 106 mmol/L (98-107); SODIUM,NA 141 mmol/L (136-145)
--- NOTE | 2018-09-07 23:51 | CR ---
Indication: Pain, swelling, and bruising, no known injury Technique: Three views left foot Comparison: None Findings: Bones: Alignment is normal. Osteopenia. No fractures or bone lesions. Joint spaces: Unremarkable. Soft tissues: Swelling along the dorsum of the foot. Impression: Swelling along the dorsum of the foot. No acute osseous abnormality. Dictated by Yessi Doan MD @ Sep 07 2018 11:48PM Signed by Dr. Yessi Doan @ Sep 07 2018 11:48PM
[2018-09-08 00:59] VITALS: BP 134/87
== END 2018-09-08 00:39 | disposition home or self-care (01) ==
LOC: MW.ED 21:59
DX: S90.32XA Contusion of left foot, initial encounter (principal); E86.0 Dehydration; M54.6 Pain in thoracic spine; J44.9 Chronic obstructive pulmonary disease, unspecified; F41.9 Anxiety disorder, unspecified; G89.29 Other chronic pain; I10 Essential (primary) hypertension; Z88.5 Allergy status to narcotic agent; Z79.899 Other long term (current) drug therapy; Z79.82 Long term (current) use of aspirin; X58.XXXA Exposure to other specified factors, initial encounter
CPT/HCPCS: 36415; 73630; 80053; 81003; 85025; 96372; 99285; J1885; 99284

== ENCOUNTER 2018-10-01 15:13 | Emergency (ER) | payer MEDICARE, OTHER ==
--- NOTE | 2018-10-01 15:28 | EDM.PDOC ---
ED HPI GENERAL MEDICAL PROBLEM - General Chief Complaint: General Stated Complaint: FACE PAIN Time Seen by Provider: 10/01/18 15:14 Source of Information: Reports: Patient History Limitations: Reports: No Limitations - History of Present Illness INITIAL COMMENTS - FREE TEXT/NARRATIVE: History of present illness: []Patient is a frequent visitor to the ED today has a complaint of right-sided facial pain she thinks is secondary to a bad tooth. She also states she gets dizzy when she lays flat and is nauseated. She has Not had any fevers, chills, vomiting, diarrhea, chest, abdomen or back pain or any numbness or tingling. Review of systems: As per history of present illness and below otherwise all systems reviewed and negative. Past medical history: As per history of present illness and as reviewed below otherwise noncontributory. Surgical history: As per history of present illness and as reviewed below otherwise noncontributory. Social history: No reported history of drug or alcohol abuse. Family history: As per history of present illness and as reviewed below otherwise noncontributory. Physical exam: General: Well developed, well nourished in NAD HEENT: Atraumatic, normocephalic, pupils reactive, negative for conjunctival pallor or scleral icterus, mucous membranes moist, throat clear, neck supple, nontender, trachea midline. No erythema of the gingiva, no adenopathy Lungs: Clear to auscultation, breath sounds equal bilaterally, chest nontender. Heart: S1S2, regular, negative for clicks, rubs, or JVD. Abdomen: NABS, Soft, nondistended, nontender. Negative for masses or hepatosplenomegaly. Negative for costovertebral tenderness. Pelvis: Stable nontender. Genitourinary: Deferred. Rectal: Deferred. Extremities: Atraumatic, negative for cords or calf pain. Neurovascular unremarkable. Neuro: Awake, alert, oriented. Cranial nerves II through XII unremarkable. Cerebellum unremarkable. Motor and sensory unremarkable throughout. Exam nonfocal. Skin:warm and dry Diagnostics: Vital signs stable Therapeutics: Decline medications ED Course: Stable Impression: Medical screening exam, Nausea, facial pain Prescriptions: Zofran Plan: Take Tylenol for pain, Zofran for nausea, follow up with your primary care physician, return to ER if symptoms worsen or change. Definitive disposition and diagnosis as appropriate pending reevaluation and review of above. Right Face/Facial Pain Score (Numeric/FACES): 8 - Related Data Allergies Allergy/AdvReac Type Severity Reaction Status Date / Time codeine Allergy Dizziness Verified 10/01/18 15:17 Home Meds: Home Meds traZODone 200 mg PO BEDTIME 04/11/15 [History] Metoprolol Succinate [Toprol XL] 25 mg PO DAILY 01/09/17 [History] Sertraline [Zoloft] 25 mg PO DAILY 07/05/18 [History] Aspirin [Adult Low Dose Aspirin EC] 81 mg PO DAILY 08/20/18 [History] Ondansetron HCl [Zofran] 4 mg PO Q4HR #12 tablet 10/01/18 [Rx] Past Medical History HEENT History: Reports: Hard of Hearing Cardiovascular History: Reports: None, Hypertension, SOB on Exertion Respiratory History: Reports: COPD Gastrointestinal History: Reports: Cholelithiasis Genitourinary History: Reports: None ASSISTANT WAREHOUSE MANAGER History: Reports: None Musculoskeletal History: Reports: Fibromyalgia Neurological History: Reports: None Psychiatric History: Reports: Anxiety Endocrine/Metabolic History: Reports: None Hematologic History: Reports: None Immunologic History: Reports: None Oncologic (Cancer) History: Reports: None Dermatologic History: Reports: None - Infectious Disease History Infectious Disease History: Reports: Chicken Pox, Measles, Mumps Other Infectious Disease History: childhood - Past Surgical History Head Surgeries/Procedures: Reports: None Respiratory Surgical History: Reports: None GI Surgical History: Reports: Cholecystectomy Other GI Surgeries/Procedures: Stomach staple Social & Family History - Family History Family Medical History: Noncontributory HEENT: Reports: None Cardiac: Reports: [place] Respiratory: Reports: None GI: Reports: None : Reports: None OBGYN: Reports: None Musculoskeletal: Reports: None Neurological: Reports: None Psychiatric: Reports: None Endocrine/Metabolic: Reports: None Hematologic: Reports: None Immunologic: Reports: None Dermatologic: Reports: None Oncologic: Reports: None - Tobacco Use Smoking Status *Q: Never Smoker - Caffeine Use Caffeine Use: Reports: Coffee Other Caffeine Use: 2 cups/day Caffeine Use Comment: 2 drinks/day - Recreational Drug Use Recreational Drug Use: No - Living Situation & Occupation Living situation: Reports: Occupation: Retired ED ROS GENERAL - Review of Systems Review Of Systems: See Below ED EXAM, GENERAL - Physical Exam Exam: See Below Course - Vital Signs Last Recorded V/S: Last Vital Signs Temp 96.1 F 10/01/18 15:15 Pulse 76 10/01/18 15:15 Resp 18 10/01/18 15:15 BP 146/98 H 10/01/18 15:15 Pulse Ox 93 L 10/01/18 15:15 Departure - Departure Time of Disposition: 15:29 Disposition: Home, Self-Care 01 Condition: Good Clinical Impression: Encounter for medical screening examination, Nausea - Discharge Information *PRESCRIPTION DRUG MONITORING PROGRAM REVIEWED*: No *COPY OF PRESCRIPTION DRUG MONITORING REPORT IN PATIENT MEENA: No Prescriptions: Ondansetron HCl [Zofran] 4 mg PO Q4HR #12 tablet Referrals: PCP,None [Primary Care Provider] - Additional Instructions: The following information is given to patients seen in the emergency department who are being discharged to home. This information is to outline your options for follow-up care. We provide all patients seen in our emergency department with a follow-up referral. The need for follow-up, as well as the timing and circumstances, are variable depending upon the specifics of your emergency department visit. If you don't have a primary care physician on staff, we will provide you with a referral. We always advise you to contact your personal physician following an emergency department visit to inform them of the circumstance of the visit and for follow-up with them and/or the need for any referrals to a consulting specialist. The emergency department will also refer you to a specialist when appropriate. This referral assures that you have the opportunity for follow-up care with a specialist. All of these measure are taken in an effort to provide you with optimal care, which includes your follow-up. Under all circumstances we always encourage you to contact your private physician who remains a resource for coordinating your care. When calling for follow-up care, please make the office aware that this follow-up is from your recent emergency room visit. If for any reason you are refused follow-up, please contact the [facility] Emergency Department at and asked to speak to the emergency department charge nurse. Take meds as directed, follow up with your primary care physician, return to ER if symptoms worsen or change. [facility] [address] [place], [place] [id number]
[2018-10-01 15:46] VITALS: BP 147/112
== END 2018-10-01 15:44 | disposition home or self-care (01) ==
LOC: MW.ED 15:13
DX: R51 Headache (principal); R11.0 Nausea; I10 Essential (primary) hypertension; F41.9 Anxiety disorder, unspecified; Z79.82 Long term (current) use of aspirin; Z79.899 Other long term (current) drug therapy; Z88.5 Allergy status to narcotic agent; Z90.49 Acquired absence of other specified parts of digestive tract
CPT/HCPCS: 99282; 99283

== ENCOUNTER 2018-11-24 20:35 | Emergency (ER) | payer MEDICARE, OTHER ==
--- NOTE | 2018-11-24 20:58 | EDM.PDOC ---
ED HPI GENERAL MEDICAL PROBLEM - General Chief Complaint: Lower Extremity Injury/Pain Stated Complaint: INJURY TO LEFT LEG Time Seen by Provider: 11/24/18 20:42 Source of Information: Reports: Patient History Limitations: Reports: No Limitations - History of Present Illness INITIAL COMMENTS - FREE TEXT/NARRATIVE: HISTORY AND PHYSICAL: History of present illness: Patient is a 78-year-old female who presents to the emergency room with complaints of left ankle pain after a fall. She states she was attempting to get up off of the toilet when she rolled her left ankle resulting in a fall. She denies hitting her head or having any loss of consciousness. Shortly after she was unable to get up and weight-bear and called EMS for transport. Review of systems: As per history of present illness and below otherwise all systems reviewed and negative. Past medical history: As per history of present illness and as reviewed below otherwise noncontributory. Surgical history: As per history of present illness and as reviewed below otherwise noncontributory. Social history: See social history for further information Family history: As per history of present illness and as reviewed below otherwise noncontributory. Physical exam: General: Well-developed and well-nourished 78-year-old female. Alert and oriented. Nontoxic appearing and in no acute distress. HEENT: Atraumatic, normocephalic, pupils equal and reactive bilaterally, negative for conjunctival pallor or scleral icterus, mucous membranes moist, hard of hearing, trachea midline. No drooling or trismus noted. No meningeal signs. No hot potato voice noted. Lungs: Clear to auscultation, breath sounds equal bilaterally, chest nontender. Heart: S1S2, regular rate and rhythm without overt murmur Abdomen: Soft, obese, nontender. Negative for masses. Negative for costovertebral tenderness. Pelvis is stable nontender. C-spine/Back: No pinpoint vertebral tenderness upon palpation. No crepitus, step -offs or obvious deformities. Denies any urinary or fecal incontinence. Denies any numbness, tingling or saddle paresthesia. Skin: Intact, warm, dry. No lesions or rashes noted. Extremities: Limited ROM of the left ankle. Swelling and early bruising noted. Tenderness with palpation over the medial and lateral malleolus. Moves all other extremities per self without difficulty or deficits, negative for cords or calf pain. Strong pedal pulses bilaterally. Capillary refill less than 3 seconds. Neurovascular unremarkable. Neuro: Awake, alert, oriented. Cranial nerves II through XII unremarkable. Cerebellum unremarkable. Motor and sensory unremarkable throughout. Exam nonfocal. Notes: Mildly displaced comminuted fracture involving the left lateral malleolus extending cranially into the metadiaphyseal region of the left fibula. Mildly displaced acute fracture may be mildly comminuted involving the right medial malleolus. Small ossific density projected along the left ankle joint anteriorly could be related to posttraumatic fracture fragments. Tiny linear ossific density along the proximal aspect of the talus likely an acute avulsion fracture. Moderate soft tissue swelling involving the distal calf, ankle and hindfoot. Moderate soft tissue swelling dorsal aspect of left. Degenerative arthritis left ankle and foot. Remainder negative. Due to age and large body habitus; she is unable to weight bear. She does not have any family members whom can help her at home. We currently do not have orthopedics available in the community. Dr Mccall agrees that this patient should be transferred. Dr Mccall spoke with Dr Washington at [facility] in [place]. Diagnostics: X-ray Therapeutics: Fiberglass splint Impression: Bimalleolar Fracture, Left Plan: Transfer to [facility] via ground EMS Definitive disposition and diagnosis as appropriate pending reevaluation and review of above. - Related Data Allergies Allergy/AdvReac Type Severity Reaction Status Date / Time codeine Allergy Dizziness Verified 11/24/18 21:03 Home Meds: Home Meds traZODone 200 mg PO BEDTIME 04/11/15 [History] Metoprolol Succinate [Toprol XL] 25 mg PO DAILY 01/09/17 [History] Sertraline [Zoloft] 25 mg PO DAILY 07/05/18 [History] Aspirin [Adult Low Dose Aspirin EC] 81 mg PO DAILY 08/20/18 [History] Ondansetron HCl [Zofran] 4 mg PO Q4HR #12 tablet 10/01/18 [Rx] Past Medical History HEENT History: Reports: Hard of Hearing Cardiovascular History: Reports: None, Hypertension, SOB on Exertion Respiratory History: Reports: COPD Gastrointestinal History: Reports: Cholelithiasis Genitourinary History: Reports: None OUTPATIENT SERVICES DIRECTOR History: Reports: None Musculoskeletal History: Reports: Fibromyalgia Neurological History: Reports: None Psychiatric History: Reports: Anxiety Endocrine/Metabolic History: Reports: None Hematologic History: Reports: None Immunologic History: Reports: None Oncologic (Cancer) History: Reports: None Dermatologic History: Reports: None - Infectious Disease History Infectious Disease History: Reports: Chicken Pox, Measles, Mumps Other Infectious Disease History: childhood - Past Surgical History Head Surgeries/Procedures: Reports: None Respiratory Surgical History: Reports: None GI Surgical History: Reports: Cholecystectomy Other GI Surgeries/Procedures: Stomach staple Social & Family History - Family History Family Medical History: Noncontributory HEENT: Reports: None Cardiac: Reports: [place] Respiratory: Reports: None GI: Reports: None : Reports: None OBGYN: Reports: None Musculoskeletal: Reports: None Neurological: Reports: None Psychiatric: Reports: None Endocrine/Metabolic: Reports: None Hematologic: Reports: None Immunologic: Reports: None Dermatologic: Reports: None Oncologic: Reports: None - Caffeine Use Caffeine Use: Reports: Coffee Other Caffeine Use: 2 cups/day Caffeine Use Comment: 2 drinks/day - Living Situation & Occupation Living situation: Reports: Occupation: Retired Review of Systems - Review of Systems Review Of Systems: ROS reveals no pertinent complaints other than HPI. ED EXAM, GENERAL - Physical Exam Exam: See Below (See dictation) Course - Vital Signs Last Recorded V/S: Last Vital Signs Temp 96.9 F 11/24/18 20:36 Pulse 74 11/24/18 20:36 Resp 21 H 11/24/18 20:36 BP 132/81 11/24/18 20:36 Pulse Ox 96 11/24/18 20:36 Departure - Departure Time of Disposition: 21:09 Disposition: DC/Tfer to Other 70 Clinical Impression: Bimalleolar fracture of left ankle Qualifiers: Encounter type: initial encounter Fracture type: closed Qualified Code(s): S82.842A - Displaced bimalleolar fracture of left lower leg, initial encounter for closed fracture - Discharge Information Referrals: PCP,None [Primary Care Provider] - Forms: ED Department Discharge
--- NOTE | 2018-11-24 21:24 | CR ---
INDICATION: Patient fell. Technique. Three views left ankle Findings : Mildly displaced comminuted fracture involving the left lateral malleolus extending cranially into the metadiaphyseal region of the left fibula. Mildly displaced acute fracture may be mildly comminuted involving the right medial malleolus. Small ossific density projected along the left ankle joint anteriorly could be related to posttraumatic fracture fragments. Tiny linear ossific density along the proximal aspect of the talus likely an acute avulsion fracture. Moderate soft tissue swelling involving the distal calf, ankle and hindfoot. Moderate soft tissue swelling dorsal aspect of left. Degenerative arthritis left ankle and foot. Remainder negative. Dictated by Pasquale Pepper MD @ Nov 24 2018 9:22PM Signed by Dr. Pasquale Pepper @ Nov 24 2018 9:24PM
[2018-11-24] MEDS ORDERED: Sodium Chloride 0.9% 2.5 ML Syringe FLUSH PRN (22:01)
[2018-11-24] MEDS ORDERED: Sodium Chloride 0.9% 10 ML Syringe FLUSH PRN (22:01)
[2018-11-24] MEDS ORDERED: Morphine 2 MG/ML Syringe IVPUSH ONE (22:01)
[2018-11-24] MEDS ORDERED: Ondansetron 4 MG/2 ML SDV IVPUSH ONE (22:01)
[2018-11-25] MEDS ORDERED: Morphine 2 MG/ML Syringe IVPUSH ONE ×2 (01:15→07:24)
[2018-11-25 09:45] VITALS: BP 141/81
== END 2018-11-25 09:05 | disposition other institution (70) ==
LOC: MW.ED 20:35
DX: S82.842A Displaced bimalleolar fracture of left lower leg, initial encounter for closed fracture (principal); F41.9 Anxiety disorder, unspecified; J44.9 Chronic obstructive pulmonary disease, unspecified; I10 Essential (primary) hypertension; Z79.82 Long term (current) use of aspirin; Z88.5 Allergy status to narcotic agent; Z79.899 Other long term (current) drug therapy; W19.XXXA Unspecified fall, initial encounter
CPT/HCPCS: 29515; 73610; 96374; 96375; 96376; 99285; J2270; J2405

== ENCOUNTER 2018-12-03 17:54 | Emergency (ER) | payer MEDICARE, OTHER ==
--- NOTE | 2018-12-03 18:04 | EDM.PDOC ---
ED HPI GENERAL MEDICAL PROBLEM - General Chief Complaint: Lower Extremity Injury/Pain Stated Complaint: AMB Time Seen by Provider: 12/03/18 17:55 Source of Information: Reports: Patient History Limitations: Reports: No Limitations - History of Present Illness INITIAL COMMENTS - FREE TEXT/NARRATIVE: History of present illness: []Patient is a [facility] patient who was diagnosed with a bimalleolar fracture on November 24 and sent to [facility] for orthopedic evaluation. Sent back to [facility] 3 days ago and they sent her back to the ER today because her foot is so swollen they could not get her ankle boot back on. Review of systems: As per history of present illness and below otherwise all systems reviewed and negative. Past medical history: As per history of present illness and as reviewed below otherwise noncontributory. Surgical history: As per history of present illness and as reviewed below otherwise noncontributory. Social history: No reported history of drug or alcohol abuse. Family history: As per history of present illness and as reviewed below otherwise noncontributory. Physical exam: General: Well developed, well nourished in NAD HEENT: Atraumatic, normocephalic, pupils reactive, negative for conjunctival pallor or scleral icterus, mucous membranes moist, throat clear, neck supple, nontender, trachea midline. Lungs: Clear to auscultation, breath sounds equal bilaterally, chest nontender. Heart: S1S2, regular, negative for clicks, rubs, or JVD. Abdomen: NABS, Soft, nondistended, nontender. Negative for masses or hepatosplenomegaly. Negative for costovertebral tenderness. Pelvis: Stable nontender. Genitourinary: Deferred. Rectal: Deferred. Extremities: Obvious deformity where her knee is aligned with the medial malleolus, 2+ pitting edema of the dorsum of her foot, Left ankle with ulceration over medial malleolus, she is able to move toes and has sensation distally Doppler pulses are audible there is no purulent drainage, negative for cords or calf pain. Neurovascular unremarkable. Neuro: Awake, alert, oriented. Cranial nerves II through XII unremarkable. Cerebellum unremarkable. Motor and sensory unremarkable throughout. Exam nonfocal. Skin:warm and dry Diagnostics: X-ray left ankle Therapeutics: Ankle reduced and splinted, morphine and Zofran ED Course: Discussed with Dr. Ck Schumacher at [facility] just evaluated for her earlier for this fracture. Patient's power of trial attorney which is her brother initially refused surgery, therefore she was sent back to [place]. Dr. Schumacher now wishes her to be transported back to [facility] as the fracture is much worse. Impression: Fracture/Dislocation left ankle Prescriptions: None Plan: Transport to [facility] by ambulance Definitive disposition and diagnosis as appropriate pending reevaluation and review of above. Left Lower Leg Pain Score (Numeric/FACES): 7 - Related Data Allergies Allergy/AdvReac Type Severity Reaction Status Date / Time codeine Allergy Dizziness Verified 12/03/18 18:16 Home Meds: Home Meds Sertraline [Zoloft] 25 mg PO DAILY 07/05/18 [History] Aspirin [Adult Low Dose Aspirin EC] 81 mg PO DAILY 08/20/18 [History] Carbamide Peroxide [Debrox] 15 ml OT ASDIRECTED 12/03/18 [History] Docusate Sodium [Colace] 100 mg PO DAILY 12/03/18 [History] Metoprolol Succinate 25 mg PO ASDIRECTED 12/03/18 [History] Sertraline [Zoloft] 0 mg PO ASDIRECTED 12/03/18 [History] oxyCODONE HCl/Acetaminophen [Endocet 5-325 Tablet] 1 mg PO ASDIRECTED 12/03/18 [ History] traZODone HCl [Trazodone HCl] 100 gm MC ASDIRECTED 12/03/18 [History] Past Medical History HEENT History: Reports: Hard of Hearing Cardiovascular History: Reports: None, Hypertension, SOB on Exertion Respiratory History: Reports: COPD Gastrointestinal History: Reports: Cholelithiasis Genitourinary History: Reports: None MRI SPECIAL PROCEDURES TECHNOLOGIST History: Reports: None Musculoskeletal History: Reports: Fibromyalgia Neurological History: Reports: None Psychiatric History: Reports: Anxiety Endocrine/Metabolic History: Reports: None Hematologic History: Reports: None Immunologic History: Reports: None Oncologic (Cancer) History: Reports: None Dermatologic History: Reports: None - Infectious Disease History Infectious Disease History: Reports: Chicken Pox, Measles, Mumps Other Infectious Disease History: childhood - Past Surgical History Head Surgeries/Procedures: Reports: None Respiratory Surgical History: Reports: None GI Surgical History: Reports: Cholecystectomy Other GI Surgeries/Procedures: Stomach staple Social & Family History - Family History Family Medical History: Noncontributory HEENT: Reports: None Cardiac: Reports: [place] Respiratory: Reports: None GI: Reports: None : Reports: None OBGYN: Reports: None Musculoskeletal: Reports: None Neurological: Reports: None Psychiatric: Reports: None Endocrine/Metabolic: Reports: None Hematologic: Reports: None Immunologic: Reports: None Dermatologic: Reports: None Oncologic: Reports: None - Caffeine Use Caffeine Use: Reports: Coffee Other Caffeine Use: 2 cups/day Caffeine Use Comment: 2 drinks/day - Living Situation & Occupation Living situation: Reports: Occupation: Retired Review of Systems - Review of Systems Review Of Systems: See Below ED EXAM, GENERAL - Physical Exam Exam: See Below Course - Vital Signs Last Recorded V/S: Last Vital Signs Temp 97.1 F 12/03/18 20:14 Pulse 86 12/03/18 21:30 Resp 18 12/03/18 21:30 BP 148/74 H 12/03/18 21:30 Pulse Ox 98 12/03/18 21:30 - Orders/Labs/Meds Orders: Active Orders 24 hr Category Date Time Status Saline Lock Insert [OM.PC] Stat Oth 12/03/18 18:08 Ordered Labs: Laboratory Tests 12/03/18 12/03/18 Range/Units 18:30 18:30 WBC 8.62 (4.0-11.0) K/uL RBC 4.03 L (4.30-5.90) M/uL Hgb 11.4 L (12.0-16.0) g/dL Hct 35.5 L (36.0-46.0) % MCV 88.1 (80.0-98.0) fL MCH 28.3 (27.0-32.0) pg MCHC 32.1 (31.0-37.0) g/dL RDW Std Deviation 57.5 (28.0-62.0) fl RDW Coeff of Britni 18 H (11.0-15.0) % Plt Count 372 (150-400) K/uL MPV 9.50 (7.40-12.00) fL Neut % (Auto) 61.2 (48.0-80.0) % Lymph % (Auto) 23.7 (16.0-40.0) % [place] % (Auto) 12.9 (0.0-15.0) % Eos % (Auto) 2.1 (0.0-7.0) % Baso % (Auto) 0.1 (0.0-1.5) % Neut # (Auto) 5.3 (1.4-5.7) K/uL Lymph # (Auto) 2.0 (0.6-2.4) K/uL [place] # (Auto) 1.1 H (0.0-0.8) K/uL Eos # (Auto) 0.2 (0.0-0.7) K/uL Baso # (Auto) 0.0 (0.0-0.1) K/uL Nucleated RBC % 0.0 /100WBC Nucleated RBCs # 0 K/uL Sodium 141 (136-145) mmol/L Potassium 3.8 (3.5-5.1) mmol/L Chloride 103 (98-107) mmol/L Carbon Dioxide 30.5 (21.0-32.0) mmol/L BUN 20 H (7.0-18.0) mg/dL Creatinine 0.9 (0.6-1.0) mg/dL Est Cr Clr Drug Dosing 52.81 mL/min Estimated GFR (MDRD) > 60.0 ml/min Glucose 108 H (74-106) mg/dL Calcium 9.3 (8.5-10.1) mg/dL Meds: Medications Discontinued Medications Generic Name Dose Route Start Last Admin Trade Name Freq PRN Reason Stop Dose Admin Bacitracin Confirm 12/03/18 19:38 12/03/18 19:52 Bacitracin Oint 1 Gm Administered 12/03/18 19:39 Not Given Dose 4 dose .ROUTE .STK-MED ONE Bacitracin 4 dose 12/03/18 19:51 12/03/18 19:53 Bacitracin Oint 1 Gm TOP 12/03/18 19:52 4 dose ONETIME ONE Administration Morphine Sulfate 6 mg 12/03/18 19:50 12/03/18 19:52 Morphine IVPUSH 12/03/18 19:51 6 mg ONETIME ONE Administration Ondansetron HCl 4 mg 12/03/18 19:35 12/03/18 19:49 Zofran IVPUSH 12/03/18 19:36 4 mg ONETIME ONE Administration Sodium Chloride 10 ml 12/03/18 18:08 12/03/18 18:23 Saline Flush FLUSH 10 ml ASDIRECTED PRN Administration Keep Vein Open Sodium Chloride 2.5 ml 12/03/18 18:08 12/03/18 18:23 Saline Flush FLUSH 2.5 ml ASDIRECTED PRN Administration Keep Vein Open Departure - Departure Time of Disposition: 21:50 Disposition: DC/Tfer to Acute Hospital 02 Condition: Fair Clinical Impression: Fracture dislocation of left ankle Qualifiers: Encounter type: sequela Fracture type: open - Discharge Information *PRESCRIPTION DRUG MONITORING PROGRAM REVIEWED*: No *COPY OF PRESCRIPTION DRUG MONITORING REPORT IN PATIENT MEENA: No Referrals: PCP,Unknown [Primary Care Provider] - Forms: ED Department Discharge - My Orders Last 24 Hours: My Active Orders 12/03/18 18:08 Saline Lock Insert [OM.PC] Stat - Assessment/Plan Last 24 Hours: My Active Orders 12/03/18 18:08 Saline Lock Insert [OM.PC] Stat
[2018-12-03] MEDS ORDERED: Sodium Chloride 0.9% 10 ML Syringe FLUSH PRN (18:08)
[2018-12-03] MEDS ORDERED: Sodium Chloride 0.9% 2.5 ML Syringe FLUSH PRN (18:08)
[2018-12-03 18:49] LABS: BLOOD UREA NITROGEN,BUN 20 mg/dL (7.0-18.0); CARBON DIOXIDE,CO2 30.5 mmol/L (21.0-32.0); CHLORIDE,CL 103 mmol/L (98-107); GLUCOSE RANDOM 108 mg/dL (74-106); POTASSIUM,K 3.8 mmol/L (3.5-5.1); SODIUM,NA 141 mmol/L (136-145)
--- NOTE | 2018-12-03 18:51 | CR ---
Indication: Pain, infection and fracture Technique: Left ankle 3 views Comparison: November 24, 2018 Findings/Impression: Again demonstrated are fractures in the medial and lateral malleoli. Both fractures have become displaced since the prior exam, this is particularly evident in the lateral malleolus fracture. Marked incongruency of the ankle mortise is new as well. Interval worsening of soft tissue swelling. Dictated by Ronald Morris MD @ Dec 03 2018 6:45PM Signed by Dr. Ronald Morris @ Dec 03 2018 6:50PM
[2018-12-03] MEDS ORDERED: Ondansetron 4 MG/2 ML SDV IVPUSH ONE (19:35)
[2018-12-03] MEDS ORDERED: Morphine 10 MG/ML Syringe IM ONE (19:35)
[2018-12-03] MEDS ORDERED: Bacitracin Oint 1 GM U/D Packet ONE (19:38)
[2018-12-03] MEDS ORDERED: Morphine 10 MG/ML Syringe IVPUSH ONE (19:50)
[2018-12-03] MEDS ORDERED: Bacitracin Oint 1 GM U/D Packet TOP ONE (19:51)
--- NOTE | 2018-12-03 20:35 | CR ---
Indication: Postreduction. Technique: Two views of the left ankle were obtained. Comparison: December 03, 2018. The current study is dated 2009 hours. Findings: Cast material obscures bony detail. Re-identified is the trimalleolar fracture. The alignment is closer to anatomic. Impression: Postreduction of the trimalleolar fracture of the left ankle. Dictated by Bess Rojas MD @ Dec 03 2018 8:33PM Signed by Dr. Bess Rojas @ Dec 03 2018 8:34PM
[2018-12-03 22:07] VITALS: BP 148/74; PULSE 86
== END 2018-12-03 21:50 ==
LOC: MW.ED 17:54
DX: S82.852B Displaced trimalleolar fracture of left lower leg, initial encounter for open fracture type I or II (principal); I10 Essential (primary) hypertension; F41.9 Anxiety disorder, unspecified; Z88.5 Allergy status to narcotic agent; Z79.82 Long term (current) use of aspirin; Z79.899 Other long term (current) drug therapy; X58.XXXA Exposure to other specified factors, initial encounter
CPT/HCPCS: 27818; 36415; 73600; 73610; 80048; 85025; 96374; 96375; 99284; J2270; J2405

== ENCOUNTER 2018-12-15 16:05 | Emergency (ER) | payer OTHER, MEDICARE ==
[2018-12-15] MEDS ORDERED: Sodium Chloride 0.9% 1,000 ML IV ONE (16:13)
--- NOTE | 2018-12-15 16:32 | EDM.PDOC ---
ED HPI GENERAL MEDICAL PROBLEM - General Chief Complaint: Chest Pain Stated Complaint: AMB Time Seen by Provider: 12/15/18 16:09 Source of Information: Reports: Patient History Limitations: Reports: No Limitations - History of Present Illness INITIAL COMMENTS - FREE TEXT/NARRATIVE: HISTORY AND PHYSICAL: History of present illness: Patient is a 78-year-old female presents to the ED today via EMS from [place] with concern of chest pain over the past few hours. In route to the ED, EMS did give full dose aspirin to patient. Currently in the ED, patient states she has not having any chest pain but the chest pain has been coming and going over the past couple hours. Patient states when it does, it is a 7 out of 10 and dull. Patient denies any associated of symptoms with the chest pain. Patient did have recent surgery on 12/03/18 for bimalleolar fracture that she was sent to and has an external fixator currently in place of her left ankle and is currently at [place] for rehabilitation. Patient denies fever, chills, shortness of breath, or cough. Denies headache, neck stiff ness, change in vision, syncope, or near syncope. Denies nausea, vomiting, abdominal pain, diarrhea, constipation, or dysuria. Has not noted any blood in urine or stool. Patient has been eating and drinking appropriately. Review of systems: As per history of present illness and below otherwise all systems reviewed and negative. Past medical history: As per history of present illness and as reviewed below otherwise noncontributory. Surgical history: As per history of present illness and as reviewed below otherwise noncontributory. Social history: See social history for further information Family history: As per history of present illness and as reviewed below otherwise noncontributory. Physical exam: General: Patient is alert, oriented, and in no acute distress. Patient laying comfortably on exam table. HEENT: Atraumatic, normocephalic, pupils equal and reactive bilaterally, negative for conjunctival pallor or scleral icterus, mucous membranes dry, TMs normal bilaterally, throat clear, neck supple, nontender, trachea midline. No drooling or trismus noted. No meningeal signs. No hot potato voice noted. Lungs: Clear to auscultation, breath sounds equal bilaterally, chest nontender. Heart: S1S2, regular rate and rhythm without overt murmur Abdomen: Morbidly Obese, soft, nondistended, nontender. Negative for masses or hepatosplenomegaly. Negative for costovertebral tenderness. Pelvis: Stable nontender. Genitourinary: Deferred. Rectal: Deferred. Skin: Intact, warm, dry. No lesions or rashes noted. Extremities: Negative for cords or calf pain. Neurovascular unremarkable. Left external fixator intact on ankle. Neuro: Awake, alert, oriented. Cranial nerves II through XII unremarkable. Cerebellum unremarkable. Motor and sensory unremarkable throughout. Exam nonfocal. Notes: Dr. Conn verbally involved in patient care. Admission for observation was offered to patient but she refused. All risks versus benefits discussed with patient and expresses understanding. Denies any further questions or concerns at this time. Diagnostics: CBC, CMP, UA, EKG, chest x-ray, troponin, PT/INR Therapeutics: Normal saline Prescription: None Impression: Chest pain, unspecified Dehydration Plan: 1. You can use Tylenol as directed for pain and discomfort. 2. Follow-up with your primary care provider as discussed. Return to the ED as needed and as discussed. Definitive disposition and diagnosis as appropriate pending reevaluation and review of above. chest Pain Score (Numeric/FACES): 7 - Related Data Allergies Allergy/AdvReac Type Severity Reaction Status Date / Time codeine Allergy Dizziness Verified 12/15/18 16:10 Home Meds: Home Meds Sertraline [Zoloft] 25 mg PO DAILY 07/05/18 [History] Metoprolol Succinate 25 mg PO ASDIRECTED 12/03/18 [History] oxyCODONE HCl/Acetaminophen [Endocet 5-325 Tablet] 1 mg PO ASDIRECTED 12/03/18 [ History] traZODone HCl [Trazodone HCl] 100 gm MC ASDIRECTED 12/03/18 [History] Acetaminophen [Pain Reliever] 500 mg PO ASDIRECTED 12/15/18 [History] Cephalexin [Keflex] 500 mg PO Q6HR 12/15/18 [History] Enoxaparin Sodium [Lovenox] 1 injection SUBCUT DAILY 12/15/18 [History] Magnesium Hydroxide [Milk of Magnesia] 30 ml PO ASDIRECTED PRN 12/15/18 [History ] Past Medical History HEENT History: Reports: Hard of Hearing Cardiovascular History: Reports: Heart Murmur, Hypertension, SOB on Exertion, Other (See Below) Other Cardiovascular History: SVT Respiratory History: Reports: COPD Gastrointestinal History: Reports: Cholelithiasis Genitourinary History: Reports: None [employer] History: Reports: None Musculoskeletal History: Reports: Back Pain, Chronic, Fibromyalgia, Osteoarthritis, Other (See Below) Other Musculoskeletal History: malasie, lack of coordniation, non-displaced bimalleolar fracture of left lower leg, gait abnormalitie Neurological History: Reports: None Psychiatric History: Reports: Anxiety, Dementia, Other (See Below) Other Psychiatric History: Cognitive communication deficit Endocrine/Metabolic History: Reports: None Hematologic History: Reports: None Immunologic History: Reports: None Oncologic (Cancer) History: Reports: None Dermatologic History: Reports: None - Infectious Disease History Infectious Disease History: Reports: Chicken Pox, Measles, Mumps Other Infectious Disease History: childhood - Past Surgical History Head Surgeries/Procedures: Reports: None HEENT Surgical History: Reports: None Cardiovascular Surgical History: Reports: None Respiratory Surgical History: Reports: None GI Surgical History: Reports: Bariatric Procedure, Cholecystectomy Other GI Surgeries/Procedures: Stomach staple Female Surgical History: Reports: None Endocrine Surgical History: Reports: None Neurological Surgical History: Reports: None Musculoskeletal Surgical History: Reports: ORIF Oncologic Surgical History: Reports: None Dermatological Surgical History: Reports: None Social & Family History - Family History Family Medical History: Noncontributory HEENT: Reports: None Cardiac: Reports: DE Respiratory: Reports: None GI: Reports: None : Reports: None OBGYN: Reports: None Musculoskeletal: Reports: None Neurological: Reports: None Psychiatric: Reports: None Endocrine/Metabolic: Reports: None Hematologic: Reports: None Immunologic: Reports: None Dermatologic: Reports: None Oncologic: Reports: None - Tobacco Use Smoking Status *Q: Never Smoker Second Hand Smoke Exposure: No - Caffeine Use Caffeine Use: Reports: None Other Caffeine Use: 2 cups/day Caffeine Use Comment: 2 drinks/day - Recreational Drug Use Recreational Drug Use: No - Living Situation & Occupation Living situation: Reports: Occupation: Retired ED ROS GENERAL - Review of Systems Review Of Systems: ROS reveals no pertinent complaints other than HPI. ED EXAM, GENERAL - Physical Exam Exam: See Below (See dictation) Course - Vital Signs Last Recorded V/S: Last Vital Signs Temp 36.3 C 12/15/18 16:08 Pulse 89 12/15/18 16:08 Resp 18 12/15/18 16:08 BP 137/84 12/15/18 16:08 Pulse Ox 99 12/15/18 16:08 - Orders/Labs/Meds Orders: Active Orders 24 hr Category Date Time Status EKG Documentation Completion [RC] STAT Care 12/15/18 16:09 Active Labs: Laboratory Tests 12/15/18 12/15/18 12/15/18 Range/Units 16:25 16:25 16:25 WBC 8.12 (4.0-11.0) K/uL RBC 4.47 (4.30-5.90) M/uL Hgb 12.8 (12.0-16.0) g/dL Hct 39.6 (36.0-46.0) % MCV 88.6 (80.0-98.0) fL MCH 28.6 (27.0-32.0) pg MCHC 32.3 (31.0-37.0) g/dL RDW Std Deviation 59.2 (28.0-62.0) fl RDW Coeff of Britni 19 H (11.0-15.0) % Plt Count 460 H (150-400) K/uL MPV 9.60 (7.40-12.00) fL Neut % (Auto) 65.3 (48.0-80.0) % Lymph % (Auto) 20.8 (16.0-40.0) % Greene % (Auto) 11.3 (0.0-15.0) % Eos % (Auto) 2.5 (0.0-7.0) % Baso % (Auto) 0.1 (0.0-1.5) % Neut # (Auto) 5.3 (1.4-5.7) K/uL Lymph # (Auto) 1.7 (0.6-2.4) K/uL Greene # (Auto) 0.9 H (0.0-0.8) K/uL Eos # (Auto) 0.2 (0.0-0.7) K/uL Baso # (Auto) 0.0 (0.0-0.1) K/uL Nucleated RBC % 0.0 /100WBC Nucleated RBCs # 0 K/uL INR 1.02 Sodium 137 (136-145) mmol/L Potassium 4.1 (3.5-5.1) mmol/L Chloride 102 (98-107) mmol/L Carbon Dioxide 24.7 (21.0-32.0) mmol/L BUN 23 H (7.0-18.0) mg/dL Creatinine 0.9 (0.6-1.0) mg/dL Est Cr Clr Drug Dosing 54.71 mL/min Estimated GFR (MDRD) > 60.0 ml/min Glucose 113 H (74-106) mg/dL Calcium 9.1 (8.5-10.1) mg/dL Total Bilirubin 0.7 (0.2-1.0) mg/dL AST 24 (15-37) IU/L ALT 19 (14-63) IU/L Alkaline Phosphatase 189 H (46-116) U/L Troponin I < 0.050 (0.000-0.056) ng/mL Total Protein 7.6 (6.4-8.2) g/dL Albumin 2.8 L (3.4-5.0) g/dL Globulin 4.8 H (2.6-4.0) g/dL Albumin/Globulin Ratio 0.6 L (0.9-1.6) Urine Color Urine Appearance Urine pH (5.0-8.0) Ur Specific [place] (1.001-1.035) Urine Protein (NEGATIVE) mg/dL Urine Glucose (UA) (NEGATIVE) mg/dL Urine Ketones (NEGATIVE) mg/dL Urine Occult Blood (NEGATIVE) Urine Nitrite (NEGATIVE) Urine Bilirubin (NEGATIVE) Urine Ictotest Urine Urobilinogen (<2.0) EU/dL Ur Leukocyte Esterase (NEGATIVE) Urine RBC (0-2/HPF) Urine WBC (0-5/HPF) Ur Epithelial Cells (NONE-FEW) Urine Bacteria (NEGATIVE) Hyaline Casts (0-2/LPF) Urine Mucus (NONE-MOD) 12/15/18 Range/Units 17:15 WBC (4.0-11.0) K/uL RBC (4.30-5.90) M/uL Hgb (12.0-16.0) g/dL Hct (36.0-46.0) % MCV (80.0-98.0) fL MCH (27.0-32.0) pg MCHC (31.0-37.0) g/dL RDW Std Deviation (28.0-62.0) fl RDW Coeff of Britni (11.0-15.0) % Plt Count (150-400) K/uL MPV (7.40-12.00) fL Neut % (Auto) (48.0-80.0) % Lymph % (Auto) (16.0-40.0) % Greene % (Auto) (0.0-15.0) % Eos % (Auto) (0.0-7.0) % Baso % (Auto) (0.0-1.5) % Neut # (Auto) (1.4-5.7) K/uL Lymph # (Auto) (0.6-2.4) K/uL Greene # (Auto) (0.0-0.8) K/uL Eos # (Auto) (0.0-0.7) K/uL Baso # (Auto) (0.0-0.1) K/uL Nucleated RBC % /100WBC Nucleated RBCs # K/uL INR Sodium (136-145) mmol/L Potassium (3.5-5.1) mmol/L Chloride (98-107) mmol/L Carbon Dioxide (21.0-32.0) mmol/L BUN (7.0-18.0) mg/dL Creatinine (0.6-1.0) mg/dL Est Cr Clr Drug Dosing mL/min Estimated GFR (MDRD) ml/min Glucose (74-106) mg/dL Calcium (8.5-10.1) mg/dL Total Bilirubin (0.2-1.0) mg/dL AST (15-37) IU/L ALT (14-63) IU/L Alkaline Phosphatase (46-116) U/L Troponin I (0.000-0.056) ng/mL Total Protein (6.4-8.2) g/dL Albumin (3.4-5.0) g/dL Globulin (2.6-4.0) g/dL Albumin/Globulin Ratio (0.9-1.6) Urine Color YELLOW Urine Appearance SLT CLOUDY Urine pH 5.5 (5.0-8.0) Ur Specific [place] >= 1.030 (1.001-1.035) Urine Protein NEGATIVE (NEGATIVE) mg/dL Urine Glucose (UA) NEGATIVE (NEGATIVE) mg/dL Urine Ketones NEGATIVE (NEGATIVE) mg/dL Urine Occult Blood TRACE-INTACT H (NEGATIVE) Urine Nitrite NEGATIVE (NEGATIVE) Urine Bilirubin SMALL H (NEGATIVE) Urine Ictotest NEGATIVE Urine Urobilinogen 0.2 (<2.0) EU/dL Ur Leukocyte Esterase NEGATIVE (NEGATIVE) Urine RBC 0-2 (0-2/HPF) Urine WBC 0-1 (0-5/HPF) Ur Epithelial Cells RARE (NONE-FEW) Urine Bacteria RARE (NEGATIVE) Hyaline Casts 0-1 (0-2/LPF) Urine Mucus LIGHT (NONE-MOD) Meds: Medications Discontinued Medications Generic Name Dose Route Start Last Admin Trade Name Freq PRN Reason Stop Dose Admin Sodium Chloride 1,000 mls @ 999 mls/hr 12/15/18 16:13 12/15/18 16:39 Normal Saline IV 12/15/18 17:13 999 mls/hr STAT ONE Administration Departure - Departure Time of Disposition: 17:12 Disposition: Home, Self-Care 01 Clinical Impression: Dehydration Chest pain Qualifiers: Chest pain type: unspecified Qualified Code(s): R07.9 - Chest pain, unspecified - Discharge Information Instructions: Nonspecific Chest Pain, [id number], Dehydration, Elderly, Easy- to-Read Referrals: PCP,Unknown [Primary Care Provider] - Forms: ED Department Discharge Additional Instructions: The following information is given to patients seen in the emergency department who are being discharged to home. This information is to outline your options for follow-up care. We provide all patients seen in our emergency department with a follow-up referral. The need for follow-up, as well as the timing and circumstances, are variable depending upon the specifics of your emergency department visit. If you don't have a primary care physician on staff, we will provide you with a referral. We always advise you to contact your personal physician following an emergency department visit to inform them of the circumstance of the visit and for follow-up with them and/or the need for any referrals to a consulting specialist. The emergency department will also refer you to a specialist when appropriate. This referral assures that you have the opportunity for follow-up care with a specialist. All of these measure are taken in an effort to provide you with optimal care, which includes your follow-up. Under all circumstances we always encourage you to contact your private physician who remains a resource for coordinating your care. When calling for follow-up care, please make the office aware that this follow-up is from your recent emergency room visit. If for any reason you are refused follow-up, please contact the [facility] Emergency Department at and asked to speak to the emergency department charge nurse. [facility] [address] [place] [id number] [facility] [address] [place] [id number] 1. You can use Tylenol as directed for pain and discomfort. 2. Follow-up with your primary care provider as discussed. Return to the ED as needed and as discussed. - My Orders Last 24 Hours: My Active Orders 12/15/18 16:09 EKG Documentation Completion [RC] STAT - Assessment/Plan Last 24 Hours: My Active Orders 12/15/18 16:09 EKG Documentation Completion [RC] STAT
--- NOTE | 2018-12-15 16:40 | CR ---
Indication: Shortness of breath. Technique: A single AP portable view of the chest was obtained. Comparison: August 30, 2018. Findings: The heart is normal in size. The lungs are clear. No infiltrate, pleural effusion, or pneumothorax is identified. Impression: No acute cardiopulmonary process. Dictated by Bess Rojas MD @ Dec 15 2018 4:39PM Signed by Dr. Bess Rojas @ Dec 15 2018 4:40PM
[2018-12-15 16:54] LABS: BLOOD UREA NITROGEN,BUN 23 mg/dL (7.0-18.0); CARBON DIOXIDE,CO2 24.7 mmol/L (21.0-32.0); CHLORIDE,CL 102 mmol/L (98-107); GLUCOSE RANDOM 113 mg/dL (74-106); POTASSIUM,K 4.1 mmol/L (3.5-5.1); SODIUM,NA 137 mmol/L (136-145)
[2018-12-15 18:34] VITALS: BP 178/103; PULSE 85
== END 2018-12-15 18:20 | disposition home or self-care (01) ==
LOC: MW.ED 16:05
DX: R07.9 Chest pain, unspecified (principal); E86.0 Dehydration; I10 Essential (primary) hypertension; F41.9 Anxiety disorder, unspecified; F03.90 Unspecified dementia, unspecified severity, without behavioral disturbance, psychotic disturbance, mood disturbance, and anxiety; M19.90 Unspecified osteoarthritis, unspecified site; Z90.49 Acquired absence of other specified parts of digestive tract; Z98.84 Bariatric surgery status; Z79.899 Other long term (current) drug therapy; Z88.5 Allergy status to narcotic agent
CPT/HCPCS: 36415; 71045; 80053; 81001; 84484; 85025; 85610; 96360; 99285; J7040; 93005

== ENCOUNTER 2019-04-20 17:23 | Emergency (ER) | payer MEDICARE, OTHER ==
--- NOTE | 2019-04-20 18:44 | EDM.PDOC ---
ED HPI GENERAL MEDICAL PROBLEM - General Chief Complaint: Lower Extremity Injury/Pain Stated Complaint: FOOT INJURY Time Seen by Provider: 04/20/19 18:02 Source of Information: Reports: Patient History Limitations: Reports: Other (dementia) - History of Present Illness INITIAL COMMENTS - FREE TEXT/NARRATIVE: HISTORY AND PHYSICAL: History of present illness: Patient is a 78-year-old female, h/o dementia, who presents to the ED today from [facility] for concern of a fall that was unwitnessed and unknown time on when it occurred. Per report from the nursing staff, patient has been complaining of left ankle pain and states that she fell and tripped over a cat. Nursing staff stated that they noticed some redness of the area today but is unsure exactly when the fall occurred. Patient states she has some left ankle pain but denies any other symptoms or concerns. Patient unable to recall the event of the fall in the ED. Patient denies fever, chills, chest pain, shortness of breath, or cough. Denies headache, neck stiff ness, change in vision, syncope, or near syncope. Denies nausea, vomiting, abdominal pain, diarrhea, constipation, or dysuria. Has not noted any blood in urine or stool. Patient has been eating and drinking appropriately. Review of systems: As per history of present illness and below otherwise all systems reviewed and negative. Past medical history: As per history of present illness and as reviewed below otherwise noncontributory. Surgical history: As per history of present illness and as reviewed below otherwise noncontributory. Social history: See social history for further information Family history: As per history of present illness and as reviewed below otherwise noncontributory. Physical exam: General: Patient is alert, oriented to person and place but not time, and in no acute distress. Patient sitting comfortably on exam table. HEENT: Atraumatic, normocephalic, pupils equal and reactive bilaterally, negative for conjunctival pallor or scleral icterus, mucous membranes moist, TMs normal bilaterally, throat clear, neck supple, nontender, trachea midline. No drooling or trismus noted. No meningeal signs. No hot potato voice noted. Lungs: Clear to auscultation, breath sounds equal bilaterally, chest nontender. Heart: S1S2, regular rate and rhythm without overt murmur Abdomen: Soft, nondistended, nontender. Negative for masses or hepatosplenomegaly. Negative for costovertebral tenderness. Pelvis: Stable nontender. Genitourinary: Deferred. Rectal: Deferred. Skin: Intact, warm, dry. No lesions or rashes noted. Extremities/musculoskeletal: Atraumatic, negative for cords or calf pain. Neurovascular unremarkable. No obvious deformity of the complete spine. No step-offs, crepitus, or point tenderness to palpation of the spinous process of complete spine. There is a circular area of erythema, without warmth, overlying the distal fibula/medial malleolus of the left ankle. Patient does have pain with palpation of this area. Patient does have limited range of motion of the left ankle due to pain. Dorsalis pedis and posterior tibial pulses are grossly intact of the left lower extremity with capillary refill less than 2 seconds. Neuro: Awake, alert, oriented. Cranial nerves II through XII unremarkable. Cerebellum unremarkable. Motor and sensory unremarkable throughout. Exam nonfocal. Notes: Dr. Conn verbally involved in patient care. Area of erythema on the left ankle appears more to be a possible cellulitis. Unable to get all the imaging needed for fall due to patinet cooperation/ refusal. Will discharge back to half-way on standard head injury precautions and neurochecks per protocol. Voices understanding and is agreeable to plan of care. Denies any further questions or concerns at this time. Diagnostics: CBC, CMP, UA, EKG, Troponin, CXR, left ankle XR (unable to get head CT, cervical spine CT or pelvic XR due to patient refusal) Therapeutics: None Prescription: Keflex Impression: Cellulitis, left leg h/o fall, unwitnessed Plan: 1. Take medication as prescribed. You can use Tylenol as directed for pain and discomfort. 2. Follow-up with your primary care provider as discussed. Return to the ED as needed and as discussed. 3. Standard head injury precautions are taken with neuro checks per protocol of the half-way. Definitive disposition and diagnosis as appropriate pending reevaluation and review of above. left ankle Pain Score (Numeric/FACES): 8 - Related Data Allergies Allergy/AdvReac Type Severity Reaction Status Date / Time codeine Allergy Dizziness Verified 12/15/18 16:10 Home Meds: Home Meds Sertraline [Zoloft] 25 mg PO DAILY 07/05/18 [History] Metoprolol Succinate 25 mg PO DAILY 12/03/18 [History] traZODone HCl [Trazodone HCl] 100 gm MC ASDIRECTED 12/03/18 [History] Acetaminophen [Pain Reliever] 650 mg PO ASDIRECTED 12/15/18 [History] Magnesium Hydroxide [Milk of Magnesia] 30 ml PO ASDIRECTED PRN 12/15/18 [History ] Gabapentin [Neurontin] 1 cap PO Q6HR 04/20/19 [History] traMADol HCl [Tramadol HCl] 50 mg PO 04/20/19 [History] Past Medical History HEENT History: Reports: Hard of Hearing Cardiovascular History: Reports: Heart Murmur, Hypertension, SOB on Exertion, Other (See Below) Other Cardiovascular History: SVT Respiratory History: Reports: COPD Gastrointestinal History: Reports: Cholelithiasis Genitourinary History: Reports: None SAND TECHNICIAN History: Reports: None Musculoskeletal History: Reports: Back Pain, Chronic, Fibromyalgia, Osteoarthritis, Other (See Below) Other Musculoskeletal History: malasie, lack of coordniation, non-displaced bimalleolar fracture of left lower leg, gait abnormalitie Neurological History: Reports: None Psychiatric History: Reports: Anxiety, Dementia, Other (See Below) Other Psychiatric History: Cognitive communication deficit Endocrine/Metabolic History: Reports: None Hematologic History: Reports: None Immunologic History: Reports: None Oncologic (Cancer) History: Reports: None Dermatologic History: Reports: None - Infectious Disease History Infectious Disease History: Reports: Chicken Pox, Measles Other Infectious Disease History: childhood - Past Surgical History Head Surgeries/Procedures: Reports: None HEENT Surgical History: Reports: None Cardiovascular Surgical History: Reports: None Respiratory Surgical History: Reports: None GI Surgical History: Reports: Bariatric Procedure, Cholecystectomy Other GI Surgeries/Procedures: Stomach staple Female Surgical History: Reports: None Endocrine Surgical History: Reports: None Neurological Surgical History: Reports: None Musculoskeletal Surgical History: Reports: ORIF Oncologic Surgical History: Reports: None Dermatological Surgical History: Reports: None Social & Family History - Family History Family Medical History: Noncontributory HEENT: Reports: None Cardiac: Reports: SC Respiratory: Reports: None GI: Reports: None : Reports: None OBGYN: Reports: None Musculoskeletal: Reports: None Neurological: Reports: None Psychiatric: Reports: None Endocrine/Metabolic: Reports: None Hematologic: Reports: None Immunologic: Reports: None Dermatologic: Reports: None Oncologic: Reports: None - Tobacco Use Smoking Status *Q: Never Smoker - Caffeine Use Caffeine Use: Reports: None Other Caffeine Use: 2 cups/day Caffeine Use Comment: 2 drinks/day - Recreational Drug Use Recreational Drug Use: No - Living Situation & Occupation Living situation: Reports: Occupation: Retired Review of Systems - Review of Systems Review Of Systems: Comprehensive ROS is negative, except as noted in HPI. ED EXAM, GENERAL - Physical Exam Exam: See Below (see dictation) Course - Vital Signs Last Recorded V/S: Last Vital Signs Temp 96.4 F 04/20/19 17:33 Pulse 70 04/20/19 19:26 Resp 20 04/20/19 19:26 BP 154/72 H 04/20/19 19:26 Pulse Ox 98 04/20/19 19:26 - Orders/Labs/Meds Orders: Active Orders 24 hr Category Date Time Status EKG Documentation Completion [RC] STAT Care 04/20/19 18:23 Active UA RFX ONI AND CULT IF INDIC [URIN] Stat Lab 04/20/19 18:23 Ordered Labs: Laboratory Tests 04/20/19 04/20/19 Range/Units 18:55 18:55 WBC 6.14 (4.0-11.0) K/uL RBC 4.39 (4.30-5.90) M/uL Hgb 11.8 L (12.0-16.0) g/dL Hct 36.9 (36.0-46.0) % MCV 84.1 (80.0-98.0) fL MCH 26.9 L (27.0-32.0) pg MCHC 32.0 (31.0-37.0) g/dL RDW Std Deviation 61.4 (28.0-62.0) fl RDW Coeff of Britni 20 H (11.0-15.0) % Plt Count 324 (150-400) K/uL MPV 10.50 (7.40-12.00) fL Neut % (Auto) 53.9 (48.0-80.0) % Lymph % (Auto) 26.7 (16.0-40.0) % [place] % (Auto) 15.1 H (0.0-15.0) % Eos % (Auto) 4.1 (0.0-7.0) % Baso % (Auto) 0.2 (0.0-1.5) % Neut # (Auto) 3.3 (1.4-5.7) K/uL Lymph # (Auto) 1.6 (0.6-2.4) K/uL [place] # (Auto) 0.9 H (0.0-0.8) K/uL Eos # (Auto) 0.3 (0.0-0.7) K/uL Baso # (Auto) 0.0 (0.0-0.1) K/uL Nucleated RBC % 0.0 /100WBC Nucleated RBCs # 0 K/uL Sodium 143 (136-145) mmol/L Potassium 4.3 (3.5-5.1) mmol/L Chloride 106 (98-107) mmol/L Carbon Dioxide 28.8 (21.0-32.0) mmol/L BUN 18 (7.0-18.0) mg/dL Creatinine 0.9 (0.6-1.0) mg/dL Est Cr Clr Drug Dosing 54.71 mL/min Estimated GFR (MDRD) > 60.0 ml/min Glucose 103 (74-106) mg/dL Calcium 9.2 (8.5-10.1) mg/dL Total Bilirubin 0.9 (0.2-1.0) mg/dL AST 11 L (15-37) IU/L ALT 14 (14-63) IU/L Alkaline Phosphatase 143 H (46-116) U/L Troponin I < 0.050 (0.000-0.056) ng/mL Total Protein 7.7 (6.4-8.2) g/dL Albumin 3.2 L (3.4-5.0) g/dL Globulin 4.5 H (2.6-4.0) g/dL Albumin/Globulin Ratio 0.7 L (0.9-1.6) Departure - Departure Time of Disposition: 19:48 Disposition: Home, Self-Care 01 Clinical Impression: History of fall Cellulitis Qualifiers: Site of cellulitis: extremity Site of cellulitis of extremity: lower extremity Laterality: left Qualified Code(s): L03.116 - Cellulitis of left lower limb - Discharge Information Referrals: Morales Willard MD [Primary Care Provider] - Forms: ED Department Discharge Additional Instructions: The following information is given to patients seen in the emergency department who are being discharged to home. This information is to outline your options for follow-up care. We provide all patients seen in our emergency department with a follow-up referral. The need for follow-up, as well as the timing and circumstances, are variable depending upon the specifics of your emergency department visit. If you don't have a primary care physician on staff, we will provide you with a referral. We always advise you to contact your personal physician following an emergency department visit to inform them of the circumstance of the visit and for follow-up with them and/or the need for any referrals to a consulting specialist. The emergency department will also refer you to a specialist when appropriate. This referral assures that you have the opportunity for follow-up care with a specialist. All of these measure are taken in an effort to provide you with optimal care, which includes your follow-up. Under all circumstances we always encourage you to contact your private physician who remains a resource for coordinating your care. When calling for follow-up care, please make the office aware that this follow-up is from your recent emergency room visit. If for any reason you are refused follow-up, please contact the [facility] Emergency Department at and asked to speak to the emergency department charge nurse. [facility] [address] [place], [place] [id number] [place] [address] 1. Take medication as prescribed. You can use Tylenol as directed for pain and discomfort. 2. Follow-up with your primary care provider as discussed. Return to the ED as needed and as discussed. 3. Standard head injury precautions are taken with neuro checks per protocol of the half-way. Sepsis Event Note - Evaluation Sepsis Screening Result: No Definite Risk - Focused Exam Vital Signs: Vital Signs Temp Pulse Resp BP Pulse Ox 04/20/19 19:26 70 20 154/72 H 98 04/20/19 17:33 96.4 F 76 16 141/93 H 95 Date Exam was Performed: 04/20/19 Time Exam was Performed: 19:44 - My Orders Last 24 Hours: My Active Orders 04/20/19 18:23 EKG Documentation Completion [RC] STAT UA RFX ONI AND CULT IF INDIC [URIN] Stat - Assessment/Plan Last 24 Hours: My Active Orders 04/20/19 18:23 EKG Documentation Completion [RC] STAT UA RFX ONI AND CULT IF INDIC [URIN] Stat
--- NOTE | 2019-04-20 19:08 | CR ---
Left ankle: 3 views left ankle were obtained. Comparison: Prior left ankle study of 12/03/18. Deformity of the medial and lateral malleolus is seen compatible with previous fractures which appear to be healed. Spurring is noted off the anterior tibia. Bony structures are osteoporotic. Mild soft tissue swelling is noted. Mild degenerative change is noted at the talonavicular joint. Impression: 1. Old fracture deformities. 2. Osteoporosis and mild degenerative change. Diagnostic code #3 Study was dictated in [place] Standard Time
--- NOTE | 2019-04-20 19:13 | CR ---
Chest: Frontal view of the chest was obtained. Comparison: Previous chest x-ray of 12/15/18. Slight density is noted within the left upper lung and left midlung. Findings are felt to be fairly stable from prior exam presumably due to areas of scarring and possible pleural thickening. No acute parenchymal change is seen. Heart size appears within normal limits for technique. Tortuous thoracic aorta is seen. Bony structures are grossly intact. Impression: 1. Stable findings as noted above. 2. Nothing acute is appreciated on frontal chest x-ray. Diagnostic code #2 Study was dictated in [place] Standard Time
[2019-04-20 19:37] VITALS: BP 154/72; PULSE 70
[2019-04-20 19:41] LABS: BLOOD UREA NITROGEN,BUN 18 mg/dL (7.0-18.0); CARBON DIOXIDE,CO2 28.8 mmol/L (21.0-32.0); CHLORIDE,CL 106 mmol/L (98-107); GLUCOSE RANDOM 103 mg/dL (74-106); POTASSIUM,K 4.3 mmol/L (3.5-5.1); SODIUM,NA 143 mmol/L (136-145)
== END 2019-04-20 20:41 | disposition home or self-care (01) ==
LOC: MW.ED 17:23
DX: L03.116 Cellulitis of left lower limb (principal); I10 Essential (primary) hypertension; F03.90 Unspecified dementia, unspecified severity, without behavioral disturbance, psychotic disturbance, mood disturbance, and anxiety; F41.9 Anxiety disorder, unspecified; Z88.5 Allergy status to narcotic agent; Z79.899 Other long term (current) drug therapy; W01.0XXA Fall on same level from slipping, tripping and stumbling without subsequent striking against object, initial encounter
CPT/HCPCS: 36415; 71045; 71045-26; 73610-26-LT; 73610-LT; 80053; 84484; 85025; 93005; 99283; 99284-25

== ENCOUNTER 2021-12-21 11:53 | Emergency (ER) | payer OTHER ==
[2021-12-21 12:41] LABS: CARBON DIOXIDE,CO2 26.2 mmol/L (21.0-32.0); POTASSIUM,K 3.7 mmol/L (3.5-5.1)
[2021-12-21] MEDS ORDERED: Diltiazem 120 MG Cap.CD PO ONE (13:04)
[2021-12-21] MEDS ORDERED: Adenosine 6 MG/2 ML SDV IVPUSH ONE (15:32)
[2021-12-21 15:37] VITALS: BP 118/67; PULSE 79
== END 2021-12-21 15:35 | disposition home or self-care (01) ==
LOC: MW.ED 11:53
DX: I47.1 Supraventricular tachycardia (principal); Z88.5 Allergy status to narcotic agent; I10 Essential (primary) hypertension; J44.9 Chronic obstructive pulmonary disease, unspecified; Z79.899 Other long term (current) drug therapy
CPT/HCPCS: 36415; 71045; 80053; 85025; 93005; 96374; 99285; A9270; J0153; 93010; 99291

== ENCOUNTER 2022-03-16 13:08 | Observation (INO) | payer MEDICARE, MEDICAID, OTHER ==
[2022-03-16 18:10] LABS: BLOOD UREA NITROGEN,BUN 21 mg/dL (7.0-18.0); CARBON DIOXIDE,CO2 33.6 mmol/L (21.0-32.0); CHLORIDE,CL 106 mmol/L (98-107); GLUCOSE RANDOM 110 mg/dL (74-106); POTASSIUM,K 4.2 mmol/L (3.5-5.1); SODIUM,NA 145 mmol/L (136-145)
[2022-03-16 18:12] LABS: ESTIMATED GFR 65 mL/min (>60)
[2022-03-16] MEDS ORDERED: Sodium Chloride 0.9% 2.5 ML Syringe FLUSH PRN (19:09)
[2022-03-16] MEDS ORDERED: Sodium Chloride 0.9% 10 ML Syringe FLUSH PRN (19:09)
[2022-03-16] MEDS ORDERED: Benzocaine 20% Topical Spray UD MUCMEM ONE (19:19)
[2022-03-16] MEDS ORDERED: Ondansetron 4 MG/2 ML SDV IVPUSH PRN (19:49)
[2022-03-16 20:03] LABS: CORONAVIRUS COVID-19 NAA NEGATIVE (NEGATIVE); INFLUENZA A NAA NEGATIVE (NEGATIVE); INFLUENZA B NAA NEGATIVE (NEGATIVE)
[2022-03-16] MEDS: Sodium Chloride 0.9% 1,000 ML IV SCH (20:45)
[2022-03-16] MEDS: Heparin Sodium 5,000 Units/ML Vial SUBCUT SCH (20:46)
[2022-03-17] MEDS: Sodium Chloride 0.9% 1,000 ML IV SCH ×2 (05:02→14:19)
[2022-03-17] MEDS ORDERED: Labetalol 100 MG/20 ML MDV IVPUSH PRN (07:32)
[2022-03-17] MEDS: Heparin Sodium 5,000 Units/ML Vial SUBCUT SCH ×2 (08:12→20:40)
[2022-03-17 08:20] LABS: BLOOD UREA NITROGEN,BUN 15 mg/dL (7.0-18.0); CARBON DIOXIDE,CO2 29.4 mmol/L (21.0-32.0); CHLORIDE,CL 108 mmol/L (98-107); GLUCOSE RANDOM 97 mg/dL (74-106); POTASSIUM,K 3.5 mmol/L (3.5-5.1); SODIUM,NA 144 mmol/L (136-145)
[2022-03-17 08:24] LABS: ESTIMATED GFR 87 mL/min (>60)
[2022-03-17] MEDS ORDERED: Metoprolol Succinate 25 MG Tab.ER PO SCH (09:00)
[2022-03-17] MEDS ORDERED: Diltiazem 120 MG Cap.CD PO SCH (09:00)
[2022-03-17] MEDS ORDERED: Gabapentin 100 MG Cap PO SCH (12:00)
[2022-03-18 07:02] LABS: BLOOD UREA NITROGEN,BUN 10 mg/dL (7.0-18.0); CHLORIDE,CL 108 mmol/L (98-107); GLUCOSE RANDOM 88 mg/dL (74-106); POTASSIUM,K 3.5 mmol/L (3.5-5.1); SODIUM,NA 141 mmol/L (136-145)
[2022-03-18 07:06] LABS: ESTIMATED GFR 87 mL/min (>60)
[2022-03-18 08:29] VITALS: BP 164/73; PULSE 73
[2022-03-18] MEDS: Heparin Sodium 5,000 Units/ML Vial SUBCUT SCH (08:41)
[2022-03-18] MEDS ORDERED: Diltiazem 120 MG Cap.CD PO SCH (09:00)
== END 2022-03-18 11:25 ==
LOC: MW.ED 13:08 → MW.MS 18:46
PROVIDERS: ADMIT Internal Medicine; ATTEND Internal Medicine
DX: K56.7 Ileus, unspecified (principal); I10 Essential (primary) hypertension; M19.90 Unspecified osteoarthritis, unspecified site; J44.9 Chronic obstructive pulmonary disease, unspecified; M79.7 Fibromyalgia; F41.9 Anxiety disorder, unspecified; F03.90 Unspecified dementia, unspecified severity, without behavioral disturbance, psychotic disturbance, mood disturbance, and anxiety; E66.9 Obesity, unspecified; Z79.899 Other long term (current) drug therapy; Z88.5 Allergy status to narcotic agent; Z20.822 Contact with and (suspected) exposure to COVID-19
CPT/HCPCS: 0240U; 36415; 74018; 74019; 74176; 80053; 85025; 96360; 96361; 96372; 99285; A9270; G0378; J1644; J7030; U0002

== ENCOUNTER 2023-02-14 17:31 | Emergency (ER) | payer OTHER, MEDICAID ==
[2023-02-14] MEDS ORDERED: Albuterol/Ipratropium 3.0-0.5 MG/3 ML Neb Soln NEB ONE (17:47)
[2023-02-14] MEDS ORDERED: methylPREDNISolone Sodium Succinate 125 MG/2 ML SDV IVPUSH ONE (18:37)
[2023-02-14 18:47] LABS: BASOPHILS ABSOLUTE AUTO 0.02 K/uL (0.00-0.20); BASOPHILS PERCENT AUTO 0.2 % (0.0-1.0); EOSINOPHILS ABSOLUTE AUTO 0.05 K/uL (0.00-0.45); EOSINOPHILS PERCENT AUTO 0.5 % (0.0-6.0); HEMATOCRIT 40.9 % (37.0-47.0); HEMOGLOBIN 13.2 g/dL (12.0-16.0); IMMATURE GRAN ABSOLUTE AUTO 0.03 K/uL (0.00-0.05); IMMATURE GRAN PERCENT AUTO 0.3 % (0.0-0.4); LYMPHOCYTES ABSOLUTE AUTO 1.28 K/uL (1.00-4.80); LYMPHOCYTES PERCENT AUTO 11.8 % (24.0-44.0); MEAN CORPUSCULAR HEMOGLOBIN 27.6 pg (28.0-32.0); MEAN CORPUSCULAR HGB CONC 32.3 g/dL (32.0-36.0); MEAN CORPUSCULAR VOLUME 85.6 fL (83.0-99.0); MEAN PLATELET VOLUME 10.9 fL (9.4-12.3); MONOCYTES ABSOLUTE AUTO 1.43 K/uL (0.00-0.80); MONOCYTES PERCENT AUTO 13.2 % (0.0-8.0); NEUTROPHILS ABSOLUTE AUTO 8.02 K/uL (1.80-7.70); PLATELET COUNT,PLT 246 K/uL (150-400); RED BLOOD CELL COUNT 4.78 M/uL (4.10-5.30); WHITE BLOOD CELL COUNT,WBC 10.83 K/uL (3.9-11.3)
[2023-02-14 18:57] LABS: BASE EXCESS VENOUS 1.9 (-2.0-3.0); BICARBONATE,VENOUS 29 mEq/L (23-28); PCO2 VENOUS 56 mmHG (41-51); PH,VENOUS 7.33 (7.31-7.41)
[2023-02-14 18:58] LABS: INR 1.05 (0.86-1.11); PTT,PARTIAL THROMBOPLSTIN TIME 25.2 SEC (23.9-30.7)
[2023-02-14 19:00] LABS: PO2 VENOUS < 30 mmHG
[2023-02-14 19:05] LABS: A/G RATIO 0.6 (0.9-1.6); ALBUMIN 2.9 g/dL (3.4-5.0); BILIRUBIN TOTAL 0.9 mg/dL (0.2-1.0); C-REACTIVE PROTEIN 4.04 mg/dL (<0.3); CALCIUM 8.8 mg/dL (8.5-10.1); CARBON DIOXIDE,CO2 28.2 mmol/L (21.0-32.0); EST CRCL DRUG DOSING (CG) 45.15 mL/min; POTASSIUM,K 4.8 mmol/L (3.5-5.1); PROTEIN TOTAL,TP 7.8 g/dL (6.4-8.2)
[2023-02-14 19:22] LABS: CORONAVIRUS COVID-19 NAA NEGATIVE (NEGATIVE); INFLUENZA A NAA NEGATIVE (NEGATIVE); INFLUENZA B NAA NEGATIVE (NEGATIVE)
[2023-02-14] MEDS ORDERED: cefTRIAXone 2 GM in Sodium Chloride 0.9% 50 ML IV ONE (19:35)
[2023-02-14 19:54] VITALS: BP 138/65; PULSE 95
== END 2023-02-14 19:53 ==
LOC: MW.ED 17:31
DX: J44.1 Chronic obstructive pulmonary disease with (acute) exacerbation (principal); I10 Essential (primary) hypertension; J44.9 Chronic obstructive pulmonary disease, unspecified; E66.9 Obesity, unspecified; Z68.39 Body mass index [BMI] 39.0-39.9, adult; Z88.5 Allergy status to narcotic agent; Z79.899 Other long term (current) drug therapy; Z20.822 Contact with and (suspected) exposure to COVID-19
CPT/HCPCS: 0240U; 36415; 71045; 80053; 82803; 83735; 83880; 84484; 85025; 85610; 85730; 86140; 93005; 96374; 96375; 99285; J0696; J2930; J3490; 93010; 99284; J7620-GY